=== PATIENT | male | born 1965 | race Caucasian/White ===

== ENCOUNTER 2017-10-14 14:31 | Inpatient (IN) | payer OTHER ==
--- NOTE | 2017-10-14 15:17 | PDOC ---
History of Present Illness - History of Present Illness Initial Comments: 10/14/17 16:02 The patient is a 52 M, with PMHx of MS and past EtOH and opioid abuse, who presents with MS flare. Patient reports left side numbness and tingling since last night. He also reports pain behind his eye, right worse than left and states that it twitches intermittently. He also reports incontinence at times, most likely due to his MS. He reports shortness of breath, and generalized pain and weakness. He states that his legs have given out recently and he states that when he falls he favors his left side. Patient denies fever, chills, chest pain Social Hx: 1 cig/day. Denies current EtOH and drug use. <Talita Mims - Last Filed: 10/14/17 16:02> <Princess Huang - Last Filed: 10/14/17 18:25> - General Chief Complaint: Pain Stated Complaint: LT SIDE NUMBNESS Time Seen by Provider: 10/14/17 15:17 Past History <Talita Mims - Last Filed: 10/14/17 16:02> - Past Medical History Anemia: No Asthma: No Cancer: No Cardiac Disorders: No CVA: No COPD: No CHF: No Dementia: No Diabetes: No GI Disorders: No Disorders: No HTN: No Hypercholesterolemia: No Kidney Stones: No Liver Disease: No Seizures: No Thyroid Disease: No Other medical history: multiple sclerosis - Surgical History Abdominal Surgery: No Appendectomy: No Cardiac Surgery: No Cholecystectomy: No Lung Surgery: No Neurologic Surgery: No Orthopedic Surgery: Yes (ARTHROSCOPIC SX R KNEE 09/2008 IN [facility]) - Reproductive History Testicular Surgery: No - Suicide/Smoking/Psychosocial Hx Smoking History: Current every day smoker Have you smoked in the past 12 months: Yes Number of Cigarettes Smoked Daily: 20 Information on smoking cessation initiated: No 'Breaking Loose' booklet given: 05/04/17 Hx Alcohol Use: No Drug/Substance Use Hx: No Substance Use Type: Alcohol, Opiates, Prescribed Hx Substance Use Treatment: Yes ([facility]) <Princess Huang - Last Filed: 10/14/17 18:25> - Past Medical History Allergies/Adverse Reactions: Allergies Allergy/AdvReac Type Severity Reaction Status Date / Time No Known Drug Allergies Allergy Unknown Verified 10/14/17 14:55 LIVER Allergy Hives Uncoded 10/14/17 14:55 Home Medications: Ambulatory Orders Oxycodone HCl/Acetaminophen [Percocet 5-325 mg Tablet] 1 tab PO Q6H PRN Review of Systems - Review of Systems Comments:: 10/14/17 16:02 GENERAL/CONSTITUTIONAL: No fever or chills. +generalized weakness. HEAD, EYES, EARS, NOSE AND THROAT: No change in vision. No ear pain or discharge. No sore throat. GASTROINTESTINAL: No nausea, vomiting, diarrhea or constipation. GENITOURINARY: No dysuria, frequency, or change in urination. CARDIOVASCULAR: No chest pain. +shortness of breath. RESPIRATORY: No cough, wheezing, or hemoptysis. MUSCULOSKELETAL: No joint or muscle swelling or pain. No neck or back pain. SKIN: No rash NEUROLOGIC: +Left upper and lower extremity numbness and weakness. No headache, vertigo, loss of consciousness. ENDOCRINE: No increased thirst. No abnormal weight change. HEMATOLOGIC/LYMPHATIC: No anemia, easy bleeding, or history of blood clots. ALLERGIC/IMMUNOLOGIC: No hives or skin allergy. <Talita Mims - Last Filed: 10/14/17 16:02> *Physical Exam - Vital Signs Last Vital Signs Temp Pulse Resp BP Pulse Ox 98.7 F 99 H 16 150/81 100 10/14/17 14:52 10/14/17 14:52 10/14/17 14:52 10/14/17 14:52 10/14/17 14:52 - Physical Exam Comments: 10/14/17 16:04 Constitutional: Awake, alert, oriented. No acute distress. Head: Normocephalic. Atraumatic Eyes: Right pupil - 4. Left pupil - 3. EOMI. Conjunctivae are not pale. ENT: Mucous membranes are moist and intact. Posterior pharynx without exudates or erythema. Uvula midline. Neck: Supple. Full ROM. No lymphadenopathy. Cardiovascular: Regular rate. Regular rhythm. S1, S2 regular. Distal pulses are 2+ and symmetric. Pulmonary/Chest: No evidence of respiratory distress. Clear to auscultation bilaterally No wheezing, rales or rhonchi. Abdominal: Soft and non-distended. There is no tenderness. No rebound, guarding or rigidity. No organomegaly. No palpable masses. Good bowel sounds. Back: No CVA tenderness. Musculoskeletal: No edema. No cyanosis. No clubbing. Full range of motion in all extremities. No calf tenderness. Radial/pedal pulses are intact and 2+ bilaterally Skin: Skin is warm and dry. No petechiae. No purpura. Neurological: Alert and oriented to person, place, and time. Cranial nerves II -XII are grossly intact. Normal speech. Muscle strength 4/5. Decreased sensation in left upper and lower extremities. No external signs of trauma. Psychiatric: Good eye contact. Normal interaction, affect and behavior. <Talita Mims - Last Filed: 10/14/17 16:02> - Vital Signs Last Vital Signs Temp Pulse Resp BP Pulse Ox 98.7 F 99 H 16 150/81 100 10/14/17 14:52 10/14/17 14:52 10/14/17 14:52 10/14/17 14:52 10/14/17 14:52 <Princess Huang - Last Filed: 10/14/17 18:25> Heart Score/ECG Review - ECG Intrepretation Comment:: 10/14/17 16:23 sinus at 89, nl axis, nl interval, no acute st/t wave findings <Princess Huang - Last Filed: 10/14/17 18:25> ED Treatment Course - LABORATORY CBC & Chemistry Diagram: 10/14/17 16:14 10/14/17 16:14 <Princess Huang - Last Filed: 10/14/17 18:25> Medical Decision Making - Medical Decision Making 10/14/17 15:28 a/p: 52yo male with hx of MS on copaxone with recent falls, L sided numbness, eye pain concerning for an MS flair. States he has been compliant with his copaxone, but with R eye pain, photophobia - has been at [facility] multiple times for MS flair and received IV solumedrol. does not follow with a neurologist -fall last night and hit his head - will obtain head ct, will need MRI -labs -hx of drug use, will check drug screen, pt denies recent drug use -decreased sensation to L side -will check labs, ekg, cxr, head ct -ivf hydration -call placed to Dr. Figueroa from neuro, though I suspect this is an MS flair and will start IV solumedrol 10/14/17 15:31 optic nerve size <5 on bedside u/s b/l 10/14/17 16:[address] Figueroa - recommends starting iv solumedrol will see in consult recommends MRI w/wo brain will need admission 10/14/17 18:03 pending official radiology read - but no acute findings on cxr or head ct will admit to [facility] for MS flair 10/14/17 18:[address] Caba who accepts pt to service <Princess Huang - Last Filed: 10/14/17 18:25> *DC/Admit/Observation/Transfer - Attestations Scribe Attestion: 10/14/17 16:07 Documentation prepared by Talita Mims, acting as outside medical sales representative for Princess Huang DO. <Talita Mims - Last Filed: 10/14/17 16:02> - Discharge Dispostion Admit: Yes - Attestations Physician Attestion: 10/14/17 15:41 I, Dr. Princess Huang, DO, attest that this document has been prepared under my direction and personally reviewed by me in its entirety. I further attest, that it accurately reflects all work, treatment, procedures and medical decision -making performed by me. <Princess Huang - Last Filed: 10/14/17 18:25> Diagnosis at time of Disposition: Multiple sclerosis exacerbation - Discharge Dispostion Condition at time of disposition: Fair
[2017-10-14] MEDS ORDERED: SODIUM CHLORIDE 0.9% 1000 ML INFUS.BAG IV ONE (15:27)
[2017-10-14] MEDS ORDERED: methylPREDNISolone NA SUCC 125 MG/2 ML VIAL IVPB ONE (16:20)
[2017-10-14 16:27] LABS: BASO % 0.8 % (0-2.0); EOS % 0.4 % (0-4.5); HEMATOCRIT 37.5 % (35.4-49); HEMOGLOBIN 12.6 GM/dL (11.7-16.9); MCH 29.7 pg (25.7-33.7); MCHC 33.5 g/dl (32.0-35.9); MEAN CELL VOLUME 88.6 fl (80-96); MEAN PLT VOLUME 7.8 fl (7.5-11.1); MONO % 9.8 % (3.8-10.2); PLATELET COUNT 350 K/MM3 (134-434); RBC 4.23 M/mm3 (4.00-5.60); WHITE BLOOD COUNT 10.2 K/mm3 (4.0-10.0)
[2017-10-14] MEDS ORDERED: methylPREDNISolone NA SUCC 1000 MG/8 ML VIAL ONE (16:43)
[2017-10-14 16:54] LABS: ALBUMIN 3.5 g/dl (3.4-5.0); ANION GAP 5 (8-16); BILIRUBIN,TOTAL 0.5 mg/dL (0.2-1.0); BLOOD UREA NITROGEN 10 mg/dL (7-18); CALCIUM 8.6 mg/dL (8.5-10.1); CHLORIDE 105 mmol/L (98-107); CO2 31 mmol/L (21-32); CREATININE 0.9 mg/dL (0.7-1.3); GLUCOSE,RANDOM 83 mg/dL (74-106); POTASSIUM 4.3 mmol/L (3.5-5.1); SGOT/AST 29 U/L (15-37); SGPT/ALT 52 U/L (12-78); SODIUM 141 mmol/L (136-145); TOT PROT 7.4 g/dl (6.4-8.2)
[2017-10-14 16:57] LABS: ALK PHOS 68 U/L (45-117)
--- NOTE | 2017-10-14 19:27 | PN ---
Teaching Attending Note Name of Resident: Alysa Kiser ATTENDING PHYSICIAN STATEMENT I saw and evaluated the patient. I reviewed the resident's note and discussed the case with the resident. I agree with the resident's findings and plan as documented. SUBJECTIVE: 52 M w. Pmhx. of MS and hx. of ETOH/Opiod abuse who presents with L. sided numbness and tingling. Also states he has [ain behind his eyes. Notes this is worse in L. eye. Also, states he has had increased falling, more toward the left side. Denies any chest pain or pressure. OBJECTIVE: Physical: VS: Vital Signs Period Temp Pulse Resp BP Sys/James Pulse Ox Last 24 Hr 97.8 F-98.7 F 84-99 16-18 118-150/81-82 98-100 GEN:NAD, Resting in bed, AA0X3 HEENT: NCAT, PERRL, Throat without erythema or exudates CARD: RRR S1, S2 RESP: CTAB ABD: BSx4, NTD to palpation EXT/NEURO: MS decreased in LUE and LLE +2/5, RUE/RLE +3/5 Sensation decreased left face and extremities, unable to do occular movements due to pain. CBCD WBC 10.2 K/mm3 (4.0-10.0) H D 10/14/17 16:14 RBC 4.23 M/mm3 (4.00-5.60) 10/14/17 16:14 Hgb 12.6 GM/dL (11.7-16.9) 10/14/17 16:14 Hct 37.5 % (35.4-49) 10/14/17 16:14 MCV 88.6 fl (80-96) 10/14/17 16:14 MCHC 33.5 g/dl (32.0-35.9) 10/14/17 16:14 RDW 16.0 % (11.9-15.9) H 10/14/17 16:14 Plt Count 350 K/MM3 (134-434) 10/14/17 16:14 MPV 7.8 fl (7.5-11.1) D 10/14/17 16:14 CMP Sodium 141 mmol/L (136-145) 10/14/17 16:14 Potassium 4.3 mmol/L (3.5-5.1) 10/14/17 16:14 Chloride 105 mmol/L (98-107) 10/14/17 16:14 Carbon Dioxide 31 mmol/L (21-32) 10/14/17 16:14 Anion Gap 5 (8-16) L 10/14/17 16:14 BUN 10 mg/dL (7-18) D 10/14/17 16:14 Creatinine 0.9 mg/dL (0.7-1.3) 10/14/17 16:14 Creat Clearance w eGFR > 60 (>60) 10/14/17 16:14 Random Glucose 83 mg/dL (74-106) D 10/14/17 16:14 Calcium 8.6 mg/dL (8.5-10.1) 10/14/17 16:14 Total Bilirubin 0.5 mg/dL (0.2-1.0) D 10/14/17 16:14 AST 29 U/L (15-37) D 10/14/17 16:14 ALT 52 U/L (12-78) 10/14/17 16:14 Alkaline Phosphatase 68 U/L (45-117) 10/14/17 16:14 Total Protein 7.4 g/dl (6.4-8.2) 10/14/17 16:14 Albumin 3.5 g/dl (3.4-5.0) 10/14/17 16:14 CARDIAC ENZYMES Creatine Kinase 125 IU/L (39-308) 10/14/17 16:14 Troponin I < 0.02 ng/ml (0.00-0.05) 10/14/17 16:14 EKG: sinus at 89, nl axis, nl interval, no acute st/t wave findings ASSESSMENT AND PLAN: 52 M with hx. of MS who presents with L. sided numbness, tingling 1.) MS Flare - Solu-Medrol 1000 daily - MRI Brain - Neuro consult - TSH, B12, Folate - PT/OT 2.) Hx. of Opiod/ETOH abuse - U tox 3.) Dvt Ppx - Scds Place in Tele
--- NOTE | 2017-10-14 20:10 | HP ---
CHIEF COMPLAINT: MS Flare PCP: Dr Mohsen Chapman HISTORY OF PRESENT ILLNESS: 52yo M w/ PMHx of Multiple Sclerosis since 2004 w/ multiple flare-ups who presents with signs/symptoms of an MS flare. Last night he felt numbness along left side of body and face, in addition to eye pain, blurry vision, and generalized body weakness. He normally ambulates in a wheelchair, but yesterday he stood up and felt his legs giving out, and subsequently fell onto his L side , prompting him to come to the hospital. He just moved from [place], where he followed w/ a neurologist and had numerous admissions for MS flares. He currently lives alone, w/o any family or aids. In the ER, vital signs were stable. Head CT was obtained which showed no acute pathology on their read. Labs are wnl. Neurology Dr Figueroa was contacted, who recommended starting IV Solumedrol and MRI tmrw. Recent Travel: Moved from [place] PAST MEDICAL HISTORY: Multiple Sclerosis, past EtOH abuse, ?past opioid abuse PAST SURGICAL HISTORY: None Social History: Smoking: Yes. Alcohol: Denies Drugs: Denies Family History: Allergies: No Known Drug Allergies Allergy (Unknown, Verified 10/14/17 14:55). LIVER Allergy (Uncoded 10/14/17 14:55) Hives REVIEW OF SYSTEMS CONSTITUTIONAL: +generalized weakness Absent: fever, chills, diaphoresis, malaise, loss of appetite, weight change HEENT: Absent: rhinorrhea, nasal congestion, throat pain, throat swelling, difficulty swallowing, mouth swelling, ear pain, eye pain, visual changes CARDIOVASCULAR: Absent: chest pain, syncope, palpitations, irregular heart rate , lightheadedness, peripheral edema RESPIRATORY: Absent: cough, shortness of breath, dyspnea with exertion, orthopnea, wheezing, stridor, hemoptysis GASTROINTESTINAL:Absent: abdominal pain, abdominal distension, nausea, vomiting , diarrhea, constipation, melena, hematochezia GENITOURINARY: Absent: dysuria, frequency, urgency, hesitancy, hematuria, flank pain, genital pain MUSCULOSKELETAL: Absent: myalgia, arthralgia, joint swelling, back pain, neck pain SKIN: Absent: rash, itching, pallor HEMATOLOGIC/IMMUNOLOGIC: Absent: easy bleeding, easy bruising, lymphadenopathy, frequent infections ENDOCRINE:Absent: unexplained weight gain, unexplained weight loss, heat intolerance, cold intolerance NEUROLOGIC: +focal weakness, unsteady gait Absent: headache, paresthesias, dizziness, seizure, mental status changes, bladder or bowel incontinence PSYCHIATRIC: Absent: anxiety, depression, suicidal or homicidal ideation, hallucinations. PHYSICAL EXAMINATION Vital Signs Period Temp Pulse Resp BP Sys/James Pulse Ox Last 24 Hr 97.8 F-98.7 F 84-99 16-18 118-150/81-82 98-100 GEN: AAOx3, NAD, lying comfortably, smiling at examiner HEENT: PERRLA, EOMi, +pain w/ EOM, no nystagmus CV: S1, S2, RRR LUNG: CTABL ABD: Distended, nontender, soft, normoactive BS MSK: +4/5 strength in UE and LE bilaterally NEURO: CN 2-12 grossly intact Decreased sensation to L face, LUE, LLE +dysmetria, disdiadokinessia No focal muscle weakness Home Medications Medication Instructions Recorded Oxycodone HCl/Acetaminophen 1 tab PO Q4H PRN 05/04/17 [Percocet 5-325 mg Tablet] Gabapentin [Neurontin] 300 mg PO TID 10/14/17 Glatiramer Acetate [COPAXONE (Non 20 mg SQ DAILY 10/14/17 Formulary)] ASSESSMENT/PLAN: 52yo M w/ PMHx of Multiple Sclerosis since 2004 who presents with signs/ symptoms of MS flare. # Multiple Sclerosis Flare -- Pt presents w/ multiple neurological complaints c/w MS flare. Unlikely TIA/ CVA. Neurology ([facility]) contacted in ER. Will treat w/ IV Solu-medrol 1g daily. Possible ?past hx of opioid abuse according to ER note, so will pain control w/ IV Tylenol for now. MRI w/ contrast ordered for tmrw. Patient will also need social work/case mgmt, not able to take care of himself alone. # Leukocytosis -- Likely 2/2 home Copaxone use # FEN/PPx -- Regular diet. SCDs. PT ordered # Dispo -- Admit to med/surg Case d/w Dr Alvarado & Dr Syed Ha MD - PGY1 Night Ticket Puller. Dr Diaz to takeover care in the AM Visit type - Emergency Visit Emergency Visit: Yes ED Registration Date: 10/14/17 Care time: The patient presented to the Emergency Department on the above date and was hospitalized for further evaluation of their emergent condition. - New Patient This patient is new to me today: Yes Date on this admission: 10/15/17 - Critical Care Critical Care patient: No Hospitalist Screening - Colonoscopy Questionnaire Colonoscopy Questionnaire: Colonoscopy Questionnaire - Patient: 50 - 75 years old and never had a screening colonoscopy: Unknown History of colon or rectal polyps, or CA: Unknown History of IBD, Crohn's disease or UC: Unknown History of abdominal radiation therapy as a child: Unknown - Relative: 1 with colon or rectal CA, or polyps at age 60 or younger: Unknown Colon or rectal CA diagnosed at age 45 or younger: Unknown Multiple relatives with colon or rectal CA: Unknown - Outcome: Screening Result: Negative Screen
[2017-10-14 20:17] LABS: URINE APPEARANCE CLEAR; URINE BILIRUBIN NEGATIVE (<2.0 mg/dL); URINE BLOOD NEGATIVE (NEGATIVE); URINE COLOR LTYELLOW; URINE GLUCOSE (UA) NEGATIVE (NEGATIVE); URINE KETONE NEGATIVE (NEGATIVE); URINE LEUK ESTERASE NEGATIVE (NEGATIVE); URINE NITRITE NEGATIVE (NEGATIVE); URINE PROTEIN NEGATIVE (NEGATIVE)
[2017-10-14 20:28] LABS: COCAINE, UR NEGATIVE ng/ml (CUTOFF=300); URINE AMPHETAMINES NEGATIVE ng/ml (CUTOFF=500); URINE BARBITURATES NEGATIVE ng/ml (CUTOFF=200); URINE BENZODIAZEPINES NEGATIVE ng/ml (CUTOFF=200)
[2017-10-14 20:29] LABS: METHADONE, UR NEGATIVE ng/ml (CUTOFF=300); OPIATES, URI NEGATIVE ng/ml (CUTOFF=300); PHENCYCLIDINE,URINE NEGATIVE ng/ml (CUTOFF=25)
[2017-10-14] MEDS ORDERED: GABAPENTIN 100 MG CAPSULE (FP) ONE (22:25)
[2017-10-14] MEDS: GABAPENTIN 300 MG CAPSULE (FP) PO SCH (22:35)
[2017-10-15] MEDS ORDERED: ACETAMINOPHEN 1000 MG/100 ML VIAL (NON FORMULARY) IVPB PRN (00:13)
[2017-10-15] MEDS ORDERED: ACETAMINOPHEN INJECTION 100 ML IVPB ONE (01:29)
[2017-10-15] MEDS: GABAPENTIN 300 MG CAPSULE (FP) PO SCH ×3 (06:25→21:24)
[2017-10-15 07:06] LABS: HEMATOCRIT 36.9 % (35.4-49); HEMOGLOBIN 12.3 GM/dL (11.7-16.9); MCH 29.8 pg (25.7-33.7); MCHC 33.4 g/dl (32.0-35.9); MEAN CELL VOLUME 89.1 fl (80-96); MEAN PLT VOLUME 7.5 fl (7.5-11.1); PLATELET COUNT 337 K/MM3 (134-434); RBC 4.15 M/mm3 (4.00-5.60); RDW 15.6 % (11.9-15.9); WHITE BLOOD COUNT 10.7 K/mm3 (4.0-10.0)
[2017-10-15 07:35] LABS: ANION GAP 4 (8-16); BLOOD UREA NITROGEN 16 mg/dL (7-18); CALCIUM 8.6 mg/dL (8.5-10.1); CHLORIDE 106 mmol/L (98-107); CO2 28 mmol/L (21-32); CREATININE 0.9 mg/dL (0.7-1.3); GLUCOSE,RANDOM 146 mg/dL (74-106); MAGNESIUM 2.5 mg/dL (1.8-2.4); PHOSPHOROUS 3.7 mg/dL (2.5-4.9); POTASSIUM 4.5 mmol/L (3.5-5.1); SODIUM 138 mmol/L (136-145)
[2017-10-15] MEDS ORDERED: methylPREDNISolone NA SUCC 1000 MG/8 ML VIAL IVPB SCH (10:00)
[2017-10-15] MEDS ORDERED: HYDROCORTISONE SOD SUCCINATE 250 MG/2 ML ML ONE (10:13)
[2017-10-15] MEDS ORDERED: methylPREDNISolone NA SUCC 1000 MG/8 ML VIAL ONE (10:20)
[2017-10-15] MEDS: METHYLPREDNISOLONE NA SUCC 1,000 MG in DEXTROSE 5%-WATER - 250 ML IVPB SCH (10:30)
[2017-10-15 11:11] VITALS: BMI 27.8
--- NOTE | 2017-10-15 11:34 | CON.NEURO ---
Consult - Alcohol/Substance Use Hx Alcohol Use: No - Smoking History Smoking history: Current some day smoker Have you smoked in the past 12 months: Yes Aproximately how many cigarettes per day: 1 Home Medications - Allergies Allergies/Adverse Reactions: Allergies Allergy/AdvReac Type Severity Reaction Status Date / Time No Known Drug Allergies Allergy Unknown Verified 10/14/17 14:55 LIVER Allergy Hives Uncoded 10/14/17 14:55 - Home Medications Home Medications: Ambulatory Orders Oxycodone HCl/Acetaminophen [Percocet 5-325 mg Tablet] 1 tab PO Q4H PRN Gabapentin [Neurontin] 300 mg PO TID 10/14/17 Glatiramer Acetate [COPAXONE (Non Formulary)] 20 mg SQ DAILY 10/14/17 Family Disease History - Family Disease History Family Disease History: Diabetes: Mother, Heart Disease: Sister Physical Exam-Neuro Vital Signs: Vital Signs Temperature 97.8 F 10/15/17 07:45 Pulse Rate 93 H 10/15/17 11:05 Respiratory Rate 18 10/15/17 11:05 Blood Pressure 119/77 10/15/17 11:05 O2 Sat by Pulse Oximetry (%) 94 L 10/15/17 11:05 Labs: CBC, BMP 10/15/17 06:00 10/15/17 06:00 Assessment/Plan cc History of MS , came with left arm, face and leg numbness HPI 52 year old male history of MS for last 17 years. Patient is wheel chair bound and he recently moved to [place] from [place], 9 months ago. He felt left arm , face and leg numbness and generalized weaknes.alma delia Erazo is on copaxone currently. He has multiple admission for MS flare in past. PMH MS , ETOH and opioid abuse Smoker, Disabled FH ,ROS, SH reviewed in [facility] Allergies: No Known Drug Allergies Allergy (Unknown, Verified 10/14/17 14:55). LIVER Allergy (Uncoded 10/14/17 14:55) Hives Home Medications Medication Instructions Recorded Oxycodone HCl/Acetaminophen 1 tab PO Q4H PRN 05/04/17 [Percocet 5-325 mg Tablet] Gabapentin [Neurontin] 300 mg PO TID 10/14/17 Glatiramer Acetate [COPAXONE (Non 20 mg SQ DAILY 10/14/17 Formulary)] Neurological Examination Alert oriented x 3, speehc is normal , no acute distress CN eomi, pupils reactive, no face asymmetry, diminished sensation on left side of face Strenght in upper extremity is normal, slight dysmetria in upper extremity Lower extremity is garde 1+ and diminished sensation in left arm and leg Assessment- MS , acute flare , left sided face arm and leg numbness Plan- IV solumedrol 1 gm for three days - Consider Short term Rehab -mri of brain with and without contrast Thanking you so much Darian Figueroa MD
--- NOTE | 2017-10-15 11:41 | CONSULT ---
Admitting History and Physical - Admission History of Present Illness: 52yo M w/ PMHx of Multiple Sclerosis since 2004 who presents with signs/ symptoms of MS flare. Selected Entries 10/14/17 10/14/17 10/15/17 14:52 18:53 00:30 Temperature 98.7 F 97.8 F 99 F 10/15/17 07:45 Temperature 97.8 F Laboratory Tests 10/14/17 10/15/17 16:14 06:00 WBC 10.2 H D 10.7 H History Source: Patient, Medical Record Limitations to Obtaining History: No Limitations - Smoking History Smoking history: Current some day smoker Have you smoked in the past 12 months: Yes Aproximately how many cigarettes per day: 1 - Alcohol/Substance Use Hx Alcohol Use: No History - Admission Reason For Visit: EXACERBATION OF MULTIPLE SCLEROSIS - Diagnostics X-ray: Pending CT Scan: Report Reviewed - General Mental Status: Alert and Oriented, Awake and Alert, Able to Follow Commands Attention: Intact Ability to Follow Directions: Excellent Head/Neck Control: WFL - Hearing Hearing: Normal Speech Evaluation - Communication Primary Language: MALTESE Communication: Yes: Within Normal Limits Oral Expression Ability: Yes: No Impairment - Speech Production Able to Make Needs Known: Yes: WNL Intelligibility: Yes: WNL - Speech Characteristics Voice Loudness: Mildly Soft/Quiet Voice Pitch: Yes: Normal Voice Phonatory-based Quality: Yes: Normal Speech Pattern: Normal Speech Clarity: < 100% Nasal Resonance: Normal - Language/Auditory Comprehension Follows: Yes: 2 Stage Simple Commands - Language/Verbal Expression Able to Respond to Simple Queries: Yes: WNL Able to Communicate Wants and Needs: Yes: WNL Functional Communication Status: Yes: WNL - Swallow Evaluation/Bedside Assessment Current Nutritional Intake: Regular, Thin Liquids Oral Secretions: Yes: WFL Dentition: Yes: Edentulous Facial Symmetry at Rest: Facial Droop Left Facial Symmetry on Retraction: Facial Droop Left Facial Movement: Controlled Against Resistance Opening: Normal Against Resistance Closing: Normal Pucker Lips: Normal Smile: Normal Lingual Movement: Normal, Symmetric Lingual Speed of Movement: Normal Lingual Movement Strgth Against Opposition: Normal Lingual Movement Characteristics: Normal Velopharyngeal Movement: Normal Laryngeal Elevation: WFL Laryngeal Movement: Able to Palpate Rate of Intake: WFL Bolus Size: WFL Labial Seal: WFL Chewing: Impaired (edentulous.Requires soft, cohesive, easy to chew foods.) Oral Prep Time: WFL A-P Transit: WFL Pocketing: None Timing of Swallow: WFL Coughing/Throat Clear: No (3 oz water test (-)) Change in Voice: No Recommendations - Speech Evaluation, Impression/Plan Impression: 3 oz water test (-) - Disposition Discharge to: To be Determined - Dysphagia Impressions/Plan Swallowing Skills: WFL Dysphagia Impressions: No Impairment *Silent aspiration: cannot be R/O at bedside - Recommendations Diet Consistency: Regular (edentulous.Requires soft, cohesive, easy to chew foods.) Medication Administration: Whole with water Liquids: Thin Liquids
--- NOTE | 2017-10-15 12:24 | EKG ---
Test Reason : Blood Pressure : / mmHG Vent. Rate : 089 BPM Atrial Rate : 089 BPM P-R Int : 154 ms QRS Dur : 086 ms QT Int : 374 ms P-R-T Axes : 037 045 028 degrees QTc Int : 455 ms POOR DATA QUALITY, INTERPRETATION MAY BE ADVERSELY AFFECTED NORMAL SINUS RHYTHM POSSIBLE LEFT ATRIAL ENLARGEMENT BORDERLINE ECG WHEN COMPARED WITH ECG OF 04-MAY-2017 13:52, CRITERIA FOR SEPTAL INFARCT ARE NO LONGER PRESENT T WAVE AMPLITUDE HAS INCREASED IN LATERAL LEADS Confirmed by FREYA CORLEY MD ([id number]) on 10/15/2017 12:24:10 PM Referred By: Confirmed By:FREYA CORLEY MD
--- NOTE | 2017-10-15 13:30 | PN ---
Progress Note, Physician Chief Complaint: complaining of diffuse body pain says its his MS flare - Current Medication List Current Medications: Active Medications Acetaminophen (Ofirmev Injection -) 1,000 mg IVPB Q6H PRN PRN Reason: Pain Last Admin: 10/15/17 02:08 Dose: 1,000 mg Gabapentin (Neurontin -) 300 mg PO TID [facility] Last Admin: 10/15/17 06:25 Dose: 300 mg Methylprednisolone Sodium (Succinate 1,000 mg/ Dextrose) 258 mls @ 258 mls/hr IVPB DAILY [facility] Last Admin: 10/15/17 10:30 Dose: 258 mls/hr Morphine Sulfate (Morphine Injection -) 4 mg IVPUSH Q4H PRN PRN Reason: PAIN LEVEL 7 - 10 Oxycodone/Acetaminophen (Percocet 5/325 -) 2 combo PO Q6HPO PRN PRN Reason: PAIN LEVEL 7 - 10 - Objective Vital Signs: Vital Signs Temperature 97.8 F 10/15/17 07:45 Pulse Rate 93 H 10/15/17 11:05 Respiratory Rate 18 10/15/17 11:05 Blood Pressure 119/77 10/15/17 11:05 O2 Sat by Pulse Oximetry (%) 94 L 10/15/17 11:05 Constitutional: Yes: Calm Cardiovascular: Yes: Regular Rate and Rhythm, S1, S2 Respiratory: Yes: CTA Bilaterally Gastrointestinal: Yes: Normal Bowel Sounds, Soft Edema: No Neurological: Yes: Alert, Oriented Labs: CBC, BMP 10/15/17 06:00 10/15/17 06:00 Problem List - Problems (1) Multiple sclerosis exacerbation Assessment/Plan: iv steroids pain control neurology evaluation neurontin 300mg tid Code(s): G35 - MULTIPLE SCLEROSIS
[2017-10-15] MEDS ORDERED: ACETAMINOPHEN 325 MG TABLET (FP) PO PRN (13:33)
[2017-10-15] MEDS: morphine SULFATE 4 MG/ML VIAL IVPUSH PRN ×3 (13:49→23:12)
[2017-10-15] MEDS: DOCUSATE SODIUM 100 MG CAPSULE (FP) PO SCH ×2 (21:24→21:27)
[2017-10-16] MEDS: morphine SULFATE 4 MG/ML VIAL IVPUSH PRN ×5 (03:59→20:35)
[2017-10-16] MEDS: GABAPENTIN 300 MG CAPSULE (FP) PO SCH ×3 (06:13→22:10)
--- NOTE | 2017-10-16 09:08 | PN ---
Progress Note (short form) - Note Progress Note: 52 year old male, history of MS for 17 years came with left arm, face and leg numbness Patient is wheel chair bound and he recently moved to [place] from [place], 9 months ago. He felt left arm , face and leg numbness and generalized weaknes.alma delia Erazo is on copaxone currently. He has multiple admission for MS flare in past. A Neurological Examination Alert oriented x 3, speehc is normal , no acute distress CN eomi, pupils reactive, no face asymmetry, diminished sensation on left side of face Strenght in upper extremity is normal, slight dysmetria in upper extremity Lower extremity is garde 1+ and diminished sensation in left arm and leg MRI of brain did not show any enhancing lesion Assessment- MS , acute flare , left sided face arm and leg numbness Plan- IV solumedrol 1 gm for three days( Patient is requesting for five days, though data is not significant different) -mri result appreciated continue current care, S/W Consult for short temr rehab Thanking you so much Darian Figueroa MD
--- NOTE | 2017-10-16 09:11 | PN ---
Progress Note, Physician - Current Medication List Current Medications: Active Medications Acetaminophen (Tylenol -) 650 mg PO Q4H PRN PRN Reason: FEVER Docusate Sodium (Colace -) 300 mg PO HS [facility] Last Admin: 10/15/17 21:27 Dose: Not Given Gabapentin (Neurontin -) 300 mg PO TID [facility] Last Admin: 10/16/17 06:13 Dose: 300 mg Methylprednisolone Sodium (Succinate 1,000 mg/ Dextrose) 258 mls @ 258 mls/hr IVPB DAILY [facility] Last Admin: 10/15/17 10:30 Dose: 258 mls/hr Morphine Sulfate (Morphine Sulfate) 4 mg IVPUSH Q4H PRN PRN Reason: PAIN LEVEL 7 - 10 Last Admin: 10/16/17 08:20 Dose: 4 mg - Objective Vital Signs: Vital Signs Temperature 97.5 F L 10/16/17 06:00 Pulse Rate 73 10/16/17 06:00 Respiratory Rate 20 10/16/17 06:00 Blood Pressure 103/60 10/16/17 06:00 O2 Sat by Pulse Oximetry (%) 95 10/15/17 21:00 Cardiovascular: Yes: S1, S2 Respiratory: Yes: Regular, CTA Bilaterally Gastrointestinal: Yes: Normal Bowel Sounds, Soft Neurological: Yes: Numbness, Tingling Labs: CBC, BMP 10/15/17 06:00 10/15/17 06:00 Problem List - Problems (1) Multiple sclerosis exacerbation Assessment/Plan: iv steroids pain control neurology evaluation neurontin 300mg tid Code(s): G35 - MULTIPLE SCLEROSIS (2) Opioid abuse Code(s): F11.10 - OPIOID ABUSE, UNCOMPLICATED
[2017-10-16] MEDS: METHYLPREDNISOLONE NA SUCC 1,000 MG in DEXTROSE 5%-WATER - 250 ML IVPB SCH (09:40)
[2017-10-16] MEDS ORDERED: INSULIN (NOVOLOG) ASPART 100 UNITS/ML 10ML VIAL ONE ×2 (11:45→16:16)
[2017-10-16] MEDS: INSULIN (NOVOLOG) ASPART 100 UNITS/ML 10ML VIAL SQ SCH ×3 (12:11→22:11)
--- NOTE | 2017-10-16 12:13 | PN ---
Progress Note, [facility] - Note Progress Note: MRI noted. Tolerating diet with good appetite. No signs of dysphagia at this time.
[2017-10-16] MEDS ORDERED: PT OWN MED DRAWER 7, Y5N ONE (18:19)
[2017-10-16] MEDS: DOCUSATE SODIUM 100 MG CAPSULE (FP) PO SCH (22:10)
[2017-10-16] MEDS: oxyCODONE HCL 5 MG TABLET PO PRN (22:10)
[2017-10-16] MEDS: ACETAMINOPHEN 325 MG TABLET (FP) PO PRN (22:11)
[2017-10-17] MEDS: morphine SULFATE 4 MG/ML VIAL IVPUSH PRN ×4 (03:17→20:15)
[2017-10-17] MEDS: oxyCODONE HCL 5 MG TABLET PO PRN ×2 (06:42→18:37)
[2017-10-17] MEDS: GABAPENTIN 300 MG CAPSULE (FP) PO SCH ×3 (06:42→21:40)
[2017-10-17] MEDS: ACETAMINOPHEN 325 MG TABLET (FP) PO PRN ×2 (06:42→18:37)
[2017-10-17] MEDS: INSULIN (NOVOLOG) ASPART 100 UNITS/ML 10ML VIAL SQ SCH ×4 (06:43→21:41)
--- NOTE | 2017-10-17 08:24 | PN ---
Progress Note, Physician - Current Medication List Current Medications: Active Medications Acetaminophen (Tylenol -) 650 mg PO Q4H PRN PRN Reason: FEVER Acetaminophen (Tylenol -) 325 mg PO Q6H PRN PRN Reason: PAIN LEVEL 4 - 6 Last Admin: 10/17/17 06:42 Dose: 325 mg Docusate Sodium (Colace -) 300 mg PO HS [facility] Last Admin: 10/16/17 22:10 Dose: 300 mg Gabapentin (Neurontin -) 300 mg PO TID [facility] Last Admin: 10/17/17 06:42 Dose: 300 mg Methylprednisolone Sodium (Succinate 1,000 mg/ Dextrose) 258 mls @ 258 mls/hr IVPB DAILY [facility] Stop: 10/17/17 10:59 Insulin Aspart (Novolog Vial) 0 units SQ ACHS AIYANA PRN Reason: Protocol Last Admin: 10/17/17 06:43 Dose: Not Given Morphine Sulfate (Morphine Sulfate) 4 mg IVPUSH Q4H PRN PRN Reason: PAIN LEVEL 6-10 Last Admin: 10/17/17 03:17 Dose: 4 mg Oxycodone HCl (Roxicodone -) 5 mg PO Q6H PRN PRN Reason: PAIN LEVEL 4 - 6 Last Admin: 10/17/17 06:42 Dose: 5 mg - Objective Vital Signs: Vital Signs Temperature 97.9 F 10/17/17 06:00 Pulse Rate 70 10/17/17 06:00 Respiratory Rate 20 10/17/17 06:00 Blood Pressure 127/78 10/17/17 06:00 O2 Sat by Pulse Oximetry (%) 98 10/16/17 21:00 Cardiovascular: Yes: Regular Rate and Rhythm Respiratory: Yes: Regular, CTA Bilaterally Gastrointestinal: Yes: Normal Bowel Sounds, Soft Neurological: Yes: Weakness Labs: CBC, BMP 10/15/17 06:00 10/15/17 06:00 Problem List - Problems (1) Multiple sclerosis exacerbation Assessment/Plan: iv steroids pain control neurology evaluation noted physical therapy then snf neurontin 300mg tid Code(s): G35 - MULTIPLE SCLEROSIS (2) Opioid abuse Code(s): F11.10 - OPIOID ABUSE, UNCOMPLICATED (3) Hyperthyroidism Assessment/Plan: endo Code(s): E05.90 - THYROTOXICOSIS, UNSP WITHOUT THYROTOXIC CRISIS OR STORM
--- NOTE | 2017-10-17 08:31 | PN ---
Progress Note (short form) - Note Progress Note: 52 year old male, history of MS for 17 years came with left arm, face and leg numbness Patient is wheel chair bound and he recently moved to [place] from [place], 9 months ago. He felt left arm , face and leg numbness and generalized weaknes.alma delia Erazo is on copaxone currently. He has multiple admission for MS flare in past. A Neurological Examination Alert oriented x 3, speehc is normal , no acute distress CN eomi, pupils reactive, no face asymmetry, diminished sensation on left side of face Strenght in upper extremity is normal, slight dysmetria in upper extremity Lower extremity is garde 1+ and diminished sensation in left arm and leg MRI of brain did not show any enhancing lesion Assessment- MS , acute flare , left sided face arm and leg numbness, still have symptoms, and there is minimal improvement Plan- Continue IV solumedrol, If patient stays it can be extended to 5 days or can be given at short term rehab facility - Continue current level of care Thanking you so much Darian Figueroa MD
[2017-10-17] MEDS ORDERED: METHYLPREDNISOLONE NA SUCC 1,000 MG in DEXTROSE 5%-WATER - 250 ML IVPB SCH (10:00)
[2017-10-17] MEDS ORDERED: PT OWN MED DRAWER 7, Y5N ONE ×2 (10:24→11:33)
[2017-10-17] MEDS: METHYLPREDNISOLONE NA SUCC 1,000 MG in DEXTROSE 5%-WATER - 250 ML IVPB SCH (12:00)
[2017-10-17] MEDS ORDERED: INSULIN (NOVOLOG) ASPART 100 UNITS/ML 10ML VIAL ONE (17:30)
[2017-10-17] MEDS: DOCUSATE SODIUM 100 MG CAPSULE (FP) PO SCH (21:40)
[2017-10-18] MEDS: morphine SULFATE 4 MG/ML VIAL IVPUSH PRN ×3 (00:15→10:15)
[2017-10-18] MEDS: GABAPENTIN 300 MG CAPSULE (FP) PO SCH (06:25)
[2017-10-18] MEDS: INSULIN (NOVOLOG) ASPART 100 UNITS/ML 10ML VIAL SQ SCH ×2 (06:25→11:13)
[2017-10-18] MEDS: oxyCODONE HCL 5 MG TABLET PO PRN (07:56)
[2017-10-18] MEDS: ACETAMINOPHEN 325 MG TABLET (FP) PO PRN (07:57)
[2017-10-18 08:30] VITALS: BP 148/93; PULSE 92; TEMP 98
[2017-10-18] MEDS ORDERED: methylPREDNISolone NA SUCC 1000 MG/8 ML VIAL IVPB ONE (08:50)
--- NOTE | 2017-10-18 08:53 | PN ---
Progress Note (short form) - Note Progress Note: 52 year old male, history of MS for 17 years came with left arm, face and leg numbness Patient is wheel chair bound and he recently moved to [place] from [place], 9 months ago. He felt left arm , face and leg numbness and generalized weaknes.alma delia Erazo is on copaxone currently. He has multiple admission for MS flare in past. He still feeling left arm and leg numbness. Neurological Examination Alert oriented x 3, speech is normal , no acute distress CN eomi, pupils reactive, no face asymmetry, diminished sensation on left side of face Strenght in upper extremity is normal, slight dysmetria in upper extremity Lower extremity is garde 1+ and diminished sensation in left arm and leg MRI of brain did not show any enhancing lesion Assessment- MS , acute flare , left sided face arm and leg numbness, still have symptoms, Plan-He finished three day course of solumedrol and Since He is here I would give him one extra dose, as he used to get five days in past . If he remains in hospital, extra dose can be given He has been accepted for short term rehab and waiting for placement Thanking you so much Darian Figueroa MD
[2017-10-18] MEDS ORDERED: METHYLPREDNISOLONE NA SUCC 1,000 MG in DEXTROSE 5%-WATER - 250 ML IVPB ONE (09:30)
--- NOTE | 2017-10-18 09:56 | CONSULT ---
Consult Consult Specialty:: endocrine Reason for Consultation:: abnormal thyroid levels - History of Present Illness Chief Complaint: anxiety History of Present Illness: 52yo M w/ PMHx of Multiple Sclerosis since 2004 w/ multiple flare-ups who presents with signs/symptoms of an MS flare.he has numbness along left side of body and face, in addition to eye pain, blurry vision, and generalized body weakness. He normally ambulates in a wheelchair, has difficulty with lower extremity weakness,states his daughter has thyroid problem.denies weight loss, fever or hair loss - Alcohol/Substance Use Hx Alcohol Use: No - Smoking History Smoking history: Current some day smoker Have you smoked in the past 12 months: Yes Aproximately how many cigarettes per day: 1 Home Medications - Allergies Allergies/Adverse Reactions: Allergies Allergy/AdvReac Type Severity Reaction Status Date / Time No Known Drug Allergies Allergy Unknown Verified 10/14/17 14:55 LIVER Allergy Hives Uncoded 10/14/17 14:55 - Home Medications Home Medications: Ambulatory Orders Oxycodone HCl/Acetaminophen [Percocet 5-325 mg Tablet] 1 tab PO Q4H PRN Gabapentin [Neurontin] 300 mg PO TID 10/14/17 Glatiramer Acetate [COPAXONE (Non Formulary)] 20 mg SQ DAILY 10/14/17 Family Disease History - Family Disease History Family Disease History: Diabetes: Mother, Heart Disease: Sister Review of Systems - Review of Systems Constitutional: reports: Weakness Eyes: reports: Double Vision HENT: reports: No Symptoms Neck: reports: No Symptoms Cardiovascular: reports: No Symptoms Respiratory: reports: No Symptoms Gastrointestinal: reports: Bloating Genitourinary: reports: No Symptoms Breasts: reports: No Symptoms Reported Musculoskeletal: reports: Muscle Pain, Muscle Weakness Neurological: reports: Numbness, Unsteady Gait, Weakness Endocrine: reports: No Symptoms Physical Exam Vital Signs: Vital Signs Temperature 98.0 F 10/18/17 08:29 Pulse Rate 92 H 10/18/17 08:29 Respiratory Rate 18 10/18/17 08:29 Blood Pressure 148/93 10/18/17 08:29 O2 Sat by Pulse Oximetry (%) 97 10/17/17 21:00 Constitutional: Yes: Anxious Eyes: Yes: EOM Intact HENT: Yes: Normocephalic Neck: Yes: Trachea Midline Cardiovascular: Yes: Regular Rate and Rhythm Respiratory: Yes: CTA Bilaterally Gastrointestinal: Yes: Normal Bowel Sounds ...Rectal Exam: Yes: Deferred Renal/: Yes: WNL Breast(s): Yes: WNL Musculoskeletal: Yes: Muscle Weakness Labs: CBC, BMP 10/15/17 06:00 10/15/17 06:00 Problem List - Problems (1) Hyperthyroidism Code(s): E05.90 - THYROTOXICOSIS, UNSP WITHOUT THYROTOXIC CRISIS OR STORM (2) Multiple sclerosis exacerbation Code(s): G35 - MULTIPLE SCLEROSIS Assessment/Plan Current Active Problems Hyperthyroidism (Acute) Multiple sclerosis exacerbation (Acute) abnormal thyroid function euthyroid sick steroid related suppression tsh Laboratory Results - last 24 hr 10/17/17 10/17/17 10/17/17 10:00 10:00 10:00 POC Glucometer Hemoglobin A1c % 5.3 Free T4 1.08 Free T3 2.6 10/17/17 10/17/17 10/17/17 11:41 17:34 21:39 POC Glucometer 129 224 200 Hemoglobin A1c % Free T4 Free T3 10/18/17 06:24 POC Glucometer 144 Hemoglobin A1c % Free T4 Free T3 Laboratory Tests 10/15/17 10/17/17 06:00 10:00 TSH 0.14 L Free T3 2.6 plan: will need thyroid sonography and repeat tsh free t4 as outpatient given free t4 is normal 1.08 ng /dl thyroid scan and sono should be done as outpatient FOLLOW OUTPATIENT WITH ENDOCRINE
--- NOTE | 2017-10-18 10:11 | DS ---
Physical Examination Vital Signs: Vital Signs Temperature 98.0 F 10/18/17 08:29 Pulse Rate 92 H 10/18/17 08:29 Respiratory Rate 18 10/18/17 08:29 Blood Pressure 148/93 10/18/17 08:29 O2 Sat by Pulse Oximetry (%) 97 10/17/17 21:00 Constitutional: Yes: Mild Distress Eyes: Yes: WNL HENT: Yes: WNL Neck: Yes: WNL Cardiovascular: Yes: WNL Respiratory: Yes: WNL Gastrointestinal: Yes: WNL Renal/: Yes: WNL Musculoskeletal: Yes: Muscle Weakness Extremities: Yes: WNL Edema: No Peripheral Pulses WNL: Yes Integumentary: Yes: WNL Wound/Incision: Yes: Clean/Dry Neurological: Yes: Loss of Sensation, Paresthesia, Tingling ...Motor Strength: LLE, RLE Psychiatric: Yes: Other Labs: CBC, BMP 10/15/17 06:00 10/15/17 06:00 Discharge Summary Reason For Visit: EXACERBATION OF MULTIPLE SCLEROSIS Current Active Problems Hyperthyroidism (Acute) Multiple sclerosis exacerbation (Acute) Procedures: Principal: MRI BRAIN Hospital Course: ADMITTED MS EXACERBATION ON STEROIDS NEUROLOGY WORKUP, TRANSFER PREDNISONE TAPER , SNF Condition: Fair - Instructions Diet, Activity, Other Instructions: REG DIET SEE YOUR PMD OUTPATIENT Disposition: [facility] - Home Medications Comprehensive Discharge Medication List: Ambulatory Orders Oxycodone HCl/Acetaminophen [Percocet 5-325 mg Tablet] 1 tab PO Q4H PRN Gabapentin [Neurontin] 300 mg PO TID 10/14/17 Glatiramer Acetate [Copaxone (Nf) -] 20 mg SQ DAILY 10/14/17 Acetaminophen [Tylenol .Regular Strength -] 325 mg PO Q6H PRN tablet 10/18/17 Docusate Sodium [Colace -] 300 mg PO HS capsule 10/18/17 Insulin (Novolog) [Novolog -] 0 units SQ ACHS units 10/18/17 Oxycodone HCl/Acetaminophen [Percocet 5-325 mg Tablet] 1 combo PO Q6HPO PRN tablet MDD 4 10/18/17 Prednisone [Prednisone 50 MG TABLETS] See Taper PO DAILY #50 tablet 10/18/17 Ranitidine HCl [Zantac] 300 mg PO DAILY #30 tablet 10/18/17
== END 2017-10-18 12:49 | DRG 43 ==
LOC: JER 14:31 → JERBED 18:26 → J5S 10-15 12:07
PROVIDERS: ADMIT Internal Medicine; ATTEND Family Medicine
DX: G35 Multiple sclerosis (principal); F17.210 Nicotine dependence, cigarettes, uncomplicated; F10.10 Alcohol abuse, uncomplicated; F11.10 Opioid abuse, uncomplicated; D72.829 Elevated white blood cell count, unspecified; Z99.3 Dependence on wheelchair; E05.90 Thyrotoxicosis, unspecified without thyrotoxic crisis or storm; R20.0 Anesthesia of skin
CPT/HCPCS: 36415; 70450-TC; 70553-TC; 71045-TC-FY; 80048; 80053; 80307; 81003; 82550; 82607; 82746; 82962; 83036; 83735; 84100; 84439; 84443; 84481; 84484; 85025; 85027; 93005; 93010; 97116-GP; 97161-GP; 99284-25; J0131; J7030

== ENCOUNTER 2017-10-31 20:12 | Emergency (ER) | payer OTHER ==
[2017-10-31 20:17] VITALS: BP 122/79; PULSE 120; TEMP 98.4; BMI 33.2
--- NOTE | 2017-10-31 20:27 | PDOC ---
Rapid Medical Evaluation Chief Complaint: Pain, Acute Time Seen by Provider: 10/31/17 20:15 Medical Evaluation: Allergies Allergy/AdvReac Type Severity Reaction Status Date / Time No Known Drug Allergies Allergy Unknown Verified 10/14/17 14:55 LIVER Allergy Hives Uncoded 10/14/17 14:55 10/31/17 20:15 C: "i am having a MS flare up, im having a lot of pain every where since last night." reports SOB, chestpain. O: Patient alert ox3 A: acute pain P; patient to the ER for further management of care Neurology: Dr. Gann
--- NOTE | 2017-10-31 23:09 | PDOC ---
History of Present Illness - General Chief Complaint: Pain, Acute Stated Complaint: FLAREUP Time Seen by Provider: 10/31/17 20:15 History Source: Patient - History of Present Illness Initial Comments: 10/31/17 22:56 52-year-old male complaining of generalized body aches and leg weakness worsening over the last day. Patient reports that he is having an MS flare up. Patient also reports that he has been taking his regular Percocet and morphine with no pain relief. Past medical history of substance abuse, multiple sclerosis currently on prednisone Past History - Past Medical History Allergies/Adverse Reactions: Allergies Allergy/AdvReac Type Severity Reaction Status Date / Time No Known Drug Allergies Allergy Unknown Verified 10/14/17 14:55 LIVER Allergy Hives Uncoded 10/14/17 14:55 Home Medications: Ambulatory Orders Oxycodone HCl/Acetaminophen [Percocet 5-325 mg Tablet] 1 tab PO Q4H PRN Gabapentin [Neurontin] 300 mg PO TID 10/14/17 Glatiramer Acetate [Copaxone (Nf) -] 20 mg SQ DAILY 10/14/17 Acetaminophen [Tylenol .Regular Strength -] 325 mg PO Q6H PRN tablet 10/18/17 Docusate Sodium [Colace -] 300 mg PO HS capsule 10/18/17 Insulin (Novolog) [Novolog -] 0 units SQ ACHS units 10/18/17 Oxycodone HCl/Acetaminophen [Percocet 5-325 mg Tablet] 1 combo PO Q6HPO PRN tablet MDD 4 10/18/17 Prednisone [Prednisone 50 MG TABLETS] See Taper PO DAILY #50 tablet 10/18/17 Ranitidine HCl [Zantac] 300 mg PO DAILY #30 tablet 10/18/17 Ibuprofen 600 mg PO QID PRN #10 tablet 11/01/17 Anemia: No Asthma: No Cancer: No Cardiac Disorders: No CVA: No COPD: No CHF: No Dementia: No Diabetes: No GI Disorders: No Disorders: No HTN: No Hypercholesterolemia: No Kidney Stones: No Liver Disease: No Seizures: No Thyroid Disease: No - Surgical History Abdominal Surgery: No Appendectomy: No Cardiac Surgery: No Cholecystectomy: No Lung Surgery: No Neurologic Surgery: No Orthopedic Surgery: Yes (ARTHROSCOPIC SX R KNEE 09/2008 IN [facility]) - Reproductive History Testicular Surgery: No - Suicide/Smoking/Psychosocial Hx Smoking History: Never smoked Have you smoked in the past 12 months: No Number of Cigarettes Smoked Daily: 1 Information on smoking cessation initiated: No 'Breaking Loose' booklet given: 05/04/17 Hx Alcohol Use: No Drug/Substance Use Hx: No Substance Use Type: Alcohol, Opiates, Prescribed Hx Substance Use Treatment: Yes ([facility]) Review of Systems - Review of Systems Able to Perform ROS?: Yes Is the patient limited Armenian proficient: No Constitutional: No: Symptoms Reported, See HPI, Chills, Diaphoresis, Fever, Loss of Appetite, Malaise, Night Sweats, Weakness, Weight Stable, Unintentional Wgt. Loss, Unexplained wgt Loss, Other Neurological: Yes: Weakness, Other (generalized body aches) *Physical Exam - Vital Signs Last Vital Signs Temp Pulse Resp BP Pulse Ox 98.4 F 120 H 19 122/79 98 10/31/17 20:15 10/31/17 20:15 10/31/17 20:15 10/31/17 20:15 10/31/17 20:15 - Physical Exam General Appearance: Yes: Appropriately Dressed Respiratory/Chest: positive: Lungs Clear, Normal Breath Sounds Neurologic: positive: tuck pointer II-XII NML intact, Fully Oriented, Alert, Normal Mood/ Affect, Motor Strength 5/5, Finger to Nose (intact). negative: Normal Response , Abnormal Cranial NS, Respond to painful stimul, Responsive, EOM Palsy, Facial Droop, Numbness, Sensory Deficit, Confused, Disoriented, Depressed Affect, Babinski, Other Heart Score/ECG Review - History History: Slightly suspicious - Electrocardiogram EKG: Normal - Age Age: 45-65 - Risk Factors Based on the list above the patient has:: No risk factors known - ECG Intrepretation Rhythm: Regular Rhythm Comment:: 11/01/17 03:49 NSR: 98bpm ED Treatment Course - LABORATORY CBC & Chemistry Diagram: 10/31/17 22:43 10/31/17 22:43 - RADIOLOGY Radiology Studies Ordered: Category Date Time Status HEAD CT WITHOUT CONTRAST [CT] Stat CT Scan 10/31/17 22:53 Ordered Medical Decision Making - Medical Decision Making 10/31/17 23:09 A: Generalized body aches P: cbc cmp ekg ct head 11/01/17 03:35 patient given toradol. advised to follow up with neurology and pain management. 11/01/17 03:49 *DC/Admit/Observation/Transfer Diagnosis at time of Disposition: multiple sclerosis, Chronic generalized pain - Discharge Dispostion Disposition: HOME - Prescriptions Prescriptions: Ibuprofen 600 mg PO QID PRN #10 tablet PRN Reason: Pain - Referrals Referrals: Mohsen Chapman [Primary Care Provider] - - Patient Instructions Printed Discharge Instructions: DI for Multiple Sclerosis Additional Instructions: take your pain medication as prescribed. please follow up with your neurologist as soon as possible. return to the ER if symptoms worsen. - Post Discharge Activity
--- NOTE | 2017-10-31 23:47 | PDOC ---
*Physical Exam - Vital Signs Last Vital Signs Temp Pulse Resp BP Pulse Ox 98.4 F 120 H 19 122/79 98 10/31/17 20:15 10/31/17 20:15 10/31/17 20:15 10/31/17 20:15 10/31/17 20:15 ED Treatment Course - LABORATORY CBC & Chemistry Diagram: 10/31/17 22:43 10/31/17 22:43 Medical Decision Making - Medical Decision Making 10/31/17 23:47 agree with care from ALICIA Hanley *DC/Admit/Observation/Transfer Diagnosis at time of Disposition: multiple sclerosis, Chronic generalized pain - Discharge Dispostion Disposition: HOME - Prescriptions Prescriptions: Ibuprofen 600 mg PO QID PRN #10 tablet PRN Reason: Pain - Referrals Referrals: Mohsen Chapman [Primary Care Provider] - - Patient Instructions Printed Discharge Instructions: DI for Multiple Sclerosis Additional Instructions: take your pain medication as prescribed. please follow up with your neurologist as soon as possible. return to the ER if symptoms worsen. - Post Discharge Activity
[2017-11-01 00:12] LABS: URINE APPEARANCE SLCLOUDY; URINE BILIRUBIN NEGATIVE (<2.0 mg/dL); URINE BLOOD NEGATIVE (NEGATIVE); URINE COLOR YELLOW; URINE GLUCOSE (UA) NEGATIVE (NEGATIVE); URINE KETONE NEGATIVE (NEGATIVE); URINE LEUK ESTERASE NEGATIVE (NEGATIVE); URINE NITRITE NEGATIVE (NEGATIVE); URINE PROTEIN NEGATIVE (NEGATIVE)
[2017-11-01 00:21] LABS: COCAINE, UR NEGATIVE ng/ml (CUTOFF=300); OPIATES, URI NEGATIVE ng/ml (CUTOFF=300); URINE AMPHETAMINES NEGATIVE ng/ml (CUTOFF=500); URINE BARBITURATES NEGATIVE ng/ml (CUTOFF=200); URINE BENZODIAZEPINES NEGATIVE ng/ml (CUTOFF=200)
[2017-11-01 00:22] LABS: METHADONE, UR NEGATIVE ng/ml (CUTOFF=300); PHENCYCLIDINE,URINE NEGATIVE ng/ml (CUTOFF=25)
[2017-11-01 00:36] LABS: BASO % 0.8 % (0-2.0); EOS % 1.2 % (0-4.5); HEMATOCRIT 40.5 % (35.4-49); HEMOGLOBIN 13.6 GM/dL (11.7-16.9); LYMPH % 22.3 % (8-40); MCH 30.7 pg (25.7-33.7); MCHC 33.6 g/dl (32.0-35.9); MEAN CELL VOLUME 91.4 fl (80-96); MEAN PLT VOLUME 7.4 fl (7.5-11.1); MONO % 8.6 % (3.8-10.2); NEUT % 67.1 % (42.8-82.8); PLATELET COUNT 229 K/MM3 (134-434); RBC 4.43 M/mm3 (4.00-5.60); RDW 18.3 % (11.9-15.9); WHITE BLOOD COUNT 10.7 K/mm3 (4.0-10.0)
[2017-11-01 00:59] LABS: ALBUMIN 3.6 g/dl (3.4-5.0); ANION GAP 11 (8-16); BLOOD UREA NITROGEN 14 mg/dL (7-18); CALCIUM 8.8 mg/dL (8.5-10.1); CHLORIDE 105 mmol/L (98-107); CO2 28 mmol/L (21-32); CREATININE 0.9 mg/dL (0.7-1.3); GLUCOSE,RANDOM 85 mg/dL (74-106); POTASSIUM 4.2 mmol/L (3.5-5.1); SODIUM 144 mmol/L (136-145); TOT PROT 7.7 g/dl (6.4-8.2)
[2017-11-01 01:00] LABS: ALK PHOS 64 U/L (45-117); BILIRUBIN,TOTAL 0.7 mg/dL (0.2-1.0); SGOT/AST 30 U/L (15-37); SGPT/ALT 97 U/L (12-78)
[2017-11-01] MEDS ORDERED: morphine CARPU-JECT 4 MG/1 ML DISP.SYRIN IVPUSH ONE (01:25)
[2017-11-01] MEDS ORDERED: morphine SULFATE 4 MG/ML VIAL ONE (01:31)
[2017-11-01] MEDS ORDERED: KETOROLAC TROMETHAMINE 30 MG/1 ML VIAL IVPUSH ONE (02:08)
[2017-11-01] MEDS ORDERED: KETOROLAC TROMETHAMINE 30 MG/1 ML VIAL ONE (03:28)
--- NOTE | 2017-11-01 11:28 | EKG ---
Test Reason : Blood Pressure : / mmHG Vent. Rate : 098 BPM Atrial Rate : 098 BPM P-R Int : 146 ms QRS Dur : 088 ms QT Int : 352 ms P-R-T Axes : 060 057 027 degrees QTc Int : 449 ms NORMAL SINUS RHYTHM POSSIBLE LEFT ATRIAL ENLARGEMENT BORDERLINE ECG WHEN COMPARED WITH ECG OF 14-OCT-2017 16:22, NO SIGNIFICANT CHANGE WAS FOUND Confirmed by BRIANNA COOPER MD ([id number]) on 11/01/2017 11:27:52 AM Referred By: Confirmed By:BRIANNA COOPER MD
== END 2017-11-01 04:08 | disposition home or self-care (01) ==
LOC: JER 20:12
PROC: 3E0333Z Introduction of Anti-inflammatory into Peripheral Vein, Percutaneous Approach (ICD-10-PCS; principal; 2017-10-31)
PROC: 3E033NZ Introduction of Analgesics, Hypnotics, Sedatives into Peripheral Vein, Percutaneous Approach (ICD-10-PCS; 2017-10-31)
DX: G35 Multiple sclerosis (principal); G89.29 Other chronic pain; Z72.0 Tobacco use
CPT/HCPCS: 36415; 70450-TC; 80053; 80307; 81003; 85025; 93005; 93010; 99282-25

== ENCOUNTER 2018-08-29 11:24 | Inpatient (IN) | payer OTHER ==
--- NOTE | 2018-08-29 12:05 | PDOC ---
History of Present Illness - General Chief Complaint: Pain Stated Complaint: MS EXACERBATION Time Seen by Provider: 08/29/18 12:04 History Source: Patient Exam Limitations: No Limitations - History of Present Illness Initial Comments: Pt is a 52 yo M, with PMH of MS, polysubstance abuse (alcohol, cocaine, opioid, last detox 2016), bipolar, and Factor V Leiden with PE (on Eliquis), who is presenting with complaints of L-sided numbness and weakness in his face and arms , blurry vision, b/l lower leg weakness, red rash on his extremities and stomach , and swelling of his eyes x2 days. Pt states he fell in his home "after his legs gave out" 2 days ago. He has also noticed a rash over his R stomach for the past 2 days, which itches. Pt saw his PCP, Dr. Chapman, today, who sent him to the ER for further work-up and initiation of steroids for MS flare-up. Pt denies any fevers/chills, headache, syncope, chest pain, palpitations, cough, nausea/vomiting, abdominal pain, urinary symptoms, diarrhea/constipation, or leg swelling. PCP: Dr. Chapman Neuro: Dr. Ortega ([facility]) Social: Pt denies any cigarette, alcohol, or drug use. Pt does take oxycodone at home for pain. Pt denies any recent travel or sick contacts. Surgical: no relevant history. Family: no relevant history. 08/29/18 13:01 Past History - Travel Traveled outside of the country in the last 30 days: No Close contact w/someone who was outside of country & ill: No - Past Medical History Allergies/Adverse Reactions: Allergies Allergy/AdvReac Type Severity Reaction Status Date / Time No Known Drug Allergies Allergy Unknown Verified 08/29/18 11:27 LIVER Allergy Hives Uncoded 08/29/18 11:27 Home Medications: Ambulatory Orders Gabapentin [Neurontin] 300 mg PO TID 10/14/17 Glatiramer Acetate [Copaxone (Nf) -] 20 mg SQ ASDIR 10/14/17 Acetaminophen [Tylenol .Regular Strength -] 325 mg PO Q6H PRN tablet 10/18/17 Ibuprofen 600 mg PO QID PRN #10 tablet 11/01/17 Apixaban [Eliquis -] 5 mg PO BID 08/29/18 Oxycodone HCl 10 mg PO QID PRN 08/29/18 Anemia: No Asthma: No Cancer: No Cardiac Disorders: No CVA: No COPD: No CHF: No Dementia: No Diabetes: No GI Disorders: No Disorders: No HTN: No Hypercholesterolemia: No Kidney Stones: No Liver Disease: No Seizures: No Thyroid Disease: No Other medical history: MS - Surgical History Abdominal Surgery: No Appendectomy: No Cardiac Surgery: No Cholecystectomy: No Lung Surgery: No Neurologic Surgery: No Orthopedic Surgery: Yes (ARTHROSCOPIC SX R KNEE 09/2008 IN [facility]) - Reproductive History Testicular Surgery: No - Suicide/Smoking/Psychosocial Hx Smoking History: Unknown if ever smoked Have you smoked in the past 12 months: No Number of Cigarettes Smoked Daily: 1 'Breaking Loose' booklet given: 05/04/17 Hx Alcohol Use: No Drug/Substance Use Hx: No Substance Use Type: Alcohol, Opiates, Prescribed Hx Substance Use Treatment: Yes ([facility]) Review of Systems - Review of Systems Able to Perform ROS?: Yes Is the patient limited Palauan proficient: No Constitutional: Yes: Weakness, Weight Stable. No: Chills, Diaphoresis, Fever, Loss of Appetite, Malaise HEENTM: Yes: Blurred Vision. No: Recent change in vision, Double Vision, Nose Congestion, Throat Pain, Throat Swelling Respiratory: No: Cough, Orthopnea, Shortness of Breath, Productive cough Cardiac (ROS): No: Chest Pain, Edema, Irregular Heart Rate, Lightheadedness, Palpitations, Syncope, Chest Tightness ABD/GI: No: Constipated, Diarrhea, Nausea, Poor Appetite, Poor Fluid Intake, Vomiting : No: Burning, Dysuria, Pain, Urgency Musculoskeletal: Yes: See HPI, Muscle Pain, Muscle Weakness. No: Back Pain, Joint Pain, Joint Swelling, Joint Stiffness Integumentary: No: Rash Neurological: Yes: See HPI, Numbness, Paresthesia, Pre-Existing Deficit, Weakness. No: Headache, Seizure, Unsteady Gait, Ataxia, Dizziness Psychiatric: No: Sleep Pattern Change, Change in Appetite Endocrine: No: Increased Urine, Change in Weight Hematologic/Lymphatic: Yes: See HPI, Blood Clots (PE, Factor V Leiden - on anticoagulation). No: Anemia, Easy Bleeding, Easy Bruising All Other Systems: Reviewed and Negative *Physical Exam - Vital Signs Last Vital Signs Temp Pulse Resp BP Pulse Ox 98.2 F 112 H 18 168/70 97 08/29/18 11:30 08/29/18 11:30 08/29/18 11:30 08/29/18 11:30 08/29/18 11:30 - Physical Exam Comments: Pt afebrile, BP and HR improved from triage, HR in 80s, O2 98% on RA BP 156/99. Pt in NAD, normal body habitus. PE showed pt alert and oriented. 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 Eyes PERRLA, EOMI,mild erythema around eyes b/l and eyes appear mildly edematous. Oropharynx without erythema or exudates, no LAD b/l. Healing vesicular lesions over lower lip. No nasal congestion, hearing intact. Clear heart sounds, S1/S2, no JVD, b/l pedal edema, or heart murmur. Clear lung sounds, no respiratory distress, wheezes, crackles, or accessory muscle use. No abdominal or CVA tenderness to palpation, no rebound , no guarding. Erythematous patch over R abdomen with mild induration and blanching erythema. Abdomen soft, non-distended, and with normoactive bowel sounds. Skin with erythematous rash over extensor surfaces of forearms and over face. 08/29/18 14:51 Moderate Sedation - Procedure Monitoring Vital Signs: Procedure Monitoring Vital Signs Temperature 98.2 F 08/29/18 11:30 Pulse Rate 112 H 08/29/18 11:30 Respiratory Rate 18 08/29/18 11:30 Blood Pressure 168/70 08/29/18 11:30 O2 Sat by Pulse Oximetry (%) 97 08/29/18 11:30 ED Treatment Course - LABORATORY CBC & Chemistry Diagram: 08/29/18 12:30 08/29/18 12:30 Medical Decision Making - Medical Decision Making Pt was seen at bedside, also will be seen by attending Dr. Ochoa. Pt presenting with complaints of L-sided numbness and weakness in his face and arms, blurry vision, b/l lower leg weakness, red rash on his extremities and stomach, and swelling of his eyes x2 days. Pt states he fell in his home "after his legs gave out" 2 days ago. He has also noticed a rash over his R stomach for the past 2 days, which itches. Pt saw his PCP, Dr. Chapman, today, who sent him to the ER for further work-up and initiation of steroids for MS flare-up. Pt denies any fevers/chills, headache, syncope, chest pain, palpitations, cough, nausea/vomiting, abdominal pain, urinary symptoms, diarrhea/constipation, or leg swelling. Pt afebrile, BP and HR improved from triage, HR in 80s, O2 98% on RA BP 156/99. Pt in NAD, normal body habitus. PE showed pt alert and oriented. 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 Eyes PERRLA, EOMI,mild erythema around eyes b/l and eyes appear mildly edematous. Oropharynx without erythema or exudates, no LAD b/l. Healing vesicular lesions over lower lip. No nasal congestion, hearing intact. Clear heart sounds, S1/S2, no JVD, b/l pedal edema, or heart murmur. Clear lung sounds, no respiratory distress, wheezes, crackles, or accessory muscle use. No abdominal or CVA tenderness to palpation, no rebound , no guarding. Erythematous patch over R abdomen with mild induration and blanching erythema. Abdomen soft, non-distended, and with normoactive bowel sounds. Skin with erythematous rash over extensor surfaces of forearms and over face. Considering MS flare-up vs infection (cellulitis, influenza) vs CVA vs bleed ( recent fall on eliquis). Ordered work-up including CBC, CMP, cardiac profile, coags, rapid influenza, ECG , chest x-ray, non-contrast head CT. Provided 1 g ofirmev for improvement of pain control. Pt not in any acute distress. Will continue to reassess pt and monitor for symptomatic improvement. 08/29/18 12:[address] Chapman to confirm dose of solumedrol and further recommendations for work-up. 08/29/18 12:[address] scan and chest x-ray. CBC WNL. No increased WBCs. 08/29/18 13:04 Chest x-ray shows no obvious infiltrate or cardiomegaly. Head CT: no acute changes. Influenza negative. INR 1.19 08/29/18 13:34 CMP WNL UA negative. 08/29/18 14:[address] Chapman's team, who stated pt was referred for neurology today. Pt has also not been prescribed any consistent oxycodone or perocet for outpatient use -- provided pt IV tylenol. Providing 1 g ancef for cellulitis on abdomen. Spoke with Dr. Guillen (admitting for Dr. Chapman) who accepted the pt. Placed consult orders for Dr. Castillo (Neurology) and Dr. Ocasio (ID). Pt resting comfortably. 08/29/18 14:45 *DC/Admit/Observation/Transfer Diagnosis at time of Disposition: multiple sclerosis, Multiple sclerosis exacerbation, Factor V Leiden Cellulitis Qualifiers: Site of cellulitis: other site Qualified Code(s): L03.818 - Cellulitis of other sites - Discharge Dispostion Condition at time of disposition: Stable Decision to Admit order: Yes - Referrals - Patient Instructions - Post Discharge Activity
--- NOTE | 2018-08-29 12:30 | PDOC ---
Attending Attestation - Resident Resident Name: AlethaLinette - ED Attending Attestation I have performed the following: I have examined & evaluated the patient, The case was reviewed & discussed with the resident, I agree w/resident's findings & plan, Exceptions are as noted - HPI HPI: 08/29/18 13:51 Mr Wilkinson presents to the ER with a complaint of MS flair He has a h/o polysubstance abuse, bipolar d/o, factor V Leiden, h/o PE The patient reports a h/o MS, not currently taking any immunosuppressant medications Pt presents to the ER from his PMDs office stating that his PMD told him to come to the ER for pain control and due to an MS flair The patient reports L-sided numbness and weakness in his face and arms, blurry vision, b/l lower leg weakness, red rash on his extremities and stomach, and swelling of his eyes x2 days No fevers or chills He is s/p a fall due to leg weakness with head trauma. - Physicial Exam PE: 08/29/18 12:36 GENERAL: The patient is in no acute distress. HEAD: Normal with no signs of trauma. EYES: PERRLA, EOMI, sclera anicteric, conjunctiva clear. ENT: Moist mucous membranes. NECK: Normal range of motion, supple LUNGS: Breath sounds equal, clear to auscultation bilaterally. HEART:Regular rate and rhythm, normal S1 and S2 without murmur, rub or gallop. ABDOMEN: Soft, nontender EXTREMITIES: Normal range of motion, no edema. NEUROLOGICAL: Cranial nerves II through XII grossly intact. Normal speech. No focal neurological deficits. SKIN: erythematous lesion noted on abdomen, no blistering, no drainage - Medical Decision Making 08/29/18 13:57 call placed to pt PMD He was NOT told to come to the ER He has NOT seen the [facility] Neurologist Will do: Labs CT head contact Neuro for recommendations Abx for cellulitis Re assess EKG - Twelve-lead EKG was performed and reviewed by me. There is normal sinus rhythm with a normal rate. The axis is normal. The intervals are normal. There are no ST or T wave abnormalities. Impression: Normal twelve-lead EKG 08/29/18 13:58 Laboratory Tests 08/29/18 08/29/18 08/29/18 12:30 12:30 12:30 WBC 6.0 Hgb 12.9 Hct 38.4 Plt Count 303 D INR 1.19 H BUN 8 Creatinine 0.9 Creatine Kinase 82 Troponin I < 0.02 Influenza A (Rapid) Influenza B (Rapid) 08/29/18 12:45 WBC Hgb Hct Plt Count INR BUN Creatinine Creatine Kinase Troponin I Influenza A (Rapid) Negative Influenza B (Rapid) Negative CT Head - Will admit
[2018-08-29] MEDS ORDERED: ACETAMINOPHEN 1000 MG/100 ML VIAL (NON FORMULARY) IVPB ONE (12:31)
[2018-08-29] MEDS ORDERED: ACETAMINOPHEN INJECTION 100 ML IVPB ONE (12:34)
[2018-08-29 12:38] LABS: BASO % 0.3 % (0-2.0); EOS % 2.6 % (0-4.5); HEMATOCRIT 38.4 % (35.4-49); HEMOGLOBIN 12.9 GM/dL (11.7-16.9); LYMPH % 22.1 % (8-40); MCH 28.8 pg (25.7-33.7); MCHC 33.6 g/dl (32.0-35.9); MEAN CELL VOLUME 85.8 fl (80-96); MEAN PLT VOLUME 7.5 fl (7.5-11.1); MONO % 8.5 % (3.8-10.2); NEUT % 66.5 % (42.8-82.8); PLATELET COUNT 303 K/MM3 (134-434); RBC 4.47 M/mm3 (4.00-5.60); RDW 16.9 % (11.9-15.9)
[2018-08-29 12:49] LABS: INR 1.19 (0.83-1.09); PROTHROMBIN TIME (PATIENT) 14.1 SEC (9.7-13.0)
[2018-08-29 13:43] LABS: BLOOD UREA NITROGEN 8 mg/dL (7-18); CREATININE 0.9 mg/dL (0.55-1.3); GLUCOSE,RANDOM 83 mg/dL (74-106)
[2018-08-29 13:44] LABS: ALBUMIN 3.4 g/dl (3.4-5.0); ALK PHOS 71 U/L (45-117); ANION GAP 7 MMOL/L (8-16); BILIRUBIN,TOTAL 0.3 mg/dL (0.2-1); CALCIUM 8.9 mg/dL (8.5-10.1); CHLORIDE 108 mmol/L (98-107); CO2 28 mmol/L (21-32); POTASSIUM 3.8 mmol/L (3.5-5.1); SGOT/AST 31 U/L (15-37); SGPT/ALT 45 U/L (13-61); SODIUM 142 mmol/L (136-145); TOT PROT 7.5 g/dl (6.4-8.2)
[2018-08-29 14:07] LABS: URINE APPEARANCE CLEAR; URINE BILIRUBIN NEGATIVE (<2.0 mg/dL); URINE COLOR LTYELLOW; URINE GLUCOSE (UA) NEGATIVE (NEGATIVE); URINE KETONE NEGATIVE (NEGATIVE); URINE LEUK ESTERASE NEGATIVE (NEGATIVE); URINE NITRITE NEGATIVE (NEGATIVE); URINE PROTEIN NEGATIVE (NEGATIVE); URINE UROBILINOGEN NEGATIVE mg/dL (0.2-1.0)
[2018-08-29] MEDS ORDERED: CEFAZOLIN 1 GM in DEXTROSE 5%-WATER - 50 ML IVPB ONE (14:34)
[2018-08-29] MEDS ORDERED: CEFAZOLIN 1 GM/D5W 1 GM/50 ML BAG ONE (14:51)
[2018-08-29] MEDS ORDERED: oxyCODONE HCL 5 MG TABLET PO PRN ×2 (15:38→15:57)
--- NOTE | 2018-08-29 15:38 | HP ---
Admitting History and Physical - Primary Care Physician PCP: Mohsen Chapman - Admission Chief Complaint: sent in by pmd for weakness and fall History of Present Illness: Pt is a 52 yo M, with PMH of MS, polysubstance abuse (alcohol, cocaine, opioid, last detox 2016), bipolar, and Factor V Leiden with PE (on Eliquis), who is presenting with complaints of L-sided numbness and weakness in his face and arms , blurry vision, b/l lower leg weakness, red rash on his extremities and stomach , and swelling of his eyes x2 days. Pt states he fell in his home "after his legs gave out" 2 days ago. He has also noticed a rash over his R stomach for the past 2 days, which itches. Pt saw his PCP, Dr. Chapman, today, who sent him to the ER for further work-up and initiation of steroids for MS flare-up. Pt denies any fevers/chills, headache, syncope, chest pain, palpitations, cough, nausea/vomiting, abdominal pain, urinary symptoms, diarrhea/constipation, or leg swelling. in er got tylenol and cefazolin History Source: Patient - Past Medical History Additional Past Medical History: MS factor 5 deficiency - Smoking History Smoking history: Unknown if ever smoked Have you smoked in the past 12 months: No Aproximately how many cigarettes per day: 1 - Alcohol/Substance Use Hx Alcohol Use: No Home Medications - Allergies Allergies/Adverse Reactions: Allergies Allergy/AdvReac Type Severity Reaction Status Date / Time No Known Drug Allergies Allergy Unknown Verified 08/29/18 11:27 LIVER Allergy Hives Uncoded 08/29/18 11:27 - Home Medications Home Medications: Ambulatory Orders Gabapentin [Neurontin] 300 mg PO TID 10/14/17 Glatiramer Acetate [Copaxone (Nf) -] 20 mg SQ ASDIR 10/14/17 Acetaminophen [Tylenol .Regular Strength -] 325 mg PO Q6H PRN tablet 10/18/17 Ibuprofen 600 mg PO QID PRN #10 tablet 11/01/17 Apixaban [Eliquis -] 5 mg PO BID 08/29/18 Oxycodone HCl 10 mg PO QID PRN 08/29/18 Family Disease History - Family Disease History Family Disease History: Diabetes: Mother, Heart Disease: Sister Review of Systems - Review of Systems Constitutional: reports: Weakness Musculoskeletal: reports: Muscle Weakness Integumentary: reports: Erythema Physical Examination Vital Signs: Vital Signs Temperature 98.2 F 08/29/18 11:30 Pulse Rate 87 08/29/18 12:48 Respiratory Rate 16 08/29/18 12:48 Blood Pressure 141/86 08/29/18 12:48 O2 Sat by Pulse Oximetry (%) 97 08/29/18 12:55 Constitutional: Yes: Calm Cardiovascular: Yes: Regular Rate and Rhythm, S1, S2 Respiratory: Yes: CTA Bilaterally Gastrointestinal: Yes: Normal Bowel Sounds, Soft Edema: No Integumentary: Yes: Erythema (on abdominal wall right side firm to touch) Labs: CBC, BMP 08/29/18 12:30 08/29/18 12:30 Problem List - Problems (1) Multiple sclerosis exacerbation Assessment/Plan: neurology evaluation for possible iv solumedrol MRI with/without contrast PT eval dvt ppx Code(s): G35 - MULTIPLE SCLEROSIS (2) Cellulitis Assessment/Plan: iv abx ID eval ultrasound of abdomen r/o abscess hematoma Code(s): L03.90 - CELLULITIS, UNSPECIFIED Qualifiers: Site of cellulitis: other site Qualified Code(s): L03.818 - Cellulitis of other sites (3) Factor V Leiden Assessment/Plan: eliquis Code(s): D68.51 - ACTIVATED PROTEIN C RESISTANCE Assessment/Plan dvt ppx PT
[2018-08-29] MEDS ORDERED: ACETAMINOPHEN 325 MG TABLET (FP) PO PRN (15:57)
[2018-08-29] MEDS ORDERED: methylPREDNISolone NA SUCC 1000 MG/8 ML VIAL IVPB ONE (16:26)
--- NOTE | 2018-08-29 19:21 | PN ---
Progress Note (short form) - Note Progress Note: ID consult dictated imp/reccd 52 yo man with MS admitted with worsening weakness, s/p fall at home he reports an isolated fever 2 days ago injects copaxone 40 mg three times a week fo his MS- dose just changed 2 months ago notes dry eyes itchy wrists and antecubital area of both arms also swelling of left abdomen at injection site with erythema +fever blisters no mouth sores no cough no diarrhea no rash on upper chest, back, face no further fevers lacy erythema surrounding the injection site- not fluctuant, firm and indurated possible cellulitis obtain blood cultures ancef for possible cellulitis at the injection site, f/u ultrasound valtrex for oral HSV rash- ?copaxone, ?viral neurology eval of MS d/w dr arellano, will hold steroids until infectius workup is complete
[2018-08-29] MEDS: CEFAZOLIN 1 GM/D5W 1 GM/50 ML BAG IVPB SCH (19:51)
--- NOTE | 2018-08-29 20:05 | CONS ---
DATE OF CONSULTATION: DATE OF DICTATION: 08/29/2018 HISTORY OF PRESENT ILLNESS: This is a 52-year-old man with a history of multiple sclerosis. He is on Copaxone. Recently the dose was increased from 20 mg to 40 mg, about 2 months ago. He takes it 3 times a week. He injects on the sides of his abdomen. He presents with complaints of worsening weakness, some blurry vision and is concerned that his MS is acting up. He notes that he has erythema at the injection site on the right side of his abdomen as well as having an itchy rash on the wrists of both his arms and his antecubital fossa. He notes 2 days ago he had an isolated fever. He does not know how high. After which he broke out with fever blisters around his mouth. He was given Tylenol and cefazolin in the ER. PAST MEDICAL HISTORY: Notable for MS, factor V deficiency. He had a PE in the past. He has a history of polysubstance use in the past. He has bipolar disorder. He is followed by Dr. Chapman as an outpatient. ALLERGIES: No known drug allergies. MEDICATIONS: At home include Neurontin, Copaxone, Tylenol, ibuprofen, apixaban, and oxycodone. FAMILY HISTORY: Notable for diabetes. SOCIAL HISTORY: He lives with his daughter. He is an occasional cigarette smoker. REVIEW OF SYSTEMS: He denies any nausea, vomiting. He denies any headache. He denies any dysuria. He has not had any sick contacts. He has no cough or shortness of breath. PHYSICAL EXAMINATION: Vital Signs: His temperature max is 97.9, pulse is 92, blood pressure 144/98, respiratory rate 18. He is saturating 95%. General: He is a well-appearing man, in no acute distress. HEENT: He is normocephalic. His eyes are anicteric. Skin is very dry and scaly. He complains of itching around his eyes. He has no swelling of his eyes. He has no oral lesions. He has some blisters on his upper lip. Neck: Supple. Lungs: Clear to auscultation. Heart: Regular rate and rhythm. Abdomen: Soft. On the right side he has a lacy rash around the site where he has an injection site. He said earlier today it was erythematous and the area is indurated, but not fluctuant. Skin: He has no rash on his back. He has no rash on his legs. He has no rash on his face. LABORATORY: White count is 6, hemoglobin 12.9, platelets of 303. INR is 1, BUN is 8, creatinine 0.9. LFTs are normal. Urinalysis is negative. Influenza screen is negative. IN SUMMARY: This is a 52-year-old man with possible cellulitis of his abdomen. I would obtain blood cultures. I would continue the Ancef for possible cellulitis. 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 The rash, I suspect, is potentially to Copaxone versus a viral etiology. Neurology evaluation of MS. I discussed the case with Dr. Castillo. We will hold steroids for now until further workup is complete. BANDAR AMBROSIO M.D. DILIP/[id number]
[2018-08-29 20:23] VITALS: BMI 29.1
[2018-08-29] MEDS ORDERED: methylPREDNISolone NA SUCC 125 MG/2 ML VIAL IVPB SCH (22:00)
[2018-08-29] MEDS: valACYclovir HCL 500 MG TABLET (FP) PO SCH (22:45)
[2018-08-29] MEDS: GABAPENTIN 300 MG CAPSULE (FP) PO SCH (22:45)
[2018-08-29] MEDS: DOCUSATE SODIUM 100 MG CAPSULE (FP) PO SCH (23:14)
[2018-08-29] MEDS: HEPARIN NA (PORCINE) 5,000 UNITS/ML 1ML VIAL SQ SCH (23:14)
[2018-08-29] MEDS: MORPHINE SULFATE 2 MG/ML VIAL IVPUSH PRN (23:26)
[2018-08-30] MEDS: CEFAZOLIN 1 GM/D5W 1 GM/50 ML BAG IVPB SCH ×3 (01:31→18:55)
[2018-08-30] MEDS: GABAPENTIN 300 MG CAPSULE (FP) PO SCH ×3 (05:17→22:31)
[2018-08-30] MEDS: MORPHINE SULFATE 2 MG/ML VIAL IVPUSH PRN (05:17)
[2018-08-30 07:45] LABS: INR 1.01 (0.83-1.09); PROTHROMBIN TIME (PATIENT) 11.9 SEC (9.7-13.0)
[2018-08-30 07:46] LABS: HEMATOCRIT 36.6 % (35.4-49); HEMOGLOBIN 12.2 GM/dL (11.7-16.9); MCH 28.6 pg (25.7-33.7); MCHC 33.2 g/dl (32.0-35.9); MEAN CELL VOLUME 86.1 fl (80-96); MEAN PLT VOLUME 7.5 fl (7.5-11.1); PLATELET COUNT 317 K/MM3 (134-434); RBC 4.25 M/mm3 (4.00-5.60); RDW 17.3 % (11.9-15.9); WHITE BLOOD COUNT 6.6 K/mm3 (4.0-10.0)
[2018-08-30 07:48] LABS: ACTIVATED PTT 31.1 SECONDS (25.2-36.5)
[2018-08-30 08:37] LABS: ALBUMIN 3.4 g/dl (3.4-5.0); ALK PHOS 69 U/L (45-117); ANION GAP 3 MMOL/L (8-16); BILIRUBIN,TOTAL 0.5 mg/dL (0.2-1); BLOOD UREA NITROGEN 10 mg/dL (7-18); CALCIUM 8.8 mg/dL (8.5-10.1); CHLORIDE 109 mmol/L (98-107); CO2 26 mmol/L (21-32); CREATININE 0.8 mg/dL (0.55-1.3); GLUCOSE,RANDOM 84 mg/dL (74-106); PHOSPHOROUS 3.4 mg/dL (2.5-4.9); POTASSIUM 3.5 mmol/L (3.5-5.1); SGOT/AST 30 U/L (15-37); SGPT/ALT 43 U/L (13-61); SODIUM 138 mmol/L (136-145); TOT PROT 7.2 g/dl (6.4-8.2)
[2018-08-30] MEDS ORDERED: PT OWN MED DRAWER 7, Y5N ONE ×3 (09:54→14:39)
--- NOTE | 2018-08-30 10:32 | EKG ---
Test Reason : Blood Pressure : / mmHG Vent. Rate : 090 BPM Atrial Rate : 090 BPM P-R Int : 158 ms QRS Dur : 086 ms QT Int : 372 ms P-R-T Axes : 032 013 000 degrees QTc Int : 455 ms NORMAL SINUS RHYTHM MODERATE VOLTAGE CRITERIA FOR LVH, MAY BE NORMAL VARIANT Confirmed by MAGY MELÉNDEZ MD ([id number]) on 08/30/2018 10:32:04 AM Referred By: Confirmed By:MAGY MELÉNDEZ MD
[2018-08-30] MEDS: valACYclovir HCL 500 MG TABLET (FP) PO SCH ×2 (10:36→22:31)
[2018-08-30] MEDS: HEPARIN NA (PORCINE) 5,000 UNITS/ML 1ML VIAL SQ SCH (10:38)
[2018-08-30] MEDS ORDERED: ACETAMINOPHEN 325 MG TABLET (FP) PO PRN (11:00)
--- NOTE | 2018-08-30 11:05 | PN ---
Progress Note, Physician Chief Complaint: Multiple sclerosis Fall History of Present Illness: Infectious work up pending Steroids on hold until work up is negative To be seen by Neurology Received 1 gm of medrol yesterday U/S abd right abd wall edema afebrile no leukocytosis BC pending Others' Prescriptions Patient Name: Sudheer Wilkinson Date: 1965 Address: [address] [place] [address] Sex: Male Rx Written Rx Dispensed Drug Quantity Days Supply Prescriber Name 08/07/2018 08/07/2018 oxycodone hcl 10 mg tablet 60 30 Jud Alvares MD 07/26/2018 07/26/2018 oxycodone hcl 10 mg tablet 30 15 Jud Alvares MD Patient Name: Sudheer Wilkinson Date: 1965 Address: [place] [address] Sex: Male Rx Written Rx Dispensed Drug Quantity Days Supply Prescriber Name 07/09/2018 07/11/2018 oxycodone-acetaminophen 5-325 mg tablet 40 10 Albin Osorio MD 07/10/2018 07/11/2018 oxycodone-acetaminophen 10-325 mg tablet 90 23 Denilson Art MD 07/09/2018 07/11/2018 morphine sulfate ir 15 mg tab 60 20 Albin Osorio MD 07/09/2018 07/10/2018 zolpidem tartrate 5 mg tablet 10 10 Albin Osorio MD Patient Name: Sudheer Wilkinson Date: 1965 Address: [address] [place] [address] Sex: Male Rx Written Rx Dispensed Drug Quantity Days Supply Prescriber Name 06/28/2018 06/28/2018 morphine sulfate ir 15 mg tab 30 5 Mohsen Chpaman MD 06/21/2018 06/22/2018 morphine sulfate ir 15 mg tab 60 10 Mohsen Chapman MD 06/02/2018 06/03/2018 morphine sulfate ir 15 mg tab 45 7 Mohsen Chapman MD 06/02/2018 06/03/2018 tramadol hcl 50 mg tablet 30 7 Mohsen Chapman MD 05/22/2018 05/22/2018 morphine sulfate ir 15 mg tab 30 10 Mohsen Chapman MD 05/14/2018 05/15/2018 morphine sulfate ir 15 mg tab 30 5 Mohsen Chapman MD 05/14/2018 05/15/2018 tramadol hcl 50 mg tablet 30 7 Mohsen Chapman MD 09/26/2017 09/26/2017 oxycodone-acetaminophen 5-325 mg tab 60 7 Ines Castro Justa 09/21/2017 09/21/2017 oxycodone-acetaminophen 5-325 mg tab 30 4 Kris Arroyo Patient Name: Sudheer Wilkinson Date: 1965 Address: [place] [address] Sex: Male Rx Written Rx Dispensed Drug Quantity Days Supply Prescriber Name 10/26/2017 10/26/2017 oxycodone-acetaminophen 10-325 mg tab 30 4 Arabella Manjarrez (RN,MSN,ETL LEAD-Bc) 10/26/2017 10/26/2017 fentanyl 25 mcg/hr patch 10 30 Viviana Robins MD - Current Medication List Current Medications: Active Medications Acetaminophen (Tylenol -) 650 mg PO Q6H PRN PRN Reason: FEVER Docusate Sodium (Colace -) 300 mg PO HS [facility] Last Admin: 08/29/18 23:14 Dose: Not Given Gabapentin (Neurontin -) 300 mg PO TID [facility] Last Admin: 08/30/18 05:17 Dose: 300 mg Heparin Sodium (Porcine) (Heparin -) 5,000 unit SQ BID [facility] Last Admin: 08/30/18 10:38 Dose: Not Given Cefazolin Sodium (Ancef 1 Gm Premixed Ivpb -) 1 gm in 50 mls @ 100 mls/hr IVPB Q8H-IV AIYANA Last Admin: 08/30/18 10:37 Dose: 100 mls/hr Morphine Sulfate (Morphine Sulfate) 2 mg IVPUSH Q4H PRN PRN Reason: PAIN LEVEL 6-10 Last Admin: 08/30/18 05:17 Dose: 2 mg Valacyclovir HCl (Valtrex -) 1,000 mg PO BID [facility] Last Admin: 08/30/18 10:36 Dose: 1,000 mg - Objective Vital Signs: Vital Signs Temperature 97.9 F 08/30/18 06:00 Pulse Rate 96 H 08/30/18 06:00 Respiratory Rate 20 08/30/18 06:00 Blood Pressure 122/79 08/30/18 06:00 O2 Sat by Pulse Oximetry (%) 94 L 08/29/18 20:17 Constitutional: Yes: Well Nourished, No Distress, Calm Cardiovascular: Yes: Regular Rate and Rhythm Respiratory: Yes: Regular Gastrointestinal: Yes: Normal Bowel Sounds, Soft, Tenderness (RLQ at the injection site) Musculoskeletal: Yes: Muscle Weakness Edema: No Peripheral Pulses WNL: Yes Neurological: Yes: Alert, Oriented Psychiatric: Yes: Alert, Oriented Labs: CBC, BMP 08/30/18 06:20 08/30/18 06:20 INR, PTT INR 1.01 (0.83-1.09) 08/30/18 06:20 Problem List - Problems (1) Cellulitis Assessment/Plan: -U/S abd reviewed -Seen by ID -afebrile -no leukocytosis -IV abx -Ice Q2h for 15 mins Code(s): L03.90 - CELLULITIS, UNSPECIFIED Qualifiers: Site of cellulitis: other site Qualified Code(s): L03.818 - Cellulitis of other sites (2) Multiple sclerosis exacerbation Assessment/Plan: -Neurology consult -Medrol on hold until infectious workup is complete Code(s): G35 - MULTIPLE SCLEROSIS (3) Opioid abuse Assessment/Plan: -check urine Toxicology -HCS history reviewed and copied above Code(s): F11.10 - OPIOID ABUSE, UNCOMPLICATED Assessment/Plan see problem list Physical therapy
--- NOTE | 2018-08-30 11:36 | CONSULT ---
Consult - text type - Consultation Consultation Note: NEUROLOGY CONSULT APPRECIATED: Events reviewed and discussed with staff and Dr. Foster. 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 He was given a diagnosis of Multiple Sclerosis in 2004, reportedly by positive lumbar puncture. He has been maintained on Copaxone 20 mg qd, with "attacks" occurring 1-2 times per year. (Previously followed by Dr. Aviles). He recently visited a neurologist in [place], who changed copaxone to 40 mg 3x/we and believes he is having more MS "attacks" due to "underdosing" of medication. He reports he since has had approximately 6-8 flares with this change. He reports his "attacks" are similar and involve blurred vision, "electricity sensation" in back of eyes, headache, weakness and "no sensation" in left extremities and left face, and tendency to fall despite rolling walker. He sought medical attention at [facility] after slipping on "mud" outside two days ago and hearing "crack" of his L ankle, and received an x-ray which was unremarkable. He then returned to PCP, who requested he come to [facility] for possible IV steroid infusion for MS flare. He believes his last MRI was done last year. Pt currently receiving valcyclovir for herpetic eruption on lip and cefazolin. Methyprednisolone currently on hold. PMHX: Bipolar, and Factor V Leiden with PE Medications: gabapentin, glatiramer acetate, ibuprofen, abixaban, oxycodone 10 mg QID Social hx: former smoker, polysubstance abuse (alcohol, cocaine, opioid, last detox 2017) Review of systems is significant for history of headaches since his diagnosis of MS with similar "electricity" sensation behind eyes, photophobia and kinesiophobia and dizziness. He reports this can occur for a whole day and occurs about once a month. He also notes >10 years of generalized "shooting, "stabbing" pains in all his "joints" worse at nighttime, interrupting sleep with recurrent awakenings. Head CT: essentially normal study ESR 38, UA neg. RUSLAN: BP 140/90 without orthostatic changes. Cor reg. Neg bruit. Neck supple. Neg Lhermitte's. Scabbing sore noted under lower lip. NEURO EXAM: Mentation/speech: Pressured speech. [facility]. August 30, 2018. Recall 09/01 at 10. CNII-CNXII: EOM full without nystagmus. Full [place] appreciated. ? Possible R hemifacial spasm Motor: No drift. Strength normal throughout. Reflexes normal and symmetric. Toes downgoing. Coordination: No FTN dytaxia. Sensation: Withdraws to pinch in all fours and face. Romberg +/- Gait: Variable. Unsteady. Impression: 1. Possible MS exacerbation 2. Migraine headaches. Some of the "attacks" that patient attributes to MS are almost certainly migrainous in etiology 2. Chronic pain and parasthesia suggesting Migraine-associated Restless Limbs Syndrome (RLS). 3. Factor V Leiden Deficiency Suggest: Continue home Copaxone 40 mg 3x/week at this time Await MRI of brain C+/C- Continue Eliquis 5 mg BID and Rx for infection. Orthostatic BP's Begin migraine prophylaxis treatment with Propranolol ER 60 mg. Try Pramipexole for chronic pain complaints beginning with 0.25 mg at bedtime x 2 days then 0.25 mg BID after breakfast and dinner. Thank you very much. Justo Castillo MD
[2018-08-30] MEDS: APIXABAN 5 MG TABLET PO SCH ×2 (11:55→22:31)
[2018-08-30] MEDS: oxyCODONE HCL 5 MG TABLET PO PRN (13:34)
--- NOTE | 2018-08-30 16:12 | PN ---
Progress Note (short form) - Note Progress Note: rash unchanged very itchy erythema of abdomen has resolved no fevers Vital Signs Period Temp Pulse Resp BP Sys/James Pulse Ox Last 24 Hr 97.2 F-97.9 F 92-98 18-20 122-144/79-96 94-95 drying lip lesions cor-rrr lungs clear abd soft,nt mild erythema right flank (almost resolved) itchy dry rash both eyes, wrists and antecub area CBC, BMP 08/30/18 06:20 08/30/18 06:20 ultrasound no abscess mp/reccd possible cellulitis obtain blood cultures ancef for possible cellulitis at the injection site, continue valtrex for oral hsv rash- ?copaxone, ?viral neurology eval of MS no objjection to steroids in am if blood cultures are negative
[2018-08-30 19:45] LABS: COCAINE, UR NEGATIVE ng/ml (CUTOFF=300); METHADONE, UR NEGATIVE ng/ml (CUTOFF=300); PHENCYCLIDINE,URINE NEGATIVE ng/ml (CUTOFF=25); URINE AMPHETAMINES NEGATIVE ng/ml (CUTOFF=500); URINE BARBITURATES NEGATIVE ng/ml (CUTOFF=200); URINE BENZODIAZEPINES NEGATIVE ng/ml (CUTOFF=200)
[2018-08-30 19:50] LABS: OPIATES, URI POSITIVE ng/ml (CUTOFF=300)
[2018-08-30] MEDS: DOCUSATE SODIUM 100 MG CAPSULE (FP) PO SCH (22:30)
[2018-08-30] MEDS: PRAMIPEXOLE DIHYDROCHLORIDE 0.25 MG TABLET PO SCH (22:31)
[2018-08-31] MEDS: oxyCODONE HCL 5 MG TABLET PO PRN ×2 (01:37→15:00)
[2018-08-31] MEDS: CEFAZOLIN 1 GM/D5W 1 GM/50 ML BAG IVPB SCH ×3 (01:37→17:14)
[2018-08-31] MEDS: GABAPENTIN 300 MG CAPSULE (FP) PO SCH ×3 (05:33→21:36)
--- NOTE | 2018-08-31 10:43 | PN ---
Progress Note, Physician Chief Complaint: AWAKE ALERT EVENTS AND NOTES REVIEWED - Current Medication List Current Medications: Active Medications Acetaminophen (Tylenol -) 650 mg PO Q6H PRN PRN Reason: FEVER Acetaminophen (Tylenol -) 325 mg PO Q6H PRN PRN Reason: PAIN LEVEL 4 - 6 Apixaban (Eliquis -) 5 mg PO BID [facility] Last Admin: 08/30/18 22:31 Dose: 5 mg Docusate Sodium (Colace -) [address] [facility] Last Admin: 08/30/18 22:30 Dose: Not Given Gabapentin (Neurontin -) 300 mg PO TID [facility] Last Admin: 08/31/18 05:33 Dose: 300 mg Cefazolin Sodium (Ancef 1 Gm Premixed Ivpb -) 1 gm in 50 mls @ 100 mls/hr IVPB Q8H-IV [facility] Last Admin: 08/31/18 01:37 Dose: 100 mls/hr Oxycodone HCl (Roxicodone -) 10 mg PO BID PRN PRN Reason: PAIN LEVEL 7-10 Last Admin: 08/31/18 01:37 Dose: 10 mg Pramipexole Dihydrochloride (Mirapex -) 0.[address] [facility] Last Admin: 08/30/18 22:31 Dose: 0.25 mg Propranolol HCl (Inderal La -) 60 mg PO DAILY [facility] Valacyclovir HCl (Valtrex -) 1,000 mg PO BID [facility] Last Admin: 08/30/18 22:31 Dose: 1,000 mg - Objective Vital Signs: Vital Signs Temperature 98.2 F 08/31/18 06:33 Pulse Rate 84 08/31/18 06:33 Respiratory Rate 20 08/31/18 06:33 Blood Pressure 128/79 08/31/18 06:33 O2 Sat by Pulse Oximetry (%) 96 08/30/18 21:00 Constitutional: Yes: Mild Distress Eyes: Yes: WNL HENT: Yes: WNL Neck: Yes: WNL Cardiovascular: Yes: Regular Rate and Rhythm Respiratory: Yes: WNL Gastrointestinal: Yes: Soft, Abdomen, Obese Genitourinary: Yes: WNL Musculoskeletal: Yes: Muscle Weakness Extremities: Yes: Other Edema: No Integumentary: Yes: WNL Wound/Incision: Yes: Clean/Dry Neurological: Yes: Pre-Existing Deficit, Weakness ...Motor Strength: LLE Psychiatric: Yes: WNL Labs: CBC, BMP 08/30/18 06:20 08/30/18 06:20 INR, PTT INR 1.01 (0.83-1.09) 08/30/18 06:20 Problem List - Problems (1) Cellulitis Code(s): L03.90 - CELLULITIS, UNSPECIFIED Qualifiers: Site of cellulitis: other site Qualified Code(s): L03.818 - Cellulitis of other sites (2) Factor V Leiden Code(s): D68.51 - ACTIVATED PROTEIN C RESISTANCE (3) Multiple sclerosis exacerbation Code(s): G35 - MULTIPLE SCLEROSIS (4) Alcohol dependence Code(s): F10.20 - ALCOHOL DEPENDENCE, UNCOMPLICATED (5) Cocaine dependence Code(s): F14.20 - COCAINE DEPENDENCE, UNCOMPLICATED (6) Opioid abuse Code(s): F11.10 - OPIOID ABUSE, UNCOMPLICATED Assessment/Plan IV ABX PAIN CONTROL NEURO/ID F/U DVT PROPHYLAXIS OOB TO CHAIR
[2018-08-31] MEDS ORDERED: PT OWN MED DRAWER 7, Y5N ONE (10:45)
[2018-08-31] MEDS: APIXABAN 5 MG TABLET PO SCH ×2 (10:49→21:37)
[2018-08-31] MEDS: valACYclovir HCL 500 MG TABLET (FP) PO SCH ×2 (10:49→21:37)
[2018-08-31] MEDS: PRAMIPEXOLE DIHYDROCHLORIDE 0.25 MG TABLET PO SCH (21:37)
[2018-08-31] MEDS: DOCUSATE SODIUM 100 MG CAPSULE (FP) PO SCH (21:37)
[2018-09-01] MEDS: CEFAZOLIN 1 GM/D5W 1 GM/50 ML BAG IVPB SCH ×2 (02:50→10:21)
[2018-09-01] MEDS: oxyCODONE HCL 5 MG TABLET PO PRN (02:50)
[2018-09-01] MEDS: GABAPENTIN 300 MG CAPSULE (FP) PO SCH (06:26)
[2018-09-01 06:39] VITALS: TEMP 98.3
[2018-09-01] MEDS: APIXABAN 5 MG TABLET PO SCH (10:21)
[2018-09-01] MEDS: valACYclovir HCL 500 MG TABLET (FP) PO SCH (10:22)
--- NOTE | 2018-09-01 10:40 | PN ---
Progress Note, Physician - Current Medication List Current Medications: Active Medications Acetaminophen (Tylenol -) 650 mg PO Q6H PRN PRN Reason: FEVER Acetaminophen (Tylenol -) 325 mg PO Q6H PRN PRN Reason: PAIN LEVEL 4 - 6 Apixaban (Eliquis -) 5 mg PO BID [facility] Last Admin: 09/01/18 10:21 Dose: 5 mg Docusate Sodium (Colace -) 300 mg PO HS [facility] Last Admin: 08/31/18 21:37 Dose: Not Given Gabapentin (Neurontin -) 300 mg PO TID [facility] Last Admin: 09/01/18 06:26 Dose: 300 mg Cefazolin Sodium (Ancef 1 Gm Premixed Ivpb -) 1 gm in 50 mls @ 100 mls/hr IVPB Q8H-IV [facility] Last Admin: 09/01/18 10:21 Dose: 100 mls/hr Oxycodone HCl (Roxicodone -) 10 mg PO BID PRN PRN Reason: PAIN LEVEL 7-10 Last Admin: 09/01/18 02:50 Dose: 10 mg Pramipexole Dihydrochloride (Mirapex -) 0.25 mg PO [facility] Last Admin: 08/31/18 21:37 Dose: 0.25 mg Prednisone (Deltasone -) 80 mg PO DAILY [facility] Propranolol HCl (Inderal La -) 60 mg PO DAILY [facility] Last Admin: 09/01/18 10:21 Dose: 60 mg Valacyclovir HCl (Valtrex -) 1,000 mg PO BID [facility] Last Admin: 09/01/18 10:22 Dose: 1,000 mg - Objective Vital Signs: Vital Signs Temperature 98.3 F 09/01/18 06:38 Pulse Rate 71 09/01/18 06:38 Respiratory Rate 20 09/01/18 06:38 Blood Pressure 152/81 09/01/18 06:38 O2 Sat by Pulse Oximetry (%) 98 08/31/18 21:00 Labs: CBC, BMP 08/30/18 06:20 08/30/18 06:20 INR, PTT INR 1.01 (0.83-1.09) 08/30/18 06:20 Problem List - Problems (1) Cellulitis Code(s): L03.90 - CELLULITIS, UNSPECIFIED Qualifiers: Site of cellulitis: other site Qualified Code(s): L03.818 - Cellulitis of other sites (2) Factor V Leiden Code(s): D68.51 - ACTIVATED PROTEIN C RESISTANCE (3) Multiple sclerosis exacerbation Code(s): G35 - MULTIPLE SCLEROSIS (4) Alcohol dependence Code(s): F10.20 - ALCOHOL DEPENDENCE, UNCOMPLICATED (5) Cocaine dependence Code(s): F14.20 - COCAINE DEPENDENCE, UNCOMPLICATED (6) Opioid abuse Code(s): F11.10 - OPIOID ABUSE, UNCOMPLICATED
[2018-09-01] MEDS ORDERED: predniSONE 20 MG TABLET (UD) PO SCH (10:45)
[2018-09-01] MEDS ORDERED: methylPREDNISolone NA SUCC 40 MG/1 ML VIAL IVPUSH SCH (10:45)
[2018-09-01 13:46] VITALS: BP 141/94; PULSE 75
== END 2018-09-01 13:58 | disposition left against medical advice (07) | DRG 43 ==
LOC: JER 11:24 → JERBED 14:35 → J5S 18:13
PROVIDERS: ADMIT Student in an Organized Health Care Education/Training Program; ATTEND Student in an Organized Health Care Education/Training Program
DX: G35 Multiple sclerosis (principal); L03.311 Cellulitis of abdominal wall; F14.20 Cocaine dependence, uncomplicated; D68.51 Activated protein C resistance; F11.10 Opioid abuse, uncomplicated; F31.9 Bipolar disorder, unspecified; Z86.711 Personal history of pulmonary embolism; Z79.01 Long term (current) use of anticoagulants; G43.909 Migraine, unspecified, not intractable, without status migrainosus; G89.29 Other chronic pain; G25.81 Restless legs syndrome; F10.20 Alcohol dependence, uncomplicated
CPT/HCPCS: 36415; 70450-TC; 71045-TC-FY; 76705; 80053; 80307; 81003; 82550; 83735; 84100; 84484; 85025; 85027; 85610; 85651; 85730; 87040; 87804; 93005; 93010; 97116-GP; 97162-GP; 99284-25; J0131

== ENCOUNTER 2018-09-05 18:30 | Inpatient (IN) | payer OTHER ==
--- NOTE | 2018-09-05 19:31 | PDOC ---
Rapid Medical Evaluation Chief Complaint: Wound Medical Evaluation: Allergies Allergy/AdvReac Type Severity Reaction Status Date / Time No Known Drug Allergies Allergy Unknown Verified 08/29/18 11:27 LIVER Allergy Hives Uncoded 08/29/18 11:27 09/05/18 19:29 I have performed a brief in-person evaluation of this patient. The patient presents with a chief complaint of: ? MS flare- vision blurred, weakness in legs, Pertinent physical exam findings: pale, ambulatory - pruitic rash generalized all of body I have ordered the following: CBC, CMP, The patient will proceed to the ED for further evaluation.
--- NOTE | 2018-09-05 20:35 | PDOC ---
Attending Attestation - HPI HPI: The patient is a 52 year old male, with a significant PMH of MS, polysubstance abuse (EtOH, cocaine, and opioids, last detox in 2017), bipolar disorder, and Factor V Leiden with PE (on Eliquis), who presents to the emergency department today for rash/possible cellulitis flare up for 1 week. Patient was seen in the ED one week ago for MS flare up and rash which was treated as cellulitis. Patient notes that the rash and itching has returned to the inside of his elbows , wrists, back of his knees, stomach, rectum, and scrotum. The patient denies chest pain, shortness of breath, headache and dizziness. Denies fever, chills, nausea, vomit, diarrhea and constipation. Denies dysuria, frequency, urgency and hematuria. Allergies: NKA Past surgical history: Right knee arthroscopy Social history: Polysubstance abuse (EtOH, cocaine, and opioids, last detox in 2017) PCP: Dr. Mohsen Mendoza 09/05/18 21:18 - Medical Decision Making Documentation prepared by CHAVA Marte, acting as biomedical specialist for Jass Reynaga MD. 09/05/18 21:18 <Laurel Emmanuel - Last Filed: 09/05/18 21:18> - Resident Resident Name: Tae Richards - ED Attending Attestation I have performed the following: I have examined & evaluated the patient, The case was reviewed & discussed with the resident, I agree w/resident's findings & plan, Exceptions are as noted - HPI HPI: 09/06/18 02:06 Patient also complaining of current flare of his MS endorsed symptoms typical of prior flares, vision blurriness and diffuse msk px - Physicial Exam PE: 09/06/18 02:07 Agree with exam as documented by resident : no crepitus, tenderness, gangrene, fluctuance - Medical Decision Making 09/06/18 02:08 Patient expressing concern with rash and redness. States that he was told if he has redness that it might be a recurrence of his "colitis" for which he needs to return to ED for antibiotics. On chart review it appears that there was concern for cellulitis originating from his copaxone injection sites. No signs of cellulitis on exam, no abdominal complaints or findings. Perineal lesions appear consistent with fungal infection, perri's unlikely. Pt endorsing MS flare with characteristic symptoms from prior flares admit for optimization of MS tx <Jass Reynaga - Last Filed: 09/06/18 03:31>
[2018-09-05] MEDS ORDERED: CLOTRIMAZOLE 1%TOPICAL SOLUTION 30 ML BOTTLE TP ONE (20:59)
--- NOTE | 2018-09-05 21:15 | PDOC ---
History of Present Illness - General Chief Complaint: Rash Stated Complaint: PAIN/WEAKNESS/ITCHY MIRANDA ON SKIN Time Seen by Provider: 09/05/18 20:06 History Source: Patient Exam Limitations: No Limitations - History of Present Illness Initial Comments: 09/05/18 21:04 The patient is a 52M with a PMH of MS, polysubstance abuse (alcohol, cocaine, opioid, last detox 2016), bipolar, and Factor V Leiden with PE (on Eliquis), who presents to the ER with complaints of a rash. The patient states that he's had 1 week of cellulitis that is worsening and becoming more itchy. The patient states that since his last admission, he had a "red rash" which has worsened in itchiness and spread throughout his body. He states that he had a fever 3 days ago but denies current fever, chills, nausea, vomiting, CP, SOB. Past History - Past Medical History Allergies/Adverse Reactions: Allergies Allergy/AdvReac Type Severity Reaction Status Date / Time No Known Drug Allergies Allergy Unknown Verified 09/05/18 19:31 LIVER Allergy Hives Uncoded 09/05/18 19:31 Home Medications: Ambulatory Orders Gabapentin [Neurontin] 300 mg PO TID 10/14/17 Glatiramer Acetate [Copaxone (Nf) -] 20 mg SQ ASDIR 10/14/17 Acetaminophen [Tylenol .Regular Strength -] 325 mg PO Q6H PRN tablet 10/18/17 Ibuprofen 600 mg PO QID PRN #10 tablet 11/01/17 Apixaban [Eliquis -] 5 mg PO BID 08/29/18 Oxycodone HCl 10 mg PO QID PRN 08/29/18 Anemia: No Asthma: No Cancer: No Cardiac Disorders: No CVA: No COPD: No CHF: No Dementia: No Diabetes: No GI Disorders: No Disorders: No HTN: No Hypercholesterolemia: No Kidney Stones: No Liver Disease: No Seizures: No Thyroid Disease: No - Surgical History Abdominal Surgery: No Appendectomy: No Cardiac Surgery: No Cholecystectomy: No Lung Surgery: No Neurologic Surgery: No Orthopedic Surgery: Yes (ARTHROSCOPIC SX R KNEE 09/2008 IN [facility]) - Reproductive History Testicular Surgery: No - Suicide/Smoking/Psychosocial Hx Smoking History: Never smoked Have you smoked in the past 12 months: No Number of Cigarettes Smoked Daily: 1 Information on smoking cessation initiated: No 'Breaking Loose' booklet given: 05/04/17 Hx Alcohol Use: No Drug/Substance Use Hx: No Substance Use Type: None Hx Substance Use Treatment: Yes Review of Systems - Review of Systems Able to Perform ROS?: Yes Comments:: 09/05/18 21:22 GENERAL/CONSTITUTIONAL: No fever or chills. No weakness. HEAD, EYES, EARS, NOSE AND THROAT: No change in vision. No ear pain or discharge. No sore throat. CARDIOVASCULAR: No chest pain, palpitations, or lightheadedness. RESPIRATORY: No cough, wheezing, shortness of breath, or hemoptysis. GASTROINTESTINAL: No nausea, vomiting, diarrhea, constipation, or abdominal pain. GENITOURINARY: No dysuria, frequency, hematuria, or change in urination. MUSCULOSKELETAL: No joint or muscle swelling or pain. No neck or back pain. SKIN: + for rash on arms, legs, and genitalia. NEUROLOGIC: No headache, numbness, tingling, focal weakness, loss of consciousness, or change in strength/sensation. Is the patient limited Bahamian proficient: No *Physical Exam - Vital Signs Last Vital Signs Temp Pulse Resp BP Pulse Ox 98.2 F 102 H 16 143/84 100 09/05/18 19:29 09/05/18 19:29 09/05/18 19:29 09/05/18 19:29 09/05/18 19:29 - Physical Exam Comments: 09/05/18 21:22 GENERAL: Well developed, well nourished. Awake and alert. No acute distress. HEENT: Normocephalic, atraumatic. Hearing grossly normal. Moist mucous membranes. PERRLA, EOMI. No conjunctival pallor. NECK: Supple. Full ROM. No JVD. CARDIOVASCULAR: Regular rate and rhythm. No murmurs, rubs, or gallops. PULMONARY: No evidence of respiratory distress. Lungs clear to auscultation bilaterally. No wheezing, rales or rhonchi. ABDOMINAL: Soft. Non-tender. Non-distended. No rebound or guarding. GENITOURINARY: No CVA tenderness bilaterally. MUSCULOSKELETAL: Normal range of motion at all joints. No bony deformities or tenderness. EXTREMITIES: No cyanosis. No clubbing. No edema. No calf tenderness or swelling. SKIN: Diffuse eczematous rash on b/l AC and posterior knees. Erythema over intergluteal cleft and scrotum with defined border, nonblanching, spreading to scrotum. Warm and dry. Normal capillary refill. No rashes. No jaundice. NEUROLOGICAL: Alert, awake, appropriate. Cranial nerves 2-12 grossly intact. Normal speech. Gait is normal without ataxia. PSYCHIATRIC: Cooperative. Good eye contact. Appropriate mood and affect. Moderate Sedation - Procedure Monitoring Vital Signs: Procedure Monitoring Vital Signs Temperature 98.2 F 09/05/18 19:29 Pulse Rate 102 H 09/05/18 19:29 Respiratory Rate 16 09/05/18 19:29 Blood Pressure 143/84 09/05/18 19:29 O2 Sat by Pulse Oximetry (%) 100 09/05/18 19:29 ED Treatment Course - LABORATORY CBC & Chemistry Diagram: 09/05/18 21:15 09/05/18 21:15 Medical Decision Making - Medical Decision Making 09/05/18 21:31 The patient is a 52M with a PMH of MS, recently d/c from our facility for cellulitis, who presents with a worsening rash involving his scrotum. Due to new involvement of the scrotum, will r/o Dave's with CT+. Likely fungal in the intergluteal cleft. Will give benadryl and topical azole for fungal infection. Pending labs and CT. Pt also endorsing symptoms of MS flare up ( worsening/blurriness of vision and joint discomfort). 09/06/18 00:[address] pending. Will admit for obs for MS flare up. 09/06/18 00:27 Pt endorsed to [facility] for admission under Dr. Diaz. *DC/Admit/Observation/Transfer Diagnosis at time of Disposition: Multiple sclerosis exacerbation - Discharge Dispostion Condition at time of disposition: Guarded Decision to Admit order: Yes - Referrals Referrals: Mohsen Chapman [Primary Care Provider] - - Patient Instructions - Post Discharge Activity
[2018-09-05 21:33] LABS: BASO % 0.8 % (0-2.0); EOS % 4.4 % (0-4.5); HEMATOCRIT 35.1 % (35.4-49); HEMOGLOBIN 11.8 GM/dL (11.7-16.9); LYMPH % 30.2 % (8-40); MCH 29.1 pg (25.7-33.7); MCHC 33.7 g/dl (32.0-35.9); MEAN CELL VOLUME 86.5 fl (80-96); MEAN PLT VOLUME 7.6 fl (7.5-11.1); NEUT % 54.6 % (42.8-82.8); PLATELET COUNT 310 K/MM3 (134-434); RBC 4.06 M/mm3 (4.00-5.60); RDW 17.5 % (11.9-15.9); WHITE BLOOD COUNT 6.2 K/mm3 (4.0-10.0)
[2018-09-05 22:02] LABS: ALBUMIN 3.2 g/dl (3.4-5.0); ALK PHOS 67 U/L (45-117); ANION GAP 7 MMOL/L (8-16); BILIRUBIN,TOTAL 0.3 mg/dL (0.2-1); BLOOD UREA NITROGEN 13 mg/dL (7-18); CALCIUM 8.6 mg/dL (8.5-10.1); CHLORIDE 107 mmol/L (98-107); CO2 28 mmol/L (21-32); GLUCOSE,RANDOM 104 mg/dL (74-106); POTASSIUM 4.2 mmol/L (3.5-5.1); SGOT/AST 25 U/L (15-37); SGPT/ALT 35 U/L (13-61); SODIUM 143 mmol/L (136-145); TOT PROT 6.8 g/dl (6.4-8.2)
--- NOTE | 2018-09-06 00:37 | HP ---
CHIEF COMPLAINT: PCP: Dr. Mohsen Chapman HISTORY OF PRESENT ILLNESS: This is a 52 y/o man with a PMHx of MS, Polysubstance Abuse (Alcohol, Cocaine, Opioid, last detox 2017), Bipolar Disorder, and Factor V Leiden with PE (on Eliquis). Who presents to the ED with complaints of a rash. The patient states that he's had 1 week of cellulitis that is worsening and becoming increasingly pruritic. The patient states that since his last admission, he had a "red rash" which has worsened in itchiness and spread throughout his body. He states that he had a fever 3 days ago but denies current fever, chills, nausea, vomiting, CP , SOB. ER course was notable for: (1) ESR 38 (2) (3) Recent Travel: None PAST MEDICAL HISTORY: See HPI PAST SURGICAL HISTORY: Social History: Smoking: Former Alcohol: Alcohol Dependence hx Drugs: Cocaine, Opioid Dependence hx Family History: Non- Contributory Allergies No Known Drug Allergies Allergy (Unknown, Verified 09/05/18 19:31) LIVER Allergy (Uncoded 09/05/18 19:31) Hives HOME MEDICATIONS: Home Medications Medication Instructions Recorded Gabapentin [Neurontin] 300 mg PO TID 10/14/17 Glatiramer Acetate [Copaxone (Nf) 20 mg SQ ASDIR 10/14/17 -] Acetaminophen [Tylenol .Regular 325 mg PO Q6H PRN tablet 10/18/17 Strength -] Ibuprofen 600 mg PO QID PRN #10 tablet 11/01/17 Apixaban [Eliquis -] 5 mg PO BID 08/29/18 Oxycodone HCl 10 mg PO QID PRN 08/29/18 REVIEW OF SYSTEMS CONSTITUTIONAL: fever Absent: chills, diaphoresis, malaise, generalized weakness, loss of appetite, weight change HEENT: visual changes Absent: rhinorrhea, nasal congestion, throat pain, throat swelling, difficulty swallowing, mouth swelling, ear pain, eye pain CARDIOVASCULAR: Absent: chest pain, syncope, palpitations, irregular heart rate, lightheadedness , peripheral edema RESPIRATORY: Absent: cough, shortness of breath, dyspnea with exertion, orthopnea, wheezing, stridor, hemoptysis GASTROINTESTINAL: Absent: abdominal pain, abdominal distension, nausea, vomiting, diarrhea, constipation, melena, hematochezia GENITOURINARY: Absent: dysuria, frequency, urgency, hesitancy, hematuria, flank pain, genital pain MUSCULOSKELETAL: arthralgia Absent: myalgia, joint swelling, back pain, neck pain SKIN: rash, itching Absent: pallor HEMATOLOGIC/IMMUNOLOGIC: Absent: easy bleeding, easy bruising, lymphadenopathy, frequent infections ENDOCRINE: Absent: unexplained weight gain, unexplained weight loss, heat intolerance, cold intolerance NEUROLOGIC: Absent: headache, focal weakness or paresthesias, dizziness, unsteady gait, seizure, mental status changes, bladder or bowel incontinence PSYCHIATRIC: Absent: anxiety, depression, suicidal or homicidal ideation, hallucinations. PHYSICAL EXAMINATION Vital Signs - 24 hr 09/05/18 19:29 Temperature 98.2 F Pulse Rate 102 H Respiratory 16 Rate Blood Pressure 143/84 O2 Sat by Pulse 100 Oximetry (%) GENERAL: Awake, alert, and fully oriented, in no acute distress. HEAD: Normal with no signs of trauma. EYES: Pupils equal, round and reactive to light, extraocular movements intact, sclera anicteric, conjunctiva clear. No lid lag. EARS, NOSE, THROAT: Ears normal, nares patent, oropharynx clear without exudates. Moist mucous membranes. NECK: Normal range of motion, supple without lymphadenopathy, JVD, or masses. LUNGS: Breath sounds equal, clear to auscultation bilaterally. No wheezes, and no crackles. No accessory muscle use. HEART: Regular rate and rhythm, normal S1 and S2 without murmur, rub or gallop. ABDOMEN: Soft, nontender, not distended, normoactive bowel sounds, no guarding, no rebound, no masses. No hepatomegaly or splenomegaly. GENITOURINARY: Erythema, petechial rash, edema to scrotum MUSCULOSKELETAL: Normal range of motion at all joints. No bony deformities or tenderness. No CVA tenderness. UPPER EXTREMITIES: 2+ pulses, warm, well-perfused. No cyanosis. No clubbing. No peripheral edema. LOWER EXTREMITIES: 2+ pulses, warm, well-perfused. No calf tenderness. No peripheral edema. NEUROLOGICAL: Cranial nerves II-XII intact. Normal speech. Gait not observed. PSYCHIATRIC: Cooperative. Good eye contact. Appropriate mood and affect. SKIN: Erythematous petechial non-raised rashes to b/l arms, back, right groin, scrotum. Warm, dry, normal turgor, or lesions noted, normal capillary refill. Laboratory Results - last 24 hr 09/05/18 09/05/18 09/05/18 21:15 21:15 21:15 WBC 6.2 RBC 4.06 Hgb 11.8 Hct 35.1 L MCV 86.5 MCH 29.1 MCHC 33.7 RDW 17.5 H Plt Count 310 MPV 7.6 Absolute Neuts (auto) 3.4 Neutrophils % 54.6 Lymphocytes % 30.2 D Monocytes % 10.0 Eosinophils % 4.4 Basophils % 0.8 Nucleated RBC % 0 ESR 38 H Sodium 143 Potassium 4.2 Chloride 107 Carbon Dioxide 28 Anion Gap 7 L BUN 13 Creatinine 1.0 Creat Clearance w eGFR > 60 Random Glucose 104 Calcium 8.6 Total Bilirubin 0.3 AST 25 ALT 35 Alkaline Phosphatase 67 Total Protein 6.8 Albumin 3.2 L ASSESSMENT/PLAN: This is a 52 y/o man with a PMHx of MS, Polysubstance Abuse (Alcohol, Cocaine, Opioids, last Detox 2016), Chronic Pain. Placed in Observation for Rash, MS Flare for further evaluation of their emergent condition. Plan: 1. Rash likely drug induced vs Cellulitis Place in Observation ESR 38 Blood Cultures-pending Appreciate ID Consult Benadryl given in ED, will continue Monitor CBC, BMP Monitor vitals 2. MS ? Flare Patient reports visual changes and joint weakness Appreciate Neurology consult Continue home meds 3. Chronic Pain Use Opioids judiciously secondary to Opioid Dependency hx f/u with Pain Mgmt outpatient FEN PO fluids as tolerated Replete lytes prn Regular Diet DVT ppx OOB SCDs Continue Eliquis Code Status: Full Code Dispo: Observation Problem List - Problem (1) Cellulitis Code(s): L03.90 - CELLULITIS, UNSPECIFIED Qualifiers: Site of cellulitis: other site Qualified Code(s): L03.818 - Cellulitis of other sites (2) Multiple sclerosis exacerbation Code(s): G35 - MULTIPLE SCLEROSIS (3) Chronic generalized pain Code(s): R52 - PAIN, UNSPECIFIED; G89.29 - OTHER CHRONIC PAIN (5) Factor V Leiden Code(s): D68.51 - ACTIVATED PROTEIN C RESISTANCE (6) Alcohol dependence Code(s): F10.20 - ALCOHOL DEPENDENCE, UNCOMPLICATED (7) Cocaine dependence Code(s): F14.20 - COCAINE DEPENDENCE, UNCOMPLICATED (8) Opioid abuse Code(s): F11.10 - OPIOID ABUSE, UNCOMPLICATED Visit type - Emergency Visit Emergency Visit: Yes ED Registration Date: 09/05/18 Care time: The patient presented to the Emergency Department on the above date and was hospitalized for further evaluation of their emergent condition. - New Patient This patient is new to me today: Yes Date on this admission: 09/06/18 - Critical Care Critical Care patient: No
[2018-09-06 01:49] LABS: URINE APPEARANCE SLCLOUDY; URINE BILIRUBIN NEGATIVE (<2.0 mg/dL); URINE COLOR LTYELLOW; URINE GLUCOSE (UA) NEGATIVE (NEGATIVE); URINE KETONE NEGATIVE (NEGATIVE); URINE LEUK ESTERASE NEGATIVE (NEGATIVE); URINE NITRITE NEGATIVE (NEGATIVE); URINE PROTEIN NEGATIVE (NEGATIVE); URINE UROBILINOGEN NEGATIVE mg/dL (0.2-1.0)
[2018-09-06 01:58] VITALS: BMI 28.4
[2018-09-06] MEDS: GABAPENTIN 300 MG CAPSULE (FP) PO SCH ×3 (05:49→22:00)
[2018-09-06] MEDS ORDERED: oxyCODONE HCL 5 MG TABLET PO ONE (06:14)
[2018-09-06 07:17] LABS: BASO % 0.7 % (0-2.0); EOS % 5.1 % (0-4.5); HEMATOCRIT 35.4 % (35.4-49); HEMOGLOBIN 11.8 GM/dL (11.7-16.9); LYMPH % 20.5 % (8-40); MCH 29.2 pg (25.7-33.7); MCHC 33.5 g/dl (32.0-35.9); MEAN CELL VOLUME 87.2 fl (80-96); MEAN PLT VOLUME 7.6 fl (7.5-11.1); MONO % 13.3 % (3.8-10.2); NEUT % 60.4 % (42.8-82.8); PLATELET COUNT 283 K/MM3 (134-434); RBC 4.06 M/mm3 (4.00-5.60); RDW 17.4 % (11.9-15.9); WHITE BLOOD COUNT 6.8 K/mm3 (4.0-10.0)
[2018-09-06 08:11] LABS: ANION GAP 3 MMOL/L (8-16); BLOOD UREA NITROGEN 11 mg/dL (7-18); CALCIUM 8.4 mg/dL (8.5-10.1); CHLORIDE 111 mmol/L (98-107); CO2 28 mmol/L (21-32); CREATININE 0.9 mg/dL (0.55-1.3); GLUCOSE,RANDOM 93 mg/dL (74-106); POTASSIUM 4.2 mmol/L (3.5-5.1); SODIUM 142 mmol/L (136-145)
[2018-09-06] MEDS ORDERED: PT OWN MED DRAWER 7, Y5N ONE ×2 (08:48→10:18)
[2018-09-06] MEDS: APIXABAN 5 MG TABLET PO SCH ×2 (09:27→22:00)
--- NOTE | 2018-09-06 14:12 | PN ---
Progress Note (short form) - Note Progress Note: ID CONSULT DICTATED RASH ? ETIOLOGY DOES NOT APPEAR CELLULITIC NO SIGN OF SYSTEMIC INFECTION OBSERVE OFF ANTIBIOTICS TOPICAL ANTIFUNGAL TO SCROTAL/ PERIRECTAL AREA CHECK RPR, HIV DERM EVALUATION
--- NOTE | 2018-09-06 14:18 | EKG ---
Test Reason : Blood Pressure : / mmHG Vent. Rate : 092 BPM Atrial Rate : 092 BPM P-R Int : 156 ms QRS Dur : 086 ms QT Int : 376 ms P-R-T Axes : 065 076 023 degrees QTc Int : 464 ms NORMAL SINUS RHYTHM MODERATE VOLTAGE CRITERIA FOR LVH, MAY BE NORMAL VARIANT Confirmed by MAGY MELÉNDEZ MD ([id number]) on 09/06/2018 2:17:43 PM Referred By: Confirmed By:MAGY MELÉNDEZ MD
[2018-09-06] MEDS ORDERED: MORPHINE SULFATE 2 MG/ML VIAL IVPUSH PRN (14:47)
--- NOTE | 2018-09-06 14:52 | CONS ---
DATE OF CONSULTATION: DATE OF DICTATION: 09/06/2018 HISTORY: The patient is a 52-year-old male with a history of multiple sclerosis, polysubstance abuse, bipolar disorder evaluated for rash. The patient was admitted to [facility] on August 29, 2018 for an exacerbation of MS accompanied by a pruritic rash. At that time, he was treated for possible cellulitis with cefazolin. The patient signed out against medical advice. He now returns with complaints of MS flare and persistent rash. He reported subjective fever at home and a rash, which appears to be limited to the wrist, antecubital fossa, and popliteal fossa bilaterally. He has relief with Benadryl. He also complained of a rash in the scrotal and perirectal area. The patient has been readmitted. There is no documented fever. His white blood cell count is normal with slight predominance of eosinophils. No apparent ill contacts. No recent travel. No new medications. The patient recently had a dosage increase of his Copaxone. He has a history of polysubstance abuse, however, has tested HIV negative in the past. No known sexual contacts or history of sexually transmitted diseases. PAST MEDICAL HISTORY: Positive for MS, polysubstance abuse, bipolar disorder, factor 5 Leiden, pulmonary embolism. ALLERGIES: No known drug allergies. MEDICATIONS: Include Neurontin, Copaxone, Tylenol, ibuprofen, Eliquis, oxycodone. SOCIAL HISTORY: Positive for polysubstance abuse. Former smoker. LABORATORY DATA: White count 6.8 with 60 neutrophils, 20 lymphocytes, 13 monocytes, 5 eosinophils, ESR 38. Hematocrit 35.4, platelet count 283. Urinalysis negative. Creatinine 0.9. Liver enzymes within normal limits. PHYSICAL EXAMINATION: General: He is not acutely toxic appearing. Vital Signs: Temperature 98.3, blood pressure 114/80, pulse 104 and regular, respirations 20 per minute. HEENT: Sclerae anicteric. No oral lesions noted, however, there is a discoid lesion present on the lower lip. No vesicular lesions are noted. Skin: There is a fine exanthem present with some raised areas on the wrists bilaterally palmar aspect, the bilateral antecubital, and bilateral popliteal fossa. It does not appear to be a generalized rash. There is no involvement of the palms or soles. Positive generalized erythema and flaking of the scrotum as well as what appears to be a fungal rash in the gluteal fold. Heart: Sounds S1, S2. Lungs: Clear. Abdomen: Soft and nontender. Extremities: Negative for edema. IMPRESSION: 1. Rash of unclear etiology. 2. Acute exacerbation of multiple sclerosis. 3. History of polysubstance abuse. PLAN: Etiology of rash not clear. It is not a generalized rash, and it is not associated with fever or leukocytosis. No evidence of systemic infection. We will observe off antibiotic therapy. Continue supportive measures with Benadryl. We will order topical antifungal with the scrotal and gluteal area. Dermatology evaluation. We will obtain HIV, RPR, and parvovirus serology. Thank you for the kind referral. MAGY HIGGINS M.D. [id number]
[2018-09-06] MEDS ORDERED: oxyCODONE HCL 5 MG TABLET PO PRN (15:23)
--- NOTE | 2018-09-06 15:36 | PN ---
Progress Note, Physician Chief Complaint: patient seen and examined complaining of scrotal rash and rash on antecubital fossa of arms - Current Medication List Current Medications: Active Medications Apixaban (Eliquis -) 5 mg PO BID [facility] Last Admin: 09/06/18 09:27 Dose: 5 mg Clotrimazole (Lotrimin 1% Cream -) 1 applic TP BID [facility] Gabapentin (Neurontin -) 300 mg PO TID [facility] Last Admin: 09/06/18 13:55 Dose: 300 mg Patient's Own Medication_ Glatiramer 40mg/Ml 0 each PO MoWeFr@1000 [facility] Oxycodone HCl (Roxicodone -) 10 mg PO Q6H PRN PRN Reason: PAIN LEVEL 7 - 10 - Objective Vital Signs: Vital Signs Temperature 98.1 F 09/06/18 14:05 Pulse Rate 102 H 09/06/18 14:05 Respiratory Rate 18 09/06/18 14:05 Blood Pressure 131/92 09/06/18 14:05 O2 Sat by Pulse Oximetry (%) 97 09/06/18 02:00 Constitutional: Yes: Calm Cardiovascular: Yes: Regular Rate and Rhythm, S1, S2 Respiratory: Yes: CTA Bilaterally Labs: CBC, BMP 09/06/18 06:00 09/06/18 06:00
[2018-09-06] MEDS ORDERED: methylPREDNISolone NA SUCC 1000 MG/8 ML VIAL IVPB ONE (15:41)
--- NOTE | 2018-09-06 15:42 | PN ---
Progress Note, Physician Chief Complaint: patient seen and examined complaining of rash in groin and perineum area and antecubital fossa area - Current Medication List Current Medications: Active Medications Apixaban (Eliquis -) 5 mg PO BID [facility] Last Admin: 09/06/18 09:27 Dose: 5 mg Clotrimazole (Lotrimin 1% Cream -) 1 applic TP BID [facility] Gabapentin (Neurontin -) 300 mg PO TID [facility] Last Admin: 09/06/18 13:55 Dose: 300 mg Patient's Own Medication_ Glatiramer 40mg/Ml 0 each PO MoWeFr@1000 [facility] Oxycodone HCl (Roxicodone -) 10 mg PO Q6H PRN PRN Reason: PAIN LEVEL 7 - 10 - Objective Vital Signs: Vital Signs Temperature 98.1 F 09/06/18 14:05 Pulse Rate 102 H 09/06/18 14:05 Respiratory Rate 18 09/06/18 14:05 Blood Pressure 131/92 09/06/18 14:05 O2 Sat by Pulse Oximetry (%) 97 09/06/18 02:00 Constitutional: Yes: Calm Cardiovascular: Yes: Regular Rate and Rhythm, S1, S2 Respiratory: Yes: CTA Bilaterally Gastrointestinal: Yes: Normal Bowel Sounds, Soft Edema: No Integumentary: Yes: Rash (erythematous macular rash on antecubital fossa and scrotal area) Neurological: Yes: Alert, Oriented Labs: CBC, BMP 09/06/18 06:00 09/06/18 06:00 Problem List - Problems (1) Rash Assessment/Plan: clotrimazole and mycolog appreciate ID consult Code(s): R21 - RASH AND OTHER NONSPECIFIC SKIN ERUPTION (2) multiple sclerosis Assessment/Plan: copaxone solumedrol 1000mg daily for 3 days (3) Factor V Leiden Assessment/Plan: eliquis Code(s): D68.51 - ACTIVATED PROTEIN C RESISTANCE
[2018-09-06] MEDS ORDERED: METHYLPREDNISOLONE NA SUCC 1,000 MG in DEXTROSE 5%-WATER - 250 ML IVPB ONE (15:45)
--- NOTE | 2018-09-06 15:53 | CON.NEURO ---
Consult - Alcohol/Substance Use Hx Alcohol Use: No - Smoking History Smoking history: Former smoker Have you smoked in the past 12 months: No Aproximately how many cigarettes per day: 1 If you are a former smoker, when did you quit?: 1999 Home Medications - Allergies Allergies/Adverse Reactions: Allergies Allergy/AdvReac Type Severity Reaction Status Date / Time No Known Drug Allergies Allergy Unknown Verified 09/05/18 19:31 LIVER Allergy Hives Uncoded 09/05/18 19:31 - Home Medications Home Medications: Ambulatory Orders Gabapentin [Neurontin] 400 mg PO TID 10/14/17 Glatiramer Acetate [Copaxone (Nf) -] 40 mg SQ ASDIR 10/14/17 Apixaban [Eliquis -] 5 mg PO BID 08/29/18 Oxycodone HCl 10 mg PO QID PRN 08/29/18 Morphine *Sr* [Ms Contin -] 7.5 mg PO ASDIR PRN MDD 15 09/06/18 Family Disease History - Family Disease History Family Disease History: Diabetes: Mother, Heart Disease: Sister Physical Exam-Neuro Vital Signs: Vital Signs Temperature 98.1 F 09/06/18 14:05 Pulse Rate 102 H 09/06/18 14:05 Respiratory Rate 18 09/06/18 14:05 Blood Pressure 131/92 09/06/18 14:05 O2 Sat by Pulse Oximetry (%) 97 09/06/18 02:00 Labs: CBC, BMP 09/06/18 06:00 09/06/18 06:00 Assessment/Plan CC. MS flare up HPI 52 year old male history of MS, Poly substance abuse ( cocaine, opioid, alcohol), Bipolar disorder and Factor 5 Leiden deficiency . Patient is on eliquis for PE . He is admitted for skin rash and possible He complain of generalized weaknes,s electric shock like sensation on his head , blurring of vision and left side of body numb. Patient usually get one or two episode in a year and being treated by steroid and that helps. He was diagnosed with MS in 2004 and he was on copaxone for last 13 years. He denies any fever. There is no suspician for uti or cellulitis by primary . Patient is claustrophobic and waiting for mri with contrast as outpatient. He saw dr Castillo . PMH as above SH Smoking: Former Alcohol: Alcohol Dependence hx Drugs: Cocaine, Opioid Dependence hx Family History: Non- Contributory Allergies No Known Drug Allergies Allergy (Unknown, Verified 09/05/18 19:31) LIVER Allergy (Uncoded 09/05/18 19:31) Hives HOME MEDICATIONS: Home Medications Medication Instructions Recorded Gabapentin [Neurontin] 300 mg PO TID 10/14/17 Glatiramer Acetate [Copaxone (Nf) 20 mg SQ ASDIR 10/14/17 -] Acetaminophen [Tylenol .Regular 325 mg PO Q6H PRN tablet 10/18/17 Strength -] Ibuprofen 600 mg PO QID PRN #10 tablet 11/01/17 Apixaban [Eliquis -] 5 mg PO BID 08/29/18 Oxycodone HCl 10 mg PO QID PRN 08/29/18 ROS FH reviewed in chart NEUROLOGICAL Examination Alert oriented x 3, speech is normal, eomi, pupils reactive, vf normal by cnfrontation there is diminished facial sensation on left side 5/5 all extremity ataxic gait , and not been walking too much and uses walker at home FTN is normal diminished subjective senation on left arm and leg Mri of brain done in september [address] wa sunchanged Assessment/Plan suspect acute MS flare, cant get mri as he is claustrophobic Plan: IV solumedrol 1 gm for three days, if ok with primary , - he can be discharged home and follow up outpatient Thanking you so much Darian Figueroa MD
[2018-09-06] MEDS: GLATIRAMER 40 MG/ML PO SCH (17:33)
[2018-09-06] MEDS ORDERED: MORPHINE SULFATE 2 MG/ML VIAL ONE (20:25)
[2018-09-06] MEDS: CLOTRIMAZOLE 1% CREAM 15 GM TUBE TP SCH (22:00)
[2018-09-06] MEDS: NYSTATIN/TRIAMCINOLONE TOPICAL OINTMENT 15 GM TUBE TP SCH (22:00)
[2018-09-07] MEDS: MORPHINE SULFATE 2 MG/ML VIAL IVPUSH PRN ×3 (05:13→20:00)
[2018-09-07] MEDS: GABAPENTIN 300 MG CAPSULE (FP) PO SCH ×3 (05:14→21:23)
[2018-09-07] MEDS ORDERED: methylPREDNISolone NA SUCC 1000 MG/8 ML VIAL IVPB SCH (08:00)
[2018-09-07] MEDS ORDERED: PT OWN MED DRAWER 7, Y5N ONE ×2 (08:41→10:14)
[2018-09-07 09:01] LABS: BASO % 0.1 % (0-2.0); HEMATOCRIT 39.1 % (35.4-49); HEMOGLOBIN 12.7 GM/dL (11.7-16.9); LYMPH % 5.1 % (8-40); MCH 28.1 pg (25.7-33.7); MCHC 32.4 g/dl (32.0-35.9); MEAN CELL VOLUME 86.8 fl (80-96); MEAN PLT VOLUME 7.8 fl (7.5-11.1); MONO % 1.1 % (3.8-10.2); NEUT % 93.7 % (42.8-82.8); PLATELET COUNT 361 K/MM3 (134-434); RDW 17.4 % (11.9-15.9); WHITE BLOOD COUNT 14.4 K/mm3 (4.0-10.0)
[2018-09-07 09:30] LABS: ALBUMIN 3.4 g/dl (3.4-5.0); ALK PHOS 82 U/L (45-117); ANION GAP 6 MMOL/L (8-16); BILIRUBIN,TOTAL 0.4 mg/dL (0.2-1); BLOOD UREA NITROGEN 11 mg/dL (7-18); CALCIUM 8.9 mg/dL (8.5-10.1); CHLORIDE 108 mmol/L (98-107); CO2 21 mmol/L (21-32); CREATININE 1.1 mg/dL (0.55-1.3); GLUCOSE,RANDOM 157 mg/dL (74-106); POTASSIUM 4.3 mmol/L (3.5-5.1); SGOT/AST 43 U/L (15-37); SGPT/ALT 35 U/L (13-61); SODIUM 136 mmol/L (136-145); TOT PROT 7.7 g/dl (6.4-8.2)
[2018-09-07] MEDS: APIXABAN 5 MG TABLET PO SCH ×2 (09:44→21:22)
[2018-09-07] MEDS: CLOTRIMAZOLE 1% CREAM 15 GM TUBE TP SCH ×2 (10:42→21:23)
[2018-09-07] MEDS: METHYLPREDNISOLONE NA SUCC 1,000 MG in DEXTROSE 5%-WATER - 250 ML IVPB SCH (10:42)
[2018-09-07] MEDS: NYSTATIN/TRIAMCINOLONE TOPICAL OINTMENT 15 GM TUBE TP SCH ×2 (10:42→21:23)
--- NOTE | 2018-09-07 12:25 | PN ---
Progress Note, Physician - Current Medication List Current Medications: Active Medications Apixaban (Eliquis -) 5 mg PO BID [facility] Last Admin: 09/07/18 09:44 Dose: 5 mg Clotrimazole (Lotrimin 1% Cream -) 1 applic TP BID [facility] Last Admin: 09/07/18 10:42 Dose: 1 applic Gabapentin (Neurontin -) 300 mg PO TID [facility] Last Admin: 09/07/18 05:14 Dose: 300 mg Methylprednisolone Sodium (Succinate 1,000 mg/ Dextrose) 258 mls @ 86 mls/hr IVPB DAILY@0800 [facility] Stop: 09/08/18 10:59 Last Admin: 09/07/18 10:42 Dose: 86 mls/hr Morphine Sulfate (Morphine Sulfate) 2 mg IVPUSH Q6H PRN PRN Reason: PAIN LEVEL 7 - 10 Last Admin: 09/07/18 11:51 Dose: 2 mg Patient's Own Medication_ Glatiramer 40mg/Ml 0 each PO MoWeFr@1000 [facility] Last Admin: 09/06/18 17:33 Dose: 40 each Nystatin/Triamcinolone Acetonide (Mycolog Ii Ointment -) 1 applic TP BID [facility] Last Admin: 09/07/18 10:42 Dose: 1 applic - Objective Vital Signs: Vital Signs Temperature 97.8 F 09/07/18 11:45 Pulse Rate 119 H 09/07/18 11:45 Respiratory Rate 20 09/07/18 11:45 Blood Pressure 130/90 09/07/18 11:45 O2 Sat by Pulse Oximetry (%) 96 09/07/18 08:00 Cardiovascular: Yes: Regular Rate and Rhythm Respiratory: Yes: Regular, CTA Bilaterally Gastrointestinal: Yes: Normal Bowel Sounds, Soft Labs: CBC, BMP 09/07/18 08:00 09/07/18 08:00 Problem List - Problems (1) Multiple sclerosis exacerbation Assessment/Plan: copaxone solumedrol 1000mg daily for 3 days pt Code(s): G35 - MULTIPLE SCLEROSIS (2) Rash Assessment/Plan: clotrimazole and mycolog appreciate ID consult Code(s): R21 - RASH AND OTHER NONSPECIFIC SKIN ERUPTION (3) Factor V Leiden Assessment/Plan: on eliquis Code(s): D68.51 - ACTIVATED PROTEIN C RESISTANCE
[2018-09-07 13:41] LABS: ANISOCYTOSIS 2+; MACROCYTOSIS 1+; PLATELET ESTIMATE NORMAL; TARGET CELLS 1+
--- NOTE | 2018-09-07 15:52 | CON.CARD ---
Consult Consult Specialty:: cardiology Reason for Consultation:: sinus tachycardia - History of Present Illness History of Present Illness: 52 year old male history of MS, Poly substance abuse ( cocaine, opioid, alcohol ) but denies current use, Bipolar disorder and Factor 5 Leiden deficiency . Patient is on eliquis for PE which was diagnosed 6 months ago. 3 years ago had PCI without stenting for a positive stress test and chest pain. He is admitted for skin rash and multiple sclerosis exacerbation and is placed on steroids. He reports intermittent dyspnea. No chest pain, edema, orthopnea. - Alcohol/Substance Use Hx Alcohol Use: No - Smoking History Smoking history: Former smoker Have you smoked in the past 12 months: No Aproximately how many cigarettes per day: 1 If you are a former smoker, when did you quit?: 1999 Home Medications - Allergies Allergies/Adverse Reactions: Allergies Allergy/AdvReac Type Severity Reaction Status Date / Time No Known Drug Allergies Allergy Unknown Verified 09/05/18 19:31 LIVER Allergy Hives Uncoded 09/05/18 19:31 - Home Medications Home Medications: Ambulatory Orders Gabapentin [Neurontin] 400 mg PO TID 10/14/17 Glatiramer Acetate [Copaxone (Nf) -] 40 mg SQ ASDIR 10/14/17 Apixaban [Eliquis -] 5 mg PO BID 08/29/18 Oxycodone HCl 10 mg PO QID PRN 08/29/18 Morphine *Sr* [Ms Contin -] 7.5 mg PO ASDIR PRN MDD 15 09/06/18 Family Disease History - Family Disease History Family Disease History: Diabetes: Mother, Heart Disease: Sister Review of Systems - Review of Systems Constitutional: denies: Chills, Diaphoresis, Fever Eyes: reports: No Symptoms HENT: denies: Difficult Swallowing, Ear Discharge, Ear Pain Neck: reports: Decreased ROM Cardiovascular: reports: Shortness of Breath. denies: Chest Pain, Edema, Palpitations Respiratory: reports: Exercise Intolerance. denies: Cough Vital Signs: Vital Signs Temperature 98 F 09/07/18 14:36 Pulse Rate 123 H 09/07/18 14:36 Respiratory Rate 20 09/07/18 14:36 Blood Pressure 152/101 H 09/07/18 14:36 O2 Sat by Pulse Oximetry (%) 96 09/07/18 08:00 Constitutional: Yes: Well Nourished, No Distress Eyes: Yes: Conjunctiva Clear HENT: Yes: Atraumatic, Normocephalic Neck: Yes: Supple, Trachea Midline Respiratory: Yes: Regular, CTA Bilaterally Gastrointestinal: Yes: Normal Bowel Sounds, Soft Heart Sounds: Yes: S1, S2. No: S3, S4 Murmur: No: Systolic Murmur, Diastolic Murmur Edema: No - Other Data Labs, Other Data: CBC, BMP 09/07/18 08:00 09/07/18 08:[address] T changes. nl [place] Problem List - Problems (1) Sinus tachycardia Code(s): R00.0 - TACHYCARDIA, UNSPECIFIED Assessment/Plan previous ho CAD Factor 5 Leiden deff and PE on ELiquis and compliant with AC Multiple sclerosis exacerbation Previous drug dependence. Sinus tachycardia-asymptomatic. CXR Echo Metoprolol 25mg bid Utox Possibly related to steroids-multiple sclerosis.
[2018-09-07] MEDS ORDERED: METOPROLOL TARTRATE 25 MG TABLET (FP) PO ONE (19:07)
[2018-09-07] MEDS: ATORVASTATIN CA 20 MG TABLET (FP) PO SCH (21:23)
[2018-09-07] MEDS: METOPROLOL TARTRATE 25 MG TABLET (FP) PO SCH (21:23)
[2018-09-07 22:09] LABS: METHADONE, UR NEGATIVE ng/ml (CUTOFF=300); PHENCYCLIDINE,URINE NEGATIVE ng/ml (CUTOFF=25); URINE AMPHETAMINES NEGATIVE ng/ml (CUTOFF=500)
[2018-09-07 22:11] LABS: OPIATES, URI POSITIVE ng/ml (CUTOFF=300)
[2018-09-07 22:27] LABS: COCAINE, UR NEGATIVE ng/ml (CUTOFF=300); URINE BARBITURATES NEGATIVE ng/ml (CUTOFF=200); URINE BENZODIAZEPINES NEGATIVE ng/ml (CUTOFF=200)
[2018-09-08] MEDS: MORPHINE SULFATE 2 MG/ML VIAL IVPUSH PRN ×4 (03:02→23:12)
[2018-09-08] MEDS: GABAPENTIN 300 MG CAPSULE (FP) PO SCH ×3 (06:34→21:13)
[2018-09-08 08:59] LABS: CHOLESTEROL 183 mg/dL (50-200); HDL CHOLESTEROL 47 mg/dL (40-60); LDL CHOLESTEROL (ONLY DFH) 120 mg/dl (5-100); TRIGLYCERIDES 82 mg/dL (0-150)
[2018-09-08] MEDS: NYSTATIN/TRIAMCINOLONE TOPICAL OINTMENT 15 GM TUBE TP SCH ×2 (09:00→21:13)
[2018-09-08] MEDS: CLOTRIMAZOLE 1% CREAM 15 GM TUBE TP SCH ×2 (09:00→21:13)
[2018-09-08] MEDS: METOPROLOL TARTRATE 25 MG TABLET (FP) PO SCH ×2 (09:57→21:13)
[2018-09-08] MEDS: APIXABAN 5 MG TABLET PO SCH ×2 (09:57→21:13)
[2018-09-08] MEDS: METHYLPREDNISOLONE NA SUCC 1,000 MG in DEXTROSE 5%-WATER - 250 ML IVPB SCH (09:58)
[2018-09-08 11:43] LABS: RPR NONREACTIVE (NONREACTIVE)
--- NOTE | 2018-09-08 14:37 | PN ---
Progress Note, Physician - Current Medication List Current Medications: Active Medications Apixaban (Eliquis -) 5 mg PO BID [facility] Last Admin: 09/08/18 09:57 Dose: 5 mg Atorvastatin Calcium (Lipitor -) 20 mg PO HS [facility] Last Admin: 09/07/18 21:23 Dose: 20 mg Clotrimazole (Lotrimin 1% Cream -) 1 applic TP BID [facility] Last Admin: 09/08/18 09:00 Dose: 1 applic Gabapentin (Neurontin -) 300 mg PO TID [facility] Last Admin: 09/08/18 14:30 Dose: 300 mg Metoprolol Tartrate (Lopressor -) 25 mg PO BID [facility] Last Admin: 09/08/18 09:57 Dose: 25 mg Morphine Sulfate (Morphine Sulfate) 2 mg IVPUSH Q6H PRN PRN Reason: PAIN LEVEL 7 - 10 Last Admin: 09/08/18 09:58 Dose: 2 mg Patient's Own Medication_ Glatiramer 40mg/Ml 0 each PO MoWeFr@1000 [facility] Last Admin: 09/06/18 17:33 Dose: 40 each Nystatin/Triamcinolone Acetonide (Mycolog Ii Ointment -) 1 applic TP BID [facility] Last Admin: 09/08/18 09:00 Dose: 1 applic - Objective Vital Signs: Vital Signs Temperature 98.0 F 09/08/18 06:00 Pulse Rate 92 H 09/08/18 10:00 Respiratory Rate 18 09/08/18 10:00 Blood Pressure 122/70 09/08/18 10:00 O2 Sat by Pulse Oximetry (%) 95 09/08/18 09:00 Cardiovascular: Yes: S1, S2 Respiratory: Yes: Regular, CTA Bilaterally Gastrointestinal: Yes: Normal Bowel Sounds, Soft. No: Tenderness Labs: CBC, BMP 09/07/18 08:00 09/07/18 08:00 Problem List - Problems (1) Multiple sclerosis exacerbation Assessment/Plan: copaxone solumedrol 1000mg daily for 3 days pt Code(s): G35 - MULTIPLE SCLEROSIS (2) Rash Assessment/Plan: clotrimazole and mycolog appreciate ID consult Code(s): R21 - RASH AND OTHER NONSPECIFIC SKIN ERUPTION (3) Factor V Leiden Assessment/Plan: on eliquis Code(s): D68.51 - ACTIVATED PROTEIN C RESISTANCE
--- NOTE | 2018-09-08 15:34 | PN ---
Progress Note, Physician Chief Complaint: No events History of Present Illness: 52 year old male history of MS, Poly substance abuse ( cocaine, opioid, alcohol ) but denies current use, Bipolar disorder and Factor 5 Leiden deficiency . Patient is on eliquis for PE which was diagnosed 6 months ago. 3 years ago had PCI without stenting for a positive stress test and chest pain. He is admitted for skin rash and multiple sclerosis exacerbation and is placed on steroids. He reports intermittent dyspnea. No chest pain, edema, orthopnea. - Current Medication List Current Medications: Active Medications Apixaban (Eliquis -) 5 mg PO BID [facility] Last Admin: 09/08/18 09:57 Dose: 5 mg Atorvastatin Calcium (Lipitor -) 20 mg PO HS [facility] Last Admin: 09/07/18 21:23 Dose: 20 mg Clotrimazole (Lotrimin 1% Cream -) 1 applic TP BID [facility] Last Admin: 09/08/18 09:00 Dose: 1 applic Gabapentin (Neurontin -) 300 mg PO TID [facility] Last Admin: 09/08/18 14:30 Dose: 300 mg Metoprolol Tartrate (Lopressor -) 25 mg PO BID [facility] Last Admin: 09/08/18 09:57 Dose: 25 mg Morphine Sulfate (Morphine Sulfate) 2 mg IVPUSH Q6H PRN PRN Reason: PAIN LEVEL 7 - 10 Last Admin: 09/08/18 09:58 Dose: 2 mg Patient's Own Medication_ Glatiramer 40mg/Ml 0 each PO MoWeFr@1000 [facility] Last Admin: 09/06/18 17:33 Dose: 40 each Nystatin/Triamcinolone Acetonide (Mycolog Ii Ointment -) 1 applic TP BID [facility] Last Admin: 09/08/18 09:00 Dose: 1 applic - Objective Vital Signs: Vital Signs Temperature 98.6 F 09/08/18 14:12 Pulse Rate 88 09/08/18 14:12 Respiratory Rate 18 09/08/18 14:12 Blood Pressure 110/68 09/08/18 14:12 O2 Sat by Pulse Oximetry (%) 95 09/08/18 09:00 Constitutional: Yes: Well Nourished, No Distress Eyes: Yes: Conjunctiva Clear HENT: Yes: Atraumatic, Normocephalic Neck: Yes: Supple, Trachea Midline Cardiovascular: Yes: Regular Rate and Rhythm Respiratory: Yes: Regular, CTA Bilaterally Edema: No Labs: CBC, BMP 09/07/18 08:00 09/07/18 08:00 Problem List - Problems (1) Sinus tachycardia Code(s): R00.0 - TACHYCARDIA, UNSPECIFIED Assessment/Plan previous ho CAD Factor 5 Leiden deff and PE on ELiquis and compliant with AC Multiple sclerosis exacerbation Previous drug dependence. Sinus tachycardia-asymptomatic. Utox positive for Opiate Echo Possibly related to steroids-multiple sclerosis.
[2018-09-08] MEDS: ATORVASTATIN CA 20 MG TABLET (FP) PO SCH (21:13)
[2018-09-09] MEDS: MORPHINE SULFATE 2 MG/ML VIAL IVPUSH PRN ×2 (05:21→11:27)
[2018-09-09] MEDS: GABAPENTIN 300 MG CAPSULE (FP) PO SCH ×3 (05:21→21:51)
[2018-09-09] MEDS: APIXABAN 5 MG TABLET PO SCH ×2 (09:54→21:50)
[2018-09-09] MEDS: METOPROLOL TARTRATE 25 MG TABLET (FP) PO SCH ×2 (09:54→21:51)
[2018-09-09] MEDS ORDERED: PT OWN MED DRAWER 7, Y5N ONE (09:57)
[2018-09-09] MEDS: CLOTRIMAZOLE 1% CREAM 15 GM TUBE TP SCH ×2 (09:57→21:50)
[2018-09-09] MEDS: NYSTATIN/TRIAMCINOLONE TOPICAL OINTMENT 15 GM TUBE TP SCH ×2 (09:57→21:53)
[2018-09-09] MEDS: GLATIRAMER 40 MG/ML PO SCH (10:08)
--- NOTE | 2018-09-09 10:43 | EKG ---
Test Reason : Blood Pressure : / mmHG Vent. Rate : 112 BPM Atrial Rate : 112 BPM P-R Int : 164 ms QRS Dur : 086 ms QT Int : 334 ms P-R-T Axes : 050 041 013 degrees QTc Int : 455 ms SINUS TACHYCARDIA OTHERWISE NORMAL ECG WHEN COMPARED WITH ECG OF 06-SEP-2018 00:28, NO SIGNIFICANT CHANGE WAS FOUND Confirmed by PATSY CALDERÓN MD ([id number]) on 09/09/2018 10:42:48 AM Referred By: Confirmed By:PATSY CALDERÓN MD
--- NOTE | 2018-09-09 11:57 | ECHO ---
Name: CANDACE, MARLO Exam:Adult Echocardiogram Study Date: 09/09/2018 08:16 AM Age: 52 yrs Reason For Study: Tachycardia MMode/2D Measurements & Calculations IVSd: 1.1 cm ACS: 2.0 cm LVIDd: 4.2 cm LVIDs: 3.3 cm LVPWd: 1.2 cm EDV(Teich): 80.7 ml LVOT diam: 2.0 cm ESV(Teich): 43.3 ml RV S Mario: 15.1 cm/sec Doppler Measurements & Calculations MV E max mario: 95.6 cm/sec MV dec slope: 137.8 cm/sec2 MV A max mario: 90.7 cm/sec MV E/A: 1.1 Med Peak E' Mario: 16.4 cm/sec Med E/e': 5.8 Lat Peak E' Mario: 14.4 cm/sec Lat E/e': 6.7 Procedure A complete two-dimensional transthoracic echocardiogram was performed (2D, M-mode, Doppler and color flow Doppler). Left Ventricle The left ventricle is normal in size. Left ventricular systolic function is normal. Ejection Fraction = 60- 65%. No regional wall motion abnormalities noted. Right Ventricle The right ventricle is normal size. The right ventricular systolic function is normal. RV systolic TD I is 15 cm/s. Atria The left atrial size is normal. Right atrial size is normal. Mitral Valve There is mild mitral annular calcification. There is no mitral regurgitation noted. Tricuspid Valve The tricuspid valve is normal in structure and function. No tricuspid regurgitation. Aortic Valve The aortic valve is normal in structure and function. No aortic regurgitation is present. Pulmonic Valve The pulmonic valve is not well visualized. Great Vessels The aortic root is normal size. Pericardium/Pleura There is no pericardial effusion. Interpretation Summary The left ventricle is normal in size. Left ventricular systolic function is normal. No regional wall motion abnormalities noted. Ejection Fraction = 60-65%. The right ventricular systolic function is normal. The left atrial size is normal. Right atrial size is normal. There is mild mitral annular calcification. No significant valvular regurgitations There is no pericardial effusion. Previous study is not available for comparison Claude Jorge MD 09/09/2018 11:57 AM
--- NOTE | 2018-09-09 13:52 | DS ---
Physical Examination Vital Signs: Vital Signs Temperature 98.1 F 09/09/18 06:00 Pulse Rate 77 09/09/18 06:00 Respiratory Rate 18 09/09/18 06:00 Blood Pressure 136/79 09/09/18 06:00 O2 Sat by Pulse Oximetry (%) 95 09/09/18 01:00 Constitutional: Yes: Calm Neck: Yes: Trachea Midline Cardiovascular: Yes: Regular Rate and Rhythm, S1, S2 Respiratory: Yes: CTA Bilaterally Gastrointestinal: Yes: Normal Bowel Sounds, Soft Labs: CBC, BMP 09/07/18 08:00 09/07/18 08:00 Discharge Summary Reason For Visit: FACTOR V LEIDEN MUTATION,MULTIPLE SCLEROSIS Current Active Problems Multiple sclerosis exacerbation (Acute) Rash (Acute) Sinus tachycardia (Acute) Other Procedures: echo left ventricle size and systolic function is normal Hospital Course: CHIEF COMPLAINT: PCP: Dr. Mohsen Chapman HISTORY OF PRESENT ILLNESS: This is a 52 y/o man with a PMHx of MS, Polysubstance Abuse (Alcohol, Cocaine, Opioid, last detox 2016), Bipolar Disorder, and Factor V Leiden with PE (on Eliquis). Who presents to the ED with complaints of a rash. The patient states that he's had 1 week of cellulitis that is worsening and becoming increasingly pruritic. The patient states that since his last admission, he had a "red rash" which has worsened in itchiness and spread throughout his body. He states that he had a fever 3 days ago but denies current fever, chills, nausea, vomiting, CP , SOB. ER course was notable for: (1) ESR 38 admitted for mS exacerbtion got solumedrol for 3 days factor V ledien on eliquis Condition: Guarded - Instructions Referrals: Mohsen Chapman [Primary Care Provider] - Disposition: CARE HOME FACILITY - Home Medications Comprehensive Discharge Medication List: Ambulatory Orders Gabapentin [Neurontin] 400 mg PO TID 10/14/17 Glatiramer Acetate [Copaxone (Nf) -] 40 mg SQ ASDIR 10/14/17 Apixaban [Eliquis -] 5 mg PO BID 08/29/18 Oxycodone HCl 10 mg PO QID PRN 08/29/18 Morphine *Sr* [Ms Contin -] 7.5 mg PO ASDIR PRN MDD 15 09/06/18
[2018-09-09] MEDS: oxyCODONE HCL 5 MG TABLET PO PRN ×2 (18:08→23:59)
--- NOTE | 2018-09-09 19:19 | PN ---
Progress Note, Physician Chief Complaint: Patient appears comfortable at the time of exam. He has improved SOB and palpitation. No chest pain. History of Present Illness: 52 year old man with a history of MS, poly substance abuse ( cocaine, opioid, alcohol) but denies current use, bipolar disorder, CAD s/p PCI/stent for positive stress test 3 years ago and Factor 5 Leiden deficiency, PE on Eliquis for 6 months admitted for skin rash and multiple sclerosis exacerbation and is placed on steroids. He reports intermittent dyspnea. No chest pain, edema, orthopnea. Echo 09/09/2018: Normal LV size, wall motion and systolic function. LVEF = 60-65% . Normal RV size and function. Normal LA and RA in size. No significant valvular abnormality. - Current Medication List Current Medications: Active Medications Apixaban (Eliquis -) 5 mg PO BID [facility] Last Admin: 09/09/18 09:54 Dose: 5 mg Atorvastatin Calcium (Lipitor -) 20 mg PO HS [facility] Last Admin: 09/08/18 21:13 Dose: 20 mg Clotrimazole (Lotrimin 1% Cream -) 1 applic TP BID [facility] Last Admin: 09/09/18 09:57 Dose: 1 applic Gabapentin (Neurontin -) 300 mg PO TID [facility] Last Admin: 09/09/18 14:48 Dose: 300 mg Metoprolol Tartrate (Lopressor -) 25 mg PO BID [facility] Last Admin: 09/09/18 09:54 Dose: 25 mg Patient's Own Medication_ Glatiramer 40mg/Ml 0 each PO MoWeFr@1000 [facility] Last Admin: 09/09/18 10:08 Dose: 1 each Nystatin/Triamcinolone Acetonide (Mycolog Ii Ointment -) 1 applic TP BID [facility] Last Admin: 09/09/18 09:57 Dose: 1 applic Oxycodone HCl (Roxicodone -) 10 mg PO Q6H PRN PRN Reason: PAIN LEVEL 7 - 10 Last Admin: 09/09/18 18:08 Dose: 10 mg - Objective Vital Signs: Vital Signs Temperature 97.8 F 09/09/18 18:28 Pulse Rate 78 09/09/18 18:28 Respiratory Rate 20 09/09/18 18:28 Blood Pressure 120/66 09/09/18 18:28 O2 Sat by Pulse Oximetry (%) 95 09/09/18 09:00 General: Well developed. Well nourished. No acute distress. Head: Normocephalic. Atraumatic, Eyes: PERRLA, EOMI. Sclerae anicteric. Conjunctivae clear. Neck: Supple. No JVD. No bruits. Heart: Normal S1, S2: Regular rhythm and rate. No murmur. No gallop or rub. Lungs: Symmetrical air entry. Clear to auscultation. No crackle. No wheezing or rhonchi. Abdomen: Soft. Bowel sound positive. Non tender. No masses. Extremities: No edema. No clubbing or cyanosis. PD 2+, equal bilaterally. Neuro: Intact, no focal findings. AAO X3. Labs: CBC, BMP 09/07/18 08:00 09/07/18 08:00 Assessment/Plan 52 year old man with a history of MS, poly substance abuse ( cocaine, opioid, alcohol) but denies current use, bipolar disorder, CAD s/p PCI/stent for positive stress test 3 years ago and Factor 5 Leiden deficiency, PE on Eliquis for 6 months admitted for skin rash and multiple sclerosis exacerbation and is placed on steroids. He reports intermittent dyspnea. No chest pain, edema, orthopnea. Echo 09/09/2018: Normal LV size, wall motion and systolic function. LVEF = 60-65% . Normal RV size and function. Normal LA and RA in size. No significant valvular abnormality. 1) CAD: stable no recurrent angina. Continue metoprolol, atorvastatin. 2) Factor 5 Leiden deff and PE on ELiquis and compliant with AC Multiple sclerosis exacerbation Previous drug dependence. 3) Sinus tachycardia: improved with metoprolol 25 mg BID. 4) Dyspnea with normal echo and CXR. Non cardiac. Out-pt cardiac follow up.
[2018-09-09] MEDS: ATORVASTATIN CA 20 MG TABLET (FP) PO SCH (21:50)
[2018-09-10] MEDS: oxyCODONE HCL 5 MG TABLET PO PRN ×3 (06:38→20:46)
[2018-09-10] MEDS: GABAPENTIN 300 MG CAPSULE (FP) PO SCH ×3 (06:38→21:02)
[2018-09-10] MEDS: APIXABAN 5 MG TABLET PO SCH ×2 (09:48→21:02)
[2018-09-10] MEDS: CLOTRIMAZOLE 1% CREAM 15 GM TUBE TP SCH ×2 (09:48→21:02)
[2018-09-10] MEDS: METOPROLOL TARTRATE 25 MG TABLET (FP) PO SCH ×2 (09:48→21:02)
[2018-09-10] MEDS: NYSTATIN/TRIAMCINOLONE TOPICAL OINTMENT 15 GM TUBE TP SCH ×2 (09:48→21:05)
--- NOTE | 2018-09-10 16:12 | PN ---
Progress Note, Physician Chief Complaint: Cellulitis MS History of Present Illness: Previous notes and events reviewed awake and alert NAD patient is pending authorization for SNF placement - Current Medication List Current Medications: Active Medications Apixaban (Eliquis -) 5 mg PO BID [facility] Last Admin: 09/10/18 09:48 Dose: 5 mg Atorvastatin Calcium (Lipitor -) 20 mg PO HS [facility] Last Admin: 09/09/18 21:50 Dose: 20 mg Clotrimazole (Lotrimin 1% Cream -) 1 applic TP BID [facility] Last Admin: 09/10/18 09:48 Dose: 1 applic Gabapentin (Neurontin -) 300 mg PO TID [facility] Last Admin: 09/10/18 14:04 Dose: 300 mg Metoprolol Tartrate (Lopressor -) 25 mg PO BID [facility] Last Admin: 09/10/18 09:48 Dose: 25 mg Patient's Own Medication_ Glatiramer 40mg/Ml 0 each PO MoWeFr@1000 [facility] Last Admin: 09/09/18 10:08 Dose: 1 each Nystatin/Triamcinolone Acetonide (Mycolog Ii Ointment -) 1 applic TP BID [facility] Last Admin: 09/10/18 09:48 Dose: 1 applic Oxycodone HCl (Roxicodone -) 10 mg PO Q6H PRN PRN Reason: PAIN LEVEL 7 - 10 Last Admin: 09/10/18 12:32 Dose: 10 mg - Objective Vital Signs: Vital Signs Temperature 98.2 F 09/10/18 13:59 Pulse Rate 71 09/10/18 13:59 Respiratory Rate 17 09/10/18 13:59 Blood Pressure 128/72 09/10/18 13:59 O2 Sat by Pulse Oximetry (%) 100 09/10/18 09:00 Constitutional: Yes: No Distress, Calm Eyes: Yes: Conjunctiva Clear HENT: Yes: Atraumatic Cardiovascular: Yes: Regular Rate and Rhythm Respiratory: Yes: Regular, CTA Bilaterally Gastrointestinal: Yes: Normal Bowel Sounds, Soft, Other (non tender) Musculoskeletal: Yes: Muscle Weakness Extremities: Yes: WNL Edema: No Neurological: Yes: Alert, Oriented Psychiatric: Yes: Alert, Oriented Labs: CBC, BMP 09/07/18 08:00 09/07/18 08:00 Liberty Hawkins - Last Filed: 09/10/18 16:08> - Current Medication List Current Medications: Active Medications Apixaban (Eliquis -) 5 mg PO BID [facility] Last Admin: 09/10/18 21:02 Dose: 5 mg Atorvastatin Calcium (Lipitor -) 20 mg PO HS [facility] Last Admin: 09/10/18 21:02 Dose: 20 mg Clotrimazole (Lotrimin 1% Cream -) 1 applic TP BID [facility] Last Admin: 09/10/18 21:02 Dose: 1 applic Gabapentin (Neurontin -) 300 mg PO TID [facility] Last Admin: 09/11/18 05:48 Dose: 300 mg Metoprolol Tartrate (Lopressor -) 25 mg PO BID [facility] Last Admin: 09/10/18 21:02 Dose: 25 mg Patient's Own Medication_ Glatiramer 40mg/Ml 0 each PO MoWeFr@1000 [facility] Last Admin: 09/09/18 10:08 Dose: 1 each Nystatin/Triamcinolone Acetonide (Mycolog Ii Ointment -) 1 applic TP BID [facility] Last Admin: 09/10/18 21:05 Dose: 1 applic Oxycodone HCl (Roxicodone -) 10 mg PO Q6H PRN PRN Reason: PAIN LEVEL 7 - 10 Last Admin: 09/10/18 20:46 Dose: 10 mg - Objective Vital Signs: Vital Signs Temperature 98.6 F 09/11/18 06:00 Pulse Rate 75 09/11/18 06:00 Respiratory Rate 18 09/11/18 06:00 Blood Pressure 120/75 09/11/18 06:00 O2 Sat by Pulse Oximetry (%) 100 09/10/18 21:00 Labs: CBC, BMP 09/07/18 08:00 09/07/18 08:00 <Neftali Diaz - Last Filed: 09/11/18 08:59> Problem List - Problems (1) Multiple sclerosis exacerbation Assessment/Plan: -continue with copaxone -completed solumedrol course -discharge to SNF for PT Code(s): G35 - MULTIPLE SCLEROSIS (2) Rash Assessment/Plan: -continue with clotrimazole and mycolog -ID on board Code(s): R21 - RASH AND OTHER NONSPECIFIC SKIN ERUPTION (3) Factor V Leiden Assessment/Plan: -continue with eliquis Code(s): D68.51 - ACTIVATED PROTEIN C RESISTANCE <Liberty Miller - Last Filed: 09/10/18 16:08> Assessment/Plan see problem list dvt ppx <Liberty Miller - Last Filed: 09/10/18 16:08> PATIENT SEEN AND EXAMINED AND I AGREE WITH ABOVE NOTE <Neftali Diaz - Last Filed: 09/11/18 08:59>
[2018-09-10 16:31] LABS: PARV B19 IGG 3.8 index (0.0-0.8); PARV B19 IGM 0.2 index (0.0-0.8)
[2018-09-10] MEDS ORDERED: PT OWN MED DRAWER 7, Y5N ONE (20:56)
[2018-09-10] MEDS: ATORVASTATIN CA 20 MG TABLET (FP) PO SCH (21:02)
[2018-09-11] MEDS: GABAPENTIN 300 MG CAPSULE (FP) PO SCH (05:48)
[2018-09-11 07:18] VITALS: TEMP 98.6
--- NOTE | 2018-09-11 09:12 | PN ---
Progress Note (short form) - Note Progress Note: PATIENT HAS A BED AT [facility] FOR SNF HOWEVER HE REFUSES TO GO THERE. I CALLED HIS PRIMARY DOCTOR BOBBI CHU WHO RECOMMENDED [facility] AND PATIENT DECLINED THAT FACILITY ALSO. HE WANTS TO GO HOME WITH [facility]. F/U PMD TOMORROW
--- NOTE | 2018-09-11 09:13 | DS ---
Physical Examination Vital Signs: Vital Signs Temperature 98.6 F 09/11/18 06:00 Pulse Rate 75 09/11/18 06:00 Respiratory Rate 18 09/11/18 06:00 Blood Pressure 120/75 09/11/18 06:00 O2 Sat by Pulse Oximetry (%) 100 09/10/18 21:00 Findings/Remarks: REFUSING SNF WANTS TO GO HOME Constitutional: Yes: No Distress Cardiovascular: Yes: WNL Respiratory: Yes: WNL Gastrointestinal: Yes: WNL Renal/: Yes: WNL Musculoskeletal: Yes: Muscle Weakness (CHRONIC LEG WEAKNESS) Edema: No Labs: CBC, BMP 09/07/18 08:00 09/07/18 08:00 Discharge Summary Reason For Visit: FACTOR V LEIDEN MUTATION,MULTIPLE SCLEROSIS Current Active Problems Multiple sclerosis exacerbation (Acute) Rash (Acute) Sinus tachycardia (Acute) Condition: Stable - Instructions Diet, Activity, Other Instructions: SEE DR CHAPMAN IN [facility] 10AM TOMORROW RETURN TO ED IF YOU FEEL WEAKNESS INCREASES OR CHEST PAIN AND HEADACHES Referrals: Mohsen Chapman [Primary Care Provider] - Disposition: [facility]/HOME HEALTH CARE - Home Medications Comprehensive Discharge Medication List: Ambulatory Orders Gabapentin [Neurontin] 400 mg PO TID 10/14/17 Glatiramer Acetate [Copaxone (Nf) -] 40 mg SQ ASDIR 10/14/17 Apixaban [Eliquis -] 5 mg PO BID 08/29/18 Oxycodone HCl 10 mg PO QID PRN 08/29/18 Morphine *Sr* [Ms Contin -] 7.5 mg PO ASDIR PRN MDD 15 09/06/18 Clotrimazole [Lotrimin -] 1 applic TP BID #1 tube MDD 2 09/09/18 Nystatin/Triamcinolone Top Oin [Mycolog II -] 1 applic TP BID #1 tube MDD 2 05/20
[2018-09-11] MEDS: NYSTATIN/TRIAMCINOLONE TOPICAL OINTMENT 15 GM TUBE TP SCH (09:28)
[2018-09-11] MEDS: APIXABAN 5 MG TABLET PO SCH (09:28)
[2018-09-11] MEDS: METOPROLOL TARTRATE 25 MG TABLET (FP) PO SCH (09:28)
[2018-09-11] MEDS: CLOTRIMAZOLE 1% CREAM 15 GM TUBE TP SCH (09:28)
[2018-09-11 09:49] VITALS: BP 148/88; PULSE 80
== END 2018-09-11 10:10 | disposition home health service (06) | DRG 43 ==
LOC: JER 18:30 → JERBED 21:15 → J5S 09-06 01:51 → OBSVTOIN 09-09 08:02
PROVIDERS: ADMIT Family Medicine; ATTEND Family Medicine
DX: G35 Multiple sclerosis (principal); R21 Rash and other nonspecific skin eruption; F10.10 Alcohol abuse, uncomplicated; F14.10 Cocaine abuse, uncomplicated; F11.10 Opioid abuse, uncomplicated; F31.9 Bipolar disorder, unspecified; R00.0 Tachycardia, unspecified; D68.51 Activated protein C resistance; D68.2 Hereditary deficiency of other clotting factors; I25.10 Atherosclerotic heart disease of native coronary artery without angina pectoris; Z98.61 Coronary angioplasty status
CPT/HCPCS: 36415; 71046-TC-FY; 72193-TC; 80048; 80053; 80061; 80307; 81003; 82550; 84443; 84484; 85025; 85651; 86593; 86747; 87389; 93005; 93010; 93306-TC; 97116-GP; 97162-GP; 99282-25; G0378

== ENCOUNTER 2019-03-02 16:31 | Inpatient (IN) | payer OTHER ==
--- NOTE | 2019-03-02 17:07 | PDOC ---
History of Present Illness - General Chief Complaint: Pain Stated Complaint: CHEST PAINS/NECK PAINS Time Seen by Provider: 03/02/19 17:03 History Source: Patient - History of Present Illness Initial Comments: 53 y/o/m with PMHx of MS, factor V Leiden mutation here for chest and neck pain that started this morning. He states he woke up this morning with chest pain and numbness on his left side. He complains of associated palpitations, mild sweating, SOB, pain with deep breathes, and lightheadedness today. He states the chest pain is left sided and radiates to his left arm and up his neck. He had 2-3 episodes of diarrhea today. He states the numbness in left arm and leg are new onset today. He was hospitalized 2 weeks ago at [facility] in [place] for stroke symptoms and was kept there for 1 week. 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 He was previously on Elliquis for his Factor V Leiden mutation but as he was still clotting he was switched to Coumadin and Lovenox. He has been taking his Coumadin and his last INR was 1.1 two days ago but has not been able to take Lovenox due to insurance issues. He denies any nausea, vomiting, abd pain, headache, fever, cough, or dysuria. Medical Hx: MS, Factor V Leiden mutation Surgical Hx: surgery for a removal of a lipoma from his chest Medications: Coumadin, Percocet, Morphine, Neurontin Allergies: eggs Social Hx: admits to past alcohol and tobacco use, denies any current use. Denies any illicit substance use Past History - Past Medical History Allergies/Adverse Reactions: Allergies Allergy/AdvReac Type Severity Reaction Status Date / Time egg Allergy Unknown Hives Verified 03/02/19 16:41 No Known Drug Allergies Allergy Unknown Verified 03/02/19 16:41 LIVER Allergy Hives Uncoded 03/02/19 16:41 Home Medications: Ambulatory Orders RX: Gabapentin [Neurontin] 400 mg PO TID 10/14/17 RX: Oxycodone HCl 20 mg PO Q6H PRN 08/29/18 RX: Morphine *Sr* [Ms Contin -] 15 mg PO Q4H PRN MDD 15 09/06/18 Enoxaparin Sodium [Lovenox] 80 mg SQ ACHS 03/02/19 Warfarin Sodium [Coumadin] 5 mg PO HS 03/02/19 Anemia: No Asthma: No Cancer: No Cardiac Disorders: No CVA: Yes (2017, 01/2019) COPD: No CHF: No Dementia: No Diabetes: No GI Disorders: No Disorders: No HTN: Yes Hypercholesterolemia: No Kidney Stones: No Liver Disease: No Seizures: No Thyroid Disease: No Other medical history: multiple sclerosis, factor 5, clot in carodid - Surgical History Abdominal Surgery: No Appendectomy: No Cardiac Surgery: No Cholecystectomy: No Lung Surgery: No Neurologic Surgery: No Orthopedic Surgery: Yes (ARTHROSCOPIC SX R KNEE 09/2008 IN [facility]) - Reproductive History Testicular Surgery: No - Suicide/Smoking/Psychosocial Hx Smoking History: Never smoked Have you smoked in the past 12 months: No Number of Cigarettes Smoked Daily: 1 If you are a former smoker, when did you quit?: 1999 'Breaking Loose' booklet given: 05/04/17 Hx Alcohol Use: No Drug/Substance Use Hx: No Substance Use Type: None Hx Substance Use Treatment: Yes Review of Systems - Review of Systems Able to Perform ROS?: Yes Constitutional: Yes: Diaphoresis, Weakness HEENTM: No: Nose Congestion Respiratory: Yes: Shortness of Breath. No: Cough Cardiac (ROS): Yes: Chest Pain, Lightheadedness, Palpitations. No: Syncope ABD/GI: Yes: Diarrhea. No: Abdominal Distended, Constipated, Nausea, Vomiting : No: Dysuria, Hematuria Musculoskeletal: No: Back Pain Integumentary: No: Rash Neurological: Yes: Headache, Numbness. No: Seizure Psychiatric: No: Anxiety *Physical Exam - Vital Signs Last Vital Signs Temp Pulse Resp BP Pulse Ox 97.5 F L 93 H 18 155/89 97 03/02/19 16:33 03/02/19 16:33 03/02/19 16:33 03/02/19 16:33 03/02/19 16:33 - Physical Exam General Appearance: Yes: Nourished HEENT: positive: EOMI, Photophobia Neck: positive: Supple. negative: Carotid bruit Respiratory/Chest: positive: Chest Tender (tenderness to palpation along sternum ) Cardiovascular: positive: Regular Rhythm, Regular Rate, S1, S2. negative: JVD Gastrointestinal/Abdominal: positive: Normal Bowel Sounds, Soft. negative: Guarding Musculoskeletal: negative: CVA Tenderness Extremity: positive: Normal Capillary Refill. negative: Swelling Integumentary: positive: Normal Color, Dry. negative: Swelling Neurologic: positive: multi share program coordinator II-XII NML intact, Fully Oriented, Alert, Motor Strength 5/5, Other (ataxia noted on finger to nose movement. Decreased sensation on left face, arm, and leg. ) Heart Score/ECG Review #1 General ECG Interpretation: Sinus Rhythm 03/02/19 18:53 vent rate: 86 bpm UT interval: 170 ms QRS duration: 102 ms QT/QTc: 380/454 P-R-T axes: 42 58 23 Normal sinus rhythm No acute ischemic changes ED Treatment Course - LABORATORY CBC & Chemistry Diagram: 03/03/19 05:10 03/03/19 05:10 Medical Decision Making - Medical Decision Making 03/02/19 18:55 53 y/o/m with PMHx of MS, factor V Leiden mutation here for chest and neck pain that started this morning. He states he woke up this morning with chest pain and numbness on his left side. Patient was admitted at [facility] in [place] for stroke symptoms 2 weeks ago. d/c 1 week ago. Told he had a clot in his heart and 50% occlusion of an artery in his neck. Currently on Coumadin. Stroke vs. MS flare Stroke workup ordered. EKG reviewed, normal sinus rhythm, no acute ischemic changes. 03/02/19 19:08 CBC grossly normal. Waiting on CMP, coags, CT scan reads. Patient signed out to night team, Dr. Courtney. *DC/Admit/Observation/Transfer Diagnosis at time of Disposition: Chest pain - Referrals - Patient Instructions - Post Discharge Activity
--- NOTE | 2019-03-02 18:33 | PDOC ---
Documentation entered by Jean-Paul Norton SCRIBE, acting as scribe for Cookie Thomas MD. Cookie Thomas MD: This documentation has been prepared by the Cierra galdamez Nirvannie, SCRIBE, under my direction and personally reviewed by me in its entirety. I confirm that the documentation accurately reflects all work, treatment, procedures, and medical decision making performed by me. Attending Attestation - Resident Resident Name: Ayanna Alexander - ED Attending Attestation I have performed the following: I have examined & evaluated the patient, The case was reviewed & discussed with the resident, I agree w/resident's findings & plan - HPI HPI: 03/02/19 17:54 53-year-old male who presents with a complaint of left sided numbness to his arms and legs that is new since since waking up this morning. He also has complaint of chest and neck pain. Currently, the pain in his chest is 6 out of 10 histories hospitalization for stroke at [facility] on [place] His INR 2 days ago was 1.1 He was told that he had 50% occlusion of his carotid artery. He does have a history of factor Leiden V deficiency and recently was switched from eliquis to Coumadin - Physicial Exam PE: 03/02/19 17:57 03/02/19 18:09 wnwd 53 yo male head ncat eyes carmella eomi neck supple, no jvd, no appreciable bruits lungs cta b/l cvs [id number] abd protuberant,no rebound skin warm and dry neuro axox3, uses walker when walking ,has chronic weakness in both legs and on exam 3/5 strength, upper extremities 5/5,b/l, + dysmetria on LUE, dtr in legs +2,c/o chronic tingling and numbness finger tips and feet 03/02/19 18:33 - Medical Decision Making 03/02/19 18:[address] scan head/ekg/cxr/cbc/cmp/trop, admission 03/02/19 18:36 ekg is nsr with no ischemia, no chages in ekg compared to prior 09/09/18 study also he had an ECHO done here 09/09/18 with normal LV size and function,no regional wall motion abnormalities,EF 60-65% 03/02/19 19:21 labs reviewed and cbc is unremarkable negative troponin chemistries unremarkable sub therapeutic INR=1.63 03/02/19 21:29 ct scan brain no acute infarcts or bleed, findings c/w mutliple sclerosis 03/02/19 21:32 we will have the patient sign to give permission for release of his medical records from his recent hospitalization in [place] 03/02/19 21:34 pt will be admitted to telemetry for chest pain
[2019-03-02 18:44] LABS: BASO % 0.7 % (0-2.0); EOS % 2.4 % (0-4.5); LYMPH % 20.6 % (8-40); MCH 28.7 pg (25.7-33.7); MCHC 32.7 g/dl (32.0-35.9); MEAN CELL VOLUME 87.9 fl (80-96); MONO % 9.7 % (3.8-10.2); NEUT % 66.6 % (42.8-82.8); PLATELET COUNT 352 K/MM3 (134-434); RBC 4.55 M/mm3 (4.00-5.60); RDW 17.1 % (11.9-15.9); WHITE BLOOD COUNT 8.1 K/mm3 (4.0-10.0)
[2019-03-02 19:03] LABS: INR 1.62 (0.83-1.09); PROTHROMBIN TIME (PATIENT) 19.2 SEC (9.7-13.0)
[2019-03-02 19:12] LABS: ALBUMIN 3.7 g/dl (3.4-5.0); BILIRUBIN,TOTAL 0.5 mg/dL (0.2-1); BLOOD UREA NITROGEN 14.8 mg/dL (7-18); CALCIUM 9.1 mg/dL (8.5-10.1); CREATININE 0.8 mg/dL (0.55-1.3); TOT PROT 7.6 g/dl (6.4-8.2)
[2019-03-02] MEDS: SODIUM CHLORIDE 1,000 ML IV SCH (19:41)
--- NOTE | 2019-03-02 20:34 | PDOC ---
*Physical Exam - Vital Signs Last Vital Signs Temp Pulse Resp BP Pulse Ox 97.5 F L 93 H 18 155/89 96 03/02/19 16:33 03/02/19 16:33 03/02/19 16:33 03/02/19 16:33 03/02/19 17:51 - Physical Exam Comments: Patient was signed out to me by Dr. Alexander. From sign out, the patient is a 53 yo m with a hx of MS, factor V leiden mutation presenting to the emergency department for chest and neck pain that began this morning. At the time of sign out, labs were pending as well as CT scans. ED Treatment Course - LABORATORY CBC & Chemistry Diagram: 03/08/19 05:26 03/03/19 05:10 - ADDITIONAL ORDERS Additional order review: Laboratory Results 03/02/19 03/02/19 03/02/19 18:15 18:15 18:15 PT with INR 19.20 H INR 1.62 H Sodium 141 Potassium 4.0 Chloride 106 Carbon Dioxide 29 Anion Gap 6 L BUN 14.8 Creatinine 0.8 Est GFR (CKD-EPI)AfAm 118.20 Est GFR (CKD-EPI)NonAf 101.99 Random Glucose 82 Calcium 9.1 Total Bilirubin 0.5 AST 29 ALT 58 Alkaline Phosphatase 79 Creatine Kinase Troponin I Total Protein 7.6 Albumin 3.7 Triglycerides 140 Cholesterol 162 Total LDL Cholesterol 91 HDL Cholesterol 50 Blood Type A POSITIVE Antibody Screen Negative 03/02/19 18:15 PT with INR INR Sodium Potassium Chloride Carbon Dioxide Anion Gap BUN Creatinine Est GFR (CKD-EPI)AfAm Est GFR (CKD-EPI)NonAf Random Glucose Calcium Total Bilirubin AST ALT Alkaline Phosphatase Creatine Kinase 76 Troponin I < 0.02 Total Protein Albumin Triglycerides Cholesterol Total LDL Cholesterol HDL Cholesterol Blood Type Antibody Screen 03/02/19 18:15 RBC 4.55 MCV 87.9 MCHC 32.7 RDW 17.1 H MPV 8.0 Neutrophils % 66.6 D Lymphocytes % 20.6 D Monocytes % 9.7 D Eosinophils % 2.4 D Basophils % 0.7 D Medical Decision Making - Medical Decision Making 03/09/19 13:36 Laboratory Tests 03/02/19 03/02/19 03/02/19 18:15 18:15 18:15 WBC 8.1 RBC 4.55 Hgb 13.0 Hct 40.0 MCV 87.9 MCH 28.7 MCHC 32.7 RDW 17.1 H Plt Count 352 MPV 8.0 Absolute Neuts (auto) 5.4 Neutrophils % 66.6 D Lymphocytes % 20.6 D Monocytes % 9.7 D Eosinophils % 2.4 D Basophils % 0.7 D Nucleated RBC % 0 PT with INR INR Sodium 141 Potassium 4.0 Chloride 106 Carbon Dioxide 29 Anion Gap 6 L BUN 14.8 Creatinine 0.8 Est GFR (CKD-EPI)AfAm 118.20 Est GFR (CKD-EPI)NonAf 101.99 Random Glucose 82 Calcium 9.1 Total Bilirubin 0.5 AST 29 ALT 58 Alkaline Phosphatase 79 Creatine Kinase 76 Troponin I < 0.02 Total Protein 7.6 Albumin 3.7 Triglycerides 140 Cholesterol 162 Total LDL Cholesterol 91 HDL Cholesterol 50 Blood Type Antibody Screen 03/02/19 03/02/19 18:15 18:15 WBC RBC Hgb Hct MCV MCH MCHC RDW Plt Count MPV Absolute Neuts (auto) Neutrophils % Lymphocytes % Monocytes % Eosinophils % Basophils % Nucleated RBC % PT with INR 19.20 H INR 1.62 H Sodium Potassium Chloride Carbon Dioxide Anion Gap BUN Creatinine Est GFR (CKD-EPI)AfAm Est GFR (CKD-EPI)NonAf Random Glucose Calcium Total Bilirubin AST ALT Alkaline Phosphatase Creatine Kinase Troponin I Total Protein Albumin Triglycerides Cholesterol Total LDL Cholesterol HDL Cholesterol Blood Type A POSITIVE Antibody Screen Negative troponin was negative and INR is subtherapeutic. CT head was negative for acute infarcts or bleed. chronic findings consistent with MS. Patient to be admitted to [facility] for chest pain. Dispo; Admit *DC/Admit/Observation/Transfer Diagnosis at time of Disposition: Chest pain - Referrals - Patient Instructions - Post Discharge Activity
[2019-03-02] MEDS ORDERED: ASPIRIN 81 MG CHEWABLE TABLETS PO ONE (21:34)
[2019-03-02] MEDS ORDERED: ASPIRIN 325 MG TABLET ONE (22:59)
[2019-03-02] MEDS ORDERED: MORPHINE SULFATE 2 MG/ML VIAL IM ONE (23:36)
[2019-03-02] MEDS ORDERED: HEPARIN NA (PORCINE) 5,000 UNITS/ML 1ML VIAL IVPUSH PRN ×2 (23:37)
--- NOTE | 2019-03-02 23:58 | HP ---
CHIEF COMPLAINT: left sided chest pain with numbness to left upper arm and leg with decreased sensation PCP:Dr. Summers Neurologist: Dr. Pabon (in [place] HISTORY OF PRESENT ILLNESS: 53 year old male with history of multiple sclerosis for 18 years, factor 5 mutation and coronary artery disease with balloon angioplasty in 2017 who presents with symptoms of left sided chest pain with numbness to his left upper arm and lower leg and new decreased left leg sensation. He reports he was at [facility] in [place] and was hospitalized in the ICU setting for 3 days and found to have a stroke, carotid artery stenosis with a 50 % lesion to unknown side as per patient and by TTE with bubble study found to have a PFO and thrombus. He reports he was placed Eliquis but failed therapy due to him clotting and he was started on Coumadin therapy for INR goal of 3.0 as per patient. Upon evaluation in the ER he was found to have a normal troponin, EKG with a normal sinus rhythm, no signs of acute ischemia, no evidence of atrial fibrillation on telemetry.INR 1.67. Chest pain is reproducible on palpation. CT scan of head with no hemorrhage, stroke not excluded. Recent Travel: denies PAST MEDICAL HISTORY: multiple sclerosis for 18 years factor 5 mutation coronary artery disease with balloon angioplasty in 2017 carotid stenosis PAST SURGICAL HISTORY: denies Social History: Smoking:former smoker Alcohol:denied Drugs:denied Family History: noncontributory Allergies egg Allergy (Unknown, Verified 03/02/19 16:41) Hives pt reports allergy No Known Drug Allergies Allergy (Unknown, Verified 03/02/19 16:41) LIVER Allergy (Uncoded 03/02/19 16:41) Hives HOME MEDICATIONS: Home Medications Medication Instructions Recorded Gabapentin [Neurontin] 400 mg PO TID 10/14/17 Oxycodone HCl 20 mg PO Q6H PRN 08/29/18 Morphine *Sr* [Ms Contin -] 15 mg PO Q4H PRN MDD 15 09/06/18 Enoxaparin Sodium [Lovenox] 80 mg SQ ACHS 03/02/19 Warfarin Sodium [Coumadin] 5 mg PO HS 03/02/19 REVIEW OF SYSTEMS CONSTITUTIONAL: Absent: fever, chills, diaphoresis, generalized weakness, malaise, loss of appetite, weight change HEENT: Absent: rhinorrhea, nasal congestion, throat pain, throat swelling, difficulty swallowing, mouth swelling, ear pain, eye pain, visual changes CARDIOVASCULAR: Absent: chest pain, syncope, palpitations, irregular heart rate, lightheadedness , peripheral edema RESPIRATORY: Absent: cough, shortness of breath, dyspnea with exertion, orthopnea, wheezing, stridor, hemoptysis GASTROINTESTINAL: Absent: abdominal pain, abdominal distension, nausea, vomiting, diarrhea, constipation, melena, hematochezia GENITOURINARY: Absent: dysuria, frequency, urgency, hesitancy, hematuria, flank pain, genital pain MUSCULOSKELETAL: Absent: myalgia, arthralgia, joint swelling, back pain, neck pain SKIN: Absent: rash, itching, pallor HEMATOLOGIC/IMMUNOLOGIC: Absent: easy bleeding, easy bruising, lymphadenopathy, frequent infections ENDOCRINE: Absent: unexplained weight gain, unexplained weight loss, heat intolerance, cold intolerance NEUROLOGIC: Absent: headache, focal weakness left sided paresthesia, decreased sensation to LLE ,bilateral upper and lower extremity weakness, dizziness, unsteady gait , seizure, mental status changes, bladder or bowel incontinence PSYCHIATRIC: Absent: anxiety, depression, suicidal or homicidal ideation, hallucinations. PHYSICAL EXAMINATION Vital Signs - 24 hr 03/02/19 03/02/19 03/02/19 16:33 17:51 23:27 Temperature 97.5 F L Pulse Rate 93 H Pulse Rate [ 91 H Left Brachial] Respiratory 18 18 Rate Blood Pressure 155/89 Blood Pressure 146/81 [Left Arm] O2 Sat by Pulse 97 96 97 Oximetry (%) GENERAL: awake, alert, and fully oriented no acute distress HEAD: normal EYES: pupils equal, round and reactive to light, extraocular movements intact EARS, NOSE, THROAT: ears normal, nares patent, oropharynx clear without exudates moist mucous membranes NECK: normal range of motion, supple LUNGS: breath sounds equal and clear to auscultation bilaterally no wheezes and no crackles no accessory muscle use HEART: regular rate and rhythm normal S1 and S2 without ABDOMEN: soft nontender not distended normoactive bowel sounds MUSCULOSKELETAL: limited range of motion UPPER EXTREMITIES: 2+ pulses warm well-perfused no cyanosis no peripheral edema LOWER EXTREMITIES: 2+ pulses, warm, well-perfused. No calf tenderness. No peripheral edema. NEUROLOGICAL: decreased sensation to LLE, bilateral upper and lower extremity weakness normal speech no facial grimace or droop PSYCHIATRIC: cooperative good eye contact appropriate mood and affect SKIN: warm dry normal turgor no rashes or lesions noted normal capillary refill. Laboratory Results - last 24 hr 03/02/19 03/02/19 03/02/19 18:15 18:15 18:15 WBC 8.1 RBC 4.55 Hgb 13.0 Hct 40.0 MCV 87.9 MCH 28.7 MCHC 32.7 RDW 17.1 H Plt Count 352 MPV 8.0 Absolute Neuts (auto) 5.4 Neutrophils % 66.6 D Lymphocytes % 20.6 D Monocytes % 9.7 D Eosinophils % 2.4 D Basophils % 0.7 D Nucleated RBC % 0 PT with INR INR Sodium 141 Potassium 4.0 Chloride 106 Carbon Dioxide 29 Anion Gap 6 L BUN 14.8 Creatinine 0.8 Est GFR (CKD-EPI)AfAm 118.20 Est GFR (CKD-EPI)NonAf 101.99 Random Glucose 82 Calcium 9.1 Total Bilirubin 0.5 AST 29 ALT 58 Alkaline Phosphatase 79 Creatine Kinase 76 Troponin I < 0.02 Total Protein 7.6 Albumin 3.7 Triglycerides 140 Cholesterol 162 Total LDL Cholesterol 91 HDL Cholesterol 50 Blood Type Antibody Screen 03/02/19 03/02/19 18:15 18:15 WBC RBC Hgb Hct MCV MCH MCHC RDW Plt Count MPV Absolute Neuts (auto) Neutrophils % Lymphocytes % Monocytes % Eosinophils % Basophils % Nucleated RBC % PT with INR 19.20 H INR 1.62 H Sodium Potassium Chloride Carbon Dioxide Anion Gap BUN Creatinine Est GFR (CKD-EPI)AfAm Est GFR (CKD-EPI)NonAf Random Glucose Calcium Total Bilirubin AST ALT Alkaline Phosphatase Creatine Kinase Troponin I Total Protein Albumin Triglycerides Cholesterol Total LDL Cholesterol HDL Cholesterol Blood Type A POSITIVE Antibody Screen Negative ASSESSMENT/PLAN: 53 year old male with history of multiple sclerosis for 18 years, factor 5 mutation and coronary artery disease with balloon angioplasty in 2017 who presented with symptoms of left sided chest pain with numbness to his left upper arm and lower leg and new decreased left leg sensation. #1 Atypical Chest Pain/Hx of CAD Chest pain is reproducible on palpation. EKG with no signs of acute ischemia. First troponin is normal. Continue to trend troponins Asa and statin added Cardiology consulted for evaluation , had recent diagnosis of PFO and thrombus in setting of stroke #[address] scan of head with no hemorrhage, stroke not excluded. INR is subtherapeutic at 1.67. Patient with new decreased lower extremity sensation. Continuous IV heparin gtt initiated Added baby aspirin and atorvastatin MRA ordered Continue to monitor on telemetry , no evidence of atrial fibrillation noted Neurology consulted #3 Factor V Mutation Hematology consulted- Dr. Gan #4 Multiple Sclerosis Neurology consulted Continue gabapentin Visit type - Emergency Visit Emergency Visit: Yes ED Registration Date: 03/02/19 Care time: The patient presented to the Emergency Department on the above date and was hospitalized for further evaluation of their emergent condition. - New Patient This patient is new to me today: Yes Date on this admission: 03/03/19 - Critical Care Critical Care patient: No
[2019-03-03] MEDS ORDERED: MORPHINE SULFATE 2 MG/ML VIAL ONE (00:45)
[2019-03-03] MEDS ORDERED: HEPARIN INFUSION - 25,000 UNITS/500 ML INFUS.BAG IVPB ONE (00:45)
[2019-03-03 02:50] LABS: URINE APPEARANCE CLEAR; URINE BILIRUBIN NEGATIVE (NEGATIVE); URINE COLOR YELLOW; URINE GLUCOSE (UA) NEGATIVE (NEGATIVE); URINE KETONE NEGATIVE (NEGATIVE)
[2019-03-03 02:51] LABS: PH,URINE 6.5 (5.0-8.0); URINE LEUK ESTERASE NEGATIVE (NEGATIVE); URINE NITRITE NEGATIVE (NEGATIVE); URINE PROTEIN NEGATIVE (NEGATIVE)
[2019-03-03 02:52] LABS: EPI CELLS 0.2 /HPF (0-5/HPF); HYALINE CASTS 1.5 /lpf (0-8); URINE BACTERIA 1.7 /hpf (NEGATIVE); URINE RBC 0.5 /hpf (0-4); URINE WBC 0.2 /hpf (0-5)
[2019-03-03] MEDS: HEPARIN INFUSION - 25,000 UNITS/500 ML INFUS.BAG IVPB SCH (03:13)
[2019-03-03] MEDS ORDERED: oxyCODONE HCL 5 MG TABLET PO ONE ×2 (03:19→13:15)
[2019-03-03 04:04] VITALS: BMI 29.8
[2019-03-03] MEDS: GABAPENTIN 400 MG CAPSULE (FP) PO SCH ×3 (05:46→21:19)
[2019-03-03 06:45] LABS: HEMATOCRIT 34.6 % (35.4-49); HEMOGLOBIN 11.4 GM/dL (11.7-16.9); MCH 28.5 pg (25.7-33.7); MCHC 32.9 g/dl (32.0-35.9); MEAN CELL VOLUME 86.6 fl (80-96); PLATELET COUNT 295 K/MM3 (134-434); RDW 17.4 % (11.9-15.9); WHITE BLOOD COUNT 7.1 K/mm3 (4.0-10.0)
[2019-03-03 06:58] LABS: INR 1.5 (0.83-1.09); PROTHROMBIN TIME (PATIENT) 17.8 SEC (9.7-13.0)
[2019-03-03 07:16] LABS: ANION GAP 8 MMOL/L (8-16); BLOOD UREA NITROGEN 10.2 mg/dL (7-18); CALCIUM 8.5 mg/dL (8.5-10.1); CHLORIDE 106 mmol/L (98-107); CHOLESTEROL 140 mg/dL (50-200); CO2 27 mmol/L (21-32); CREATININE 0.7 mg/dL (0.55-1.3); GLUCOSE,RANDOM 80 mg/dL (74-106); POTASSIUM 3.8 mmol/L (3.5-5.1); SODIUM 141 mmol/L (136-145)
[2019-03-03 07:20] LABS: ACTIVATED PTT 49.2 SECONDS (25.2-36.5)
--- NOTE | 2019-03-03 09:08 | EKG ---
Test Reason : Blood Pressure : / mmHG Vent. Rate : 078 BPM Atrial Rate : 078 BPM P-R Int : 176 ms QRS Dur : 088 ms QT Int : 378 ms P-R-T Axes : 018 042 003 degrees QTc Int : 430 ms POOR DATA QUALITY, INTERPRETATION MAY BE ADVERSELY AFFECTED NORMAL SINUS RHYTHM MINIMAL VOLTAGE CRITERIA FOR LVH, MAY BE NORMAL VARIANT BORDERLINE ECG WHEN COMPARED WITH ECG OF 07-SEP-2018 15:18, NO SIGNIFICANT CHANGE WAS FOUND Confirmed by ANA ROSA GLOVER MD ([id number]) on 03/03/2019 9:08:13 AM Referred By: Confirmed By:ANA ROSA GLOVER MD
--- NOTE | 2019-03-03 09:26 | CON.CARD ---
Consult Consult Specialty:: Cardiology - History of Present Illness History of Present Illness: 53 year old male with history of multiple sclerosis for 18 years, factor 5 mutation and coronary artery disease with balloon angioplasty in 2017 who presents with symptoms of left sided chest pain with numbness to his left upper arm and lower leg and new decreased left leg sensation. He reports he was at [facility] in [place] and was hospitalized in the ICU setting for 3 days and found to have a stroke, carotid artery stenosis with a 50 % lesion to unknown side as per patient and by TTE with bubble study found to have a PFO and thrombus. He reports he was placed Eliquis but failed therapy due to him clotting and he was started on Coumadin therapy for INR goal of 3.0 as per patient. Upon evaluation in the ER he was found to have a normal troponin, EKG with a normal sinus rhythm, no signs of acute ischemia, no evidence of atrial fibrillation on telemetry.INR 1.67. Chest pain is reproducible on palpation. CT scan of head with no hemorrhage, stroke not excluded. - History Source History Provided By: Patient, Medical Record - Alcohol/Substance Use Hx Alcohol Use: No - Smoking History Smoking history: Never smoked Have you smoked in the past 12 months: No Aproximately how many cigarettes per day: 1 If you are a former smoker, when did you quit?: 1999 Home Medications - Allergies Allergies/Adverse Reactions: Allergies Allergy/AdvReac Type Severity Reaction Status Date / Time egg Allergy Unknown Hives Verified 03/02/19 16:41 No Known Drug Allergies Allergy Unknown Verified 03/02/19 16:41 LIVER Allergy Hives Uncoded 03/02/19 16:41 - Home Medications Home Medications: Ambulatory Orders RX: Gabapentin [Neurontin] 400 mg PO TID 10/14/17 RX: Oxycodone HCl 20 mg PO Q6H PRN 08/29/18 RX: Morphine *Sr* [Ms Contin -] 15 mg PO Q4H PRN MDD 15 09/06/18 Enoxaparin Sodium [Lovenox] 80 mg SQ ACHS 03/02/19 Warfarin Sodium [Coumadin] 5 mg PO HS 03/02/19 Family Disease History - Family Disease History Family Disease History: Diabetes: Mother, Heart Disease: Sister Review of Systems - Review of Systems Constitutional: reports: No Symptoms Eyes: reports: No Symptoms HENT: reports: No Symptoms Neck: reports: No Symptoms Cardiovascular: reports: No Symptoms Gastrointestinal: reports: No Symptoms Genitourinary: reports: No Symptoms Breasts: reports: No Symptoms Reported Musculoskeletal: reports: No Symptoms Integumentary: reports: No Symptoms Neurological: reports: No Symptoms Endocrine: reports: No Symptoms Hematology/Lymphatic: reports: No Symptoms Psychiatric: reports: No Symptoms Vital Signs: Vital Signs Temperature 97.9 F 03/03/19 06:00 Pulse Rate 80 03/03/19 06:00 Respiratory Rate 20 03/03/19 09:00 Blood Pressure 109/67 03/03/19 06:00 O2 Sat by Pulse Oximetry (%) 96 03/03/19 09:00 Constitutional: Yes: Well Nourished, No Distress, Calm Eyes: Yes: WNL, Conjunctiva Clear, EOM Intact HENT: Yes: WNL, Atraumatic, Normocephalic Neck: Yes: WNL, Supple, Trachea Midline Respiratory: Yes: WNL, Regular, CTA Bilaterally Gastrointestinal: Yes: WNL, Normal Bowel Sounds Renal/: Yes: WNL Cardiovascular: Yes: WNL, Regular Rate and Rhythm Musculoskeletal: Yes: WNL Extremities: Yes: WNL Integumentary: Yes: WNL Neurological: Yes: WNL, Alert, Oriented ...Motor Strength: WNL Psychiatric: Yes: WNL, Alert, Oriented - Other Data Labs, Other Data: CBC, BMP 03/03/19 05:10 03/03/19 05:10 INR, PTT INR 1.50 (0.83-1.09) H 03/03/19 05:10 Troponin, BNP 03/02/19 18:15 Troponin I < 0.02 Troponin, BNP 03/02/19 18:15 Troponin I < 0.02 Imaging - Results EKG: Image Reviewed (nsr lvh) Assessment/Plan multiple sclerosis for 18 years, factor 5 mutation and coronary artery disease with balloon angioplasty in 2017 who presents with symptoms of left sided chest pain with numbness to his left upper arm and lower leg and new decreased left leg sensation. r/o cva r/o tia Plan cont AC with heparin coumadin obtain old records from prior hospitalization and w/u of ASD/PFO
[2019-03-03] MEDS ORDERED: ACETAMINOPHEN 325 MG TABLET (FP) ONE (09:58)
[2019-03-03] MEDS: ASPIRIN 81 MG CHEWABLE TABLETS PO SCH ×2 (10:04→10:05)
--- NOTE | 2019-03-03 11:33 | PN ---
Progress Note, Physician History of Present Illness: 53 year old male with history of multiple sclerosis for 18 years, factor 5 mutation and coronary artery disease with balloon angioplasty in 2017 who presents with symptoms of left sided chest pain with numbness to his left upper arm and lower leg and new decreased left leg sensation. He reports he was at [facility] in [place] and was hospitalized in the ICU setting for 3 days and found to have a stroke, carotid artery stenosis with a 50 % lesion to unknown side as per patient and by TTE with bubble study found to have a PFO and thrombus. He reports he was placed Eliquis but failed therapy due to him clotting and he was started on Coumadin therapy for INR goal of 3.0 as per patient. Upon evaluation in the ER he was found to have a normal troponin, EKG with a normal sinus rhythm, no signs of acute ischemia, no evidence of atrial fibrillation on telemetry.INR 1.67. Chest pain is reproducible on palpation. CT scan of head with no hemorrhage, stroke not excluded. - Current Medication List Current Medications: Active Medications Aspirin (Asa -) 81 mg PO DAILY [facility] Last Admin: 03/03/19 10:05 Dose: Not Given Atorvastatin Calcium (Lipitor -) 40 mg PO HS AIYANA Gabapentin (Neurontin -) 400 mg PO TID [facility] Last Admin: 03/03/19 05:46 Dose: 400 mg Sodium Chloride (Normal Saline -) 1,000 mls @ 42 mls/hr IV ASDIR [facility] Last Admin: 03/02/19 19:41 Dose: 42 mls/hr Heparin Sodium/Dextrose (Heparin Infusion -) 25,000 units in 500 mls @ 20 mls/ hr IVPB TITR [facility]; Protocol Last Titration: 03/03/19 10:26 Dose: 1,100 units/hr, 22 mls/hr - Objective Vital Signs: Vital Signs Temperature 98.3 F 03/03/19 09:24 Pulse Rate 79 03/03/19 09:24 Respiratory Rate 20 03/03/19 09:24 Blood Pressure 149/82 03/03/19 09:24 O2 Sat by Pulse Oximetry (%) 96 03/03/19 09:00 Cardiovascular: Yes: Regular Rate and Rhythm, Murmur Respiratory: Yes: Regular, CTA Bilaterally Gastrointestinal: Yes: Normal Bowel Sounds, Soft Labs: CBC, BMP 03/03/19 05:10 03/03/19 05:10 INR, PTT INR 1.50 (0.83-1.09) H 03/03/19 05:10 Problem List - Problems (1) Thrombus in heart chamber Assessment/Plan: -OBTAIN RECORDS FROM [facility]PAR[facility] DRIP Code(s): I51.3 - INTRACARDIAC THROMBOSIS, NOT ELSEWHERE CLASSIFIED (2) CVA (cerebral vascular accident) Assessment/Plan: BY HISTORY OBTAIN RECORDS NEURO Code(s): I63.9 - CEREBRAL INFARCTION, UNSPECIFIED (3) Numbness and tingling in left arm Assessment/Plan: MRI OBTAIN OLD RECORDS HEPARIN DRIP Code(s): R20.0 - ANESTHESIA OF SKIN; R20.2 - PARESTHESIA OF SKIN (4) Chest pain Assessment/Plan: FOLLOW CE Code(s): R07.9 - CHEST PAIN, UNSPECIFIED
--- NOTE | 2019-03-03 13:40 | CON.NEURO ---
Consult - History of Present Illness History of Present Illness: 53 year old male with history of multiple sclerosis for 18 years (very poor outpt follow up ), factor 5 mutation and coronary artery disease with balloon angioplasty in 2017 who presents with symptoms of left sided chest pain with numbness to his left upper arm and lower leg and new decreased left leg sensation. He reports he was at [facility] in [place] and was hospitalized in the ICU setting for 3 days and found to have a "stroke"- -though states whole body was affected, carotid artery stenosis with a 50% lesion to unknown side as per patient and by TTE with bubble study found to have a PFO and thrombus. He reports he was placed Eliquis but failed therapy due to him clotting and he was started on Coumadin therapy for INR goal of 3.0 as per patient. Upon evaluation in the ER he was found to have a normal troponin, EKG with a normal sinus rhythm, no signs of acute ischemia, no evidence of atrial fibrillation on telemetry.INR 1.67. Chest pain is reproducible on palpation. CT scan of head with no hemorrhage, stroke not excluded. - Alcohol/Substance Use Hx Alcohol Use: No - Smoking History Smoking history: Never smoked Have you smoked in the past 12 months: No Aproximately how many cigarettes per day: 1 If you are a former smoker, when did you quit?: 1999 Home Medications - Allergies Allergies/Adverse Reactions: Allergies Allergy/AdvReac Type Severity Reaction Status Date / Time egg Allergy Unknown Hives Verified 03/02/19 16:41 No Known Drug Allergies Allergy Unknown Verified 03/02/19 16:41 LIVER Allergy Hives Uncoded 03/02/19 16:41 - Home Medications Home Medications: Ambulatory Orders Gabapentin [Neurontin] 400 mg PO TID 10/14/17 Oxycodone HCl 20 mg PO Q6H PRN 08/29/18 Morphine *Sr* [Ms Contin -] 15 mg PO Q4H PRN MDD 15 09/06/18 Enoxaparin Sodium [Lovenox] 80 mg SQ ACHS 03/02/19 Warfarin Sodium [Coumadin] 5 mg PO HS 03/02/19 Family Disease History - Family Disease History Family Disease History: Diabetes: Mother, Heart Disease: Sister Physical Exam-Neuro Vital Signs: Vital Signs Temperature 98.3 F 03/03/19 09:24 Pulse Rate 79 03/03/19 09:24 Respiratory Rate 20 03/03/19 09:24 Blood Pressure 149/82 03/03/19 09:24 O2 Sat by Pulse Oximetry (%) 96 03/03/19 09:00 Labs: CBC, BMP 03/03/19 05:10 03/03/19 05:10 INR, PTT INR 1.50 (0.83-1.09) H 03/03/19 05:10 - Neuro Exam Level Of Consciousness: Yes: Alert, Oriented to Person (EOMI, no facial, motor 5 /5, reflxes symmetric ) Problem List - Problems (1) CVA (cerebral vascular accident) Code(s): I63.9 - CEREBRAL INFARCTION, UNSPECIFIED Assessment/Plan ASSESSMENT/PLAN: 53 year old male with history of multiple sclerosis for 18 years (poor FU as outpt), factor 5 mutation and coronary artery disease with balloon angioplasty in 2017 who presented with symptoms of left sided chest pain with numbness to his left upper arm and lower leg and new decreased left leg sensation. He is poor HX and tangential with his complaints, unclear if he had stroke last week-- need to see records vs MS attack vs other ( ? opioid dependence the issue --as he visits many different hospitals) now comes in for left sided CP and numbness left arm and leg MRI BRAIN repeat FU records can restart copaxone carotid stenosis if has states 50%--NTD AC for factor V deficiency consider limiteding opioids --addiction medicine consult DR KILPATRICK
--- NOTE | 2019-03-03 14:48 | CONSULT ---
Consultation: REQUESTING PROVIDER: Dr. Granados CONSULT REQUEST: We have been asked to medically evaluate this patient for Factor V Leiden HISTORY OF PRESENT ILLNESS: 53 year old male with a reported history of multiple sclerosis diagnosed 18 years ago, factor V leiden, coronary artery disease s/p angioplasty in 2017 presented to the hospital for 1 day of left sided, pressure-like chest pain with associated numbness to the left upper arm and left leg and difficulty breathing. Patient is a poor historian and frequently changes his history throughout our conversation. He had been taking eliquis for factor V leiden up until around 1 week ago. He states that he was recently discharged from [facility] in [place] where he was seen in the ICU for stroke (reported his presenting symptoms were syncopal episodes). He was told he had a 50% stenosis of carotid arteries and was discharged on coumadin. States that he only took two doses since that discharge prior to arriving to our hospital. Currently reports weakness in b/l upper and lower extremities with mild chest pain and decreased sensation in his left leg. Denies any bleeding. Reports that he had multiple strokes in the past with PE in the [place] diagnosed in 2017. States that his typical MS flares include leg weakness, numbness and tingling in his fingers and right eye spasms. Also associated flares with blurry vision. Alcohol: denies Smoking: quit 30 years ago Drug use: none Surgeries: lipomas on chest and b/l arms resected Occupation: former [employer] employee Colonoscopy: 2017, found polyps, was told to get second colonoscopy within 3 years Family History: father with factor V Leiden and lupus, 5 children, 1 daughter with factor V Leiden, sister with "heart problem" REVIEW OF SYSTEMS: CONSTITUTIONAL: Absent: fever, chills, diaphoresis, generalized weakness, malaise, loss of appetite, weight change HEENT: Absent: rhinorrhea, nasal congestion, throat pain, throat swelling, difficulty swallowing, mouth swelling, ear pain, eye pain, visual changes CARDIOVASCULAR: chest pain Absent:syncope, palpitations, irregular heart rate, lightheadedness, peripheral edema RESPIRATORY: Absent: cough, shortness of breath, dyspnea with exertion, orthopnea, wheezing, stridor, hemoptysis GASTROINTESTINAL: Absent: abdominal pain, abdominal distension, nausea, vomiting, diarrhea, constipation, melena, hematochezia GENITOURINARY: Absent: dysuria, frequency, urgency, hesitancy, hematuria, flank pain, genital pain MUSCULOSKELETAL: Absent: myalgia, arthralgia, joint swelling, back pain, neck pain SKIN: Absent: rash, itching, pallor HEMATOLOGIC/IMMUNOLOGIC: Absent: easy bleeding, easy bruising, lymphadenopathy, frequent infections ENDOCRINE: Absent: unexplained weight gain, unexplained weight loss, heat intolerance, cold intolerance NEUROLOGIC: focal weakness or paresthesias Absent: headache, dizziness, unsteady gait, seizure, mental status changes, bladder or bowel incontinence PSYCHIATRIC: Absent: anxiety, depression, suicidal or homicidal ideation, hallucinations. PHYSICAL EXAMINATION Vital Signs - 24 hr 03/02/19 03/02/19 03/02/19 16:33 17:51 23:27 Temperature 97.5 F L Pulse Rate 93 H Pulse Rate [ 91 H Left Brachial] Respiratory 18 18 Rate Blood Pressure 155/89 Blood Pressure 146/81 [Left Arm] O2 Sat by Pulse 97 96 97 Oximetry (%) 03/03/19 03/03/19 03/03/19 03:44 06:00 09:00 Temperature 98.4 F 97.9 F Pulse Rate 79 80 Pulse Rate [ Left Brachial] Respiratory 20 20 20 Rate Blood Pressure 147/94 109/67 Blood Pressure [Left Arm] O2 Sat by Pulse 99 96 Oximetry (%) 03/03/19 03/03/19 09:24 14:03 Temperature 98.3 F 98.3 F Pulse Rate 79 90 Pulse Rate [ Left Brachial] Respiratory 20 20 Rate Blood Pressure 149/82 146/84 Blood Pressure [Left Arm] O2 Sat by Pulse Oximetry (%) GENERAL: A&Ox3 no acute distress HEAD: Normal with no signs of trauma. EYES: PERRL, EOMI ENT: Moist mucus membranes NECK: No JVD, no lymphadenopathy CHEST: breast exam without nodularity or masses, surgical site noted on mid- chest s/p lipoma resection LUNGS: CTA, no wheezes or rhonchi HEART: RRR no murmurs ABDOMEN: soft, nontender to palpation EXTREMITIES: 2+ pulses, no edema GENITOURINARY: testicular exam normal, no testicular lesions or masses noted NEUROLOGICAL: Motor strength 3/5 b/l upper and lower extremities, decreased sensation in LLE, CN II-XII intact, no dysmetria PSYCHIATRIC: Tangential thinking Laboratory Results - last 24 hr 03/02/19 03/02/19 03/02/19 18:15 18:15 18:15 WBC 8.1 RBC 4.55 Hgb 13.0 Hct 40.0 MCV 87.9 MCH 28.7 MCHC 32.7 RDW 17.1 H Plt Count 352 MPV 8.0 Absolute Neuts (auto) 5.4 Neutrophils % 66.6 D Lymphocytes % 20.6 D Monocytes % 9.7 D Eosinophils % 2.4 D Basophils % 0.7 D Nucleated RBC % 0 PT with INR INR PTT (Actin FS) Sodium 141 Potassium 4.0 Chloride 106 Carbon Dioxide 29 Anion Gap 6 L BUN 14.8 Creatinine 0.8 Est GFR (CKD-EPI)AfAm 118.20 Est GFR (CKD-EPI)NonAf 101.99 Random Glucose 82 Calcium 9.1 Total Bilirubin 0.5 AST 29 ALT 58 Alkaline Phosphatase 79 Creatine Kinase 76 Troponin I < 0.02 Total Protein 7.6 Albumin 3.7 Triglycerides 140 Cholesterol 162 Total LDL Cholesterol 91 HDL Cholesterol 50 Urine Color Urine Appearance Urine pH Ur Specific Keeler Urine Protein Urine Glucose (UA) Urine Ketones Urine Blood Urine Nitrite Urine Bilirubin Urine Urobilinogen Ur Leukocyte Esterase Urine WBC (Auto) Urine RBC (Auto) Urine Casts (Auto) U Epithel Cells (Auto) Urine Bacteria (Auto) Blood Type Antibody Screen 03/02/19 03/02/19 03/03/19 18:15 18:15 01:41 WBC RBC Hgb Hct MCV MCH MCHC RDW Plt Count MPV Absolute Neuts (auto) Neutrophils % Lymphocytes % Monocytes % Eosinophils % Basophils % Nucleated RBC % PT with INR 19.20 H INR 1.62 H PTT (Actin FS) Sodium Potassium Chloride Carbon Dioxide Anion Gap BUN Creatinine Est GFR (CKD-EPI)AfAm Est GFR (CKD-EPI)NonAf Random Glucose Calcium Total Bilirubin AST ALT Alkaline Phosphatase Creatine Kinase Troponin I Total Protein Albumin Triglycerides Cholesterol Total LDL Cholesterol HDL Cholesterol Urine Color Yellow Urine Appearance Clear Urine pH 6.5 Ur Specific Keeler 1.066 H Urine Protein Negative Urine Glucose (UA) Negative Urine Ketones Negative Urine Blood Negative Urine Nitrite Negative Urine Bilirubin Negative Urine Urobilinogen 1.0 Ur Leukocyte Esterase Negative Urine WBC (Auto) 0.2 Urine RBC (Auto) 0.5 Urine Casts (Auto) 1.5 U Epithel Cells (Auto) 0.2 Urine Bacteria (Auto) 1.7 Blood Type A POSITIVE Antibody Screen Negative 03/03/19 03/03/19 03/03/19 01:47 05:10 05:10 WBC 7.1 RBC 4.00 Hgb 11.4 L Hct 34.6 L MCV 86.6 MCH 28.5 MCHC 32.9 RDW 17.4 H Plt Count 295 MPV 8.0 Absolute Neuts (auto) Neutrophils % Lymphocytes % Monocytes % Eosinophils % Basophils % Nucleated RBC % PT with INR 17.80 H INR 1.50 H PTT (Actin FS) 36.6 H 49.2 H Sodium Potassium Chloride Carbon Dioxide Anion Gap BUN Creatinine Est GFR (CKD-EPI)AfAm Est GFR (CKD-EPI)NonAf Random Glucose Calcium Total Bilirubin AST ALT Alkaline Phosphatase Creatine Kinase Troponin I Total Protein Albumin Triglycerides Cholesterol Total LDL Cholesterol HDL Cholesterol Urine Color Urine Appearance Urine pH Ur Specific Keeler Urine Protein Urine Glucose (UA) Urine Ketones Urine Blood Urine Nitrite Urine Bilirubin Urine Urobilinogen Ur Leukocyte Esterase Urine WBC (Auto) Urine RBC (Auto) Urine Casts (Auto) U Epithel Cells (Auto) Urine Bacteria (Auto) Blood Type Antibody Screen 03/03/19 05:10 WBC RBC Hgb Hct MCV MCH MCHC RDW Plt Count MPV Absolute Neuts (auto) Neutrophils % Lymphocytes % Monocytes % Eosinophils % Basophils % Nucleated RBC % PT with INR INR PTT (Actin FS) Sodium 141 Potassium 3.8 Chloride 106 Carbon Dioxide 27 Anion Gap 8 BUN 10.2 Creatinine 0.7 Est GFR (CKD-EPI)AfAm 124.87 Est GFR (CKD-EPI)NonAf 107.74 Random Glucose 80 Calcium 8.5 Total Bilirubin AST ALT Alkaline Phosphatase Creatine Kinase Troponin I < 0.02 Total Protein Albumin Triglycerides Cholesterol 140 Total LDL Cholesterol HDL Cholesterol Urine Color Urine Appearance Urine pH Ur Specific Keeler Urine Protein Urine Glucose (UA) Urine Ketones Urine Blood Urine Nitrite Urine Bilirubin Urine Urobilinogen Ur Leukocyte Esterase Urine WBC (Auto) Urine RBC (Auto) Urine Casts (Auto) U Epithel Cells (Auto) Urine Bacteria (Auto) Blood Type Antibody Screen Active Medications Generic Name Dose Route Start Last Admin Trade Name Freq PRN Reason Stop Dose Admin Aspirin 81 mg 03/03/19 10:00 03/03/19 10:05 Asa - PO Not Given DAILY [facility] Atorvastatin Calcium 40 mg 03/03/19 22:00 Lipitor - PO HS AIYANA Gabapentin 400 mg 03/03/19 06:00 03/03/19 13:05 Neurontin - PO 400 mg TID AIYANA Administration Sodium Chloride 1,000 mls @ 42 mls/hr 03/02/19 18:00 03/02/19 19:41 Normal Saline - IV 42 mls/hr ASDIR AIYANA Administration Heparin Sodium/Dextrose 25,000 units in 500 mls @ 20 mls/hr 03/02/19 23:45 10:26 Heparin Infusion - IVPB 1,100 units/hr TITR AIYANA 22 mls/hr Titration Protocol 1,000 UNITS/HR ASSESSMENT/PLAN: 53 year old male with a reported history of multiple sclerosis diagnosed 18 years ago, factor V leiden, coronary artery disease s/p angioplasty in 2017 presented to the hospital for 1 day of left sided, pressure-like chest pain with associated numbness to the left upper arm and left leg and difficulty breathing #Factor V Leiden: patient had previously been on eliquis and was allegedly transitioned to warfarin recently at [facility]; patient presented to the hospital with a subtherapeutic INR. It is unclear to me based on the patient's history about the certainty of his diagnosis and the reasons behind his multiple hospital admissions. Doubt coumadin failure, low INR likely a result of non-compliance vs. short duration of therapy -would repeat INR in the morning -currently on heparin ggt, transition to coumadin. Will need lifelong anticoagulation -would get pharmacist to appropriately dose patient's coumadin and likely restart the coumadin in the morning Buddy Neville D.O., PGY-[address] Gan Visit type - Emergency Visit Emergency Visit: No - New Patient This patient is new to me today: Yes Date on this admission: 03/03/19 - Critical Care Critical Care patient: No ATTENDING PHYSICIAN STATEMENT I saw and evaluated the patient. I reviewed the resident's note and discussed the case with the resident. I agree with the resident's findings and plan as documented. SUBJECTIVE: OBJECTIVE: ASSESSMENT AND PLAN:
--- NOTE | 2019-03-03 14:49 | EKG ---
Test Reason : Blood Pressure : / mmHG Vent. Rate : 073 BPM Atrial Rate : 073 BPM P-R Int : 196 ms QRS Dur : 094 ms QT Int : 384 ms P-R-T Axes : 036 048 011 degrees QTc Int : 423 ms NORMAL SINUS RHYTHM NORMAL ECG WHEN COMPARED WITH ECG OF 02-MAR-2019 23:48, NO SIGNIFICANT CHANGE WAS FOUND Confirmed by ANA ROSA GLOVER MD ([id number]) on 03/03/2019 2:49:24 PM Referred By: Elaine HALEY Confirmed By:ANA ROSA GLOVER MD
--- NOTE | 2019-03-03 15:33 | PN ---
Teaching Attending Note Name of Resident: Buddy Neville ATTENDING PHYSICIAN STATEMENT I saw and evaluated the patient. I reviewed the resident's note and discussed the case with the resident. I agree with the resident's findings and plan as documented. SUBJECTIVE: Patient seen and examined Discussed with Dr. Neville OBJECTIVE: 53 year old presented with chest pains. Complicated history . 2017 - pulmonary emboli in [place] . 2017 balloon angioplasty in [place]. Told of Factor V Leyden deficiency. Placed on eliquis. Recent hospitilization in [place] where work up revealed stroke, carotid stenosis of 50%, cardiac thrombus and patent foramen ovale. Patient begun on coumadin. States he was given lovenox upon discharge to take with coumadin, but could not fill prescription because of day holiday. Presented with sub-therapeutic INR. 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 Last Vital Signs Temp Pulse Resp BP Pulse Ox 98.3 F 90 20 146/84 96 03/03/19 14:03 03/03/19 14:03 03/03/19 14:03 03/03/19 14:03 03/03/19 09:00 HEENT: AJ, EOM Intact Oropharynx: No thrush, No mucositis, upper and lower dentures Neck: Supple Nodes: Without adenopathy Breasts: Without masses Cor: RSR, No murmurs, No gallops Lungs: Clear to P&A testes descended , circumcised Abd: Soft, Normal bowel sounds, No organomegaly Ext:No significant edema Skin: No rashes, Integument intact CBC, BMP 03/03/19 05:10 03/03/19 05:10 Current Medications Generic Name Dose Route Start Last Admin Trade Name Freq PRN Reason Stop Dose Admin Aspirin 81 mg 03/03/19 10:00 03/03/19 10:05 Asa - PO Not Given DAILY [facility] Atorvastatin Calcium 40 mg 03/03/19 22:00 Lipitor - PO HS AIYANA Gabapentin 400 mg 03/03/19 06:00 03/03/19 13:05 Neurontin - PO 400 mg TID AIYANA Administration Sodium Chloride 1,000 mls @ 42 mls/hr 03/02/19 18:00 03/02/19 19:41 Normal Saline - IV 42 mls/hr ASDIR AIYANA Administration Heparin Sodium/Dextrose 25,000 units in 500 mls @ 20 mls/hr 03/02/19 23:45 10:26 Heparin Infusion - IVPB 1,100 units/hr TITR AIYANA 22 mls/hr Titration Protocol 1,000 UNITS/HR ASSESSMENT AND PLAN: Impression: With history of Factor V Leyden deficiency , prior pulmonary embolism, coronary thrombosis, patient requires life long anticoagulation. If there is a question of failure of eliquis then a/c with coumadin . Can bridge heparin to coumadin Additional problems MS Stroke Carotid stenosis Colonic polyps Bleeding ulcer FVL deficiency
[2019-03-03] MEDS ORDERED: COPAXONE 40 MG SQ ONE (16:00)
[2019-03-03] MEDS: SODIUM CHLORIDE 1,000 ML IV SCH (18:00)
[2019-03-03] MEDS: ATORVASTATIN CA 40 MG TABLET (FP) PO SCH (21:19)
[2019-03-04] MEDS: HEPARIN INFUSION - 25,000 UNITS/500 ML INFUS.BAG IVPB SCH ×2 (02:40→23:59)
[2019-03-04] MEDS: GABAPENTIN 400 MG CAPSULE (FP) PO SCH ×3 (06:51→21:37)
[2019-03-04 06:53] LABS: HEMATOCRIT 35.4 % (35.4-49); HEMOGLOBIN 11.6 GM/dL (11.7-16.9); MCH 28.5 pg (25.7-33.7); MCHC 32.8 g/dl (32.0-35.9); MEAN PLT VOLUME 8.1 fl (7.5-11.1); PLATELET COUNT 305 K/MM3 (134-434); RBC 4.07 M/mm3 (4.00-5.60); WHITE BLOOD COUNT 7.2 K/mm3 (4.0-10.0)
--- NOTE | 2019-03-04 09:13 | PN ---
Progress Note, Physician - Current Medication List Current Medications: Active Medications Aspirin (Asa -) 81 mg PO DAILY [facility] Last Admin: 03/03/19 10:05 Dose: Not Given Atorvastatin Calcium (Lipitor -) 40 mg PO HS [facility] Last Admin: 03/03/19 21:19 Dose: 40 mg Gabapentin (Neurontin -) 400 mg PO TID [facility] Last Admin: 03/04/19 06:51 Dose: 400 mg Sodium Chloride (Normal Saline -) 1,000 mls @ 42 mls/hr IV ASDIR [facility] Last Admin: 03/03/19 18:00 Dose: 42 mls/hr Heparin Sodium/Dextrose (Heparin Infusion -) 25,000 units in 500 mls @ 20 mls/ hr IVPB TITR AIYANA; Protocol Last Admin: 03/04/19 02:40 Dose: 1,100 units/hr, 22 mls/hr Copaxone 40mg Inj 1 each SQ ONCE ONE Stop: 03/03/19 16:01 - Objective Vital Signs: Vital Signs Temperature 97.9 F 03/04/19 06:45 Pulse Rate 69 03/04/19 06:45 Respiratory Rate 20 03/04/19 06:45 Blood Pressure 115/66 03/04/19 06:45 O2 Sat by Pulse Oximetry (%) 97 03/03/19 21:00 Cardiovascular: Yes: S1, S2 Respiratory: Yes: Regular, CTA Bilaterally Gastrointestinal: Yes: Normal Bowel Sounds, Soft Labs: CBC, BMP 03/04/19 05:20 03/03/19 05:10 INR, PTT INR 1.50 (0.83-1.09) H 03/03/19 05:10 Problem List - Problems (1) Thrombus in heart chamber Assessment/Plan: -OBTAIN RECORDS FROM [facility] CARDIO HEPARIN DRIP Code(s): I51.3 - INTRACARDIAC THROMBOSIS, NOT ELSEWHERE CLASSIFIED (2) CVA (cerebral vascular accident) Assessment/Plan: BY HISTORY OBTAIN RECORDS NEURO Code(s): I63.9 - CEREBRAL INFARCTION, UNSPECIFIED (3) Numbness and tingling in left arm Assessment/Plan: MRI OBTAIN OLD RECORDS HEPARIN DRIP Code(s): R20.0 - ANESTHESIA OF SKIN; R20.2 - PARESTHESIA OF SKIN (4) Chest pain Assessment/Plan: FOLLOW CE Code(s): R07.9 - CHEST PAIN, UNSPECIFIED (5) multiple sclerosis Assessment/Plan: per neuro
[2019-03-04] MEDS: ASPIRIN 81 MG CHEWABLE TABLETS PO SCH (10:40)
--- NOTE | 2019-03-04 15:05 | PN ---
Progress Note, Physician Chief Complaint: Pt A&OX3; sitting up at bedside. Denies chest duong, SOB; still with left-sided weakness/numbness. History of Present Illness: 53-year-old male with hx Factor 5 Leiden deficiency, multiple sclerosis for nearly 20 years, who presents with a complaint of left sided numbness to his arms and legs that is new since since waking up this morning. He also has complaint of chest and neck pain. Currently, the pain in his chest is 6 out of 10 histories hospitalization for stroke about 10 days ago at [facility]; was in ICU for a few days. His INR 2 days ago was 1.1 He was told that he had 50% occlusion of his carotid artery. Gives hx of having two ECHOs while in the hospital, and was told of having "a clot and a hole in the heart (?ASD/PFO). He does have a history of factor Leiden V deficiency (as did his father), and recently was switched from eliquis to Coumadin Denies cigarettes. - Current Medication List Current Medications: Active Medications Aspirin (Asa -) 81 mg PO DAILY [facility] Last Admin: 03/04/19 10:40 Dose: 81 mg Atorvastatin Calcium (Lipitor -) 40 mg PO HS [facility] Last Admin: 03/03/19 21:19 Dose: 40 mg Gabapentin (Neurontin -) 400 mg PO TID [facility] Last Admin: 03/04/19 13:54 Dose: 400 mg Sodium Chloride (Normal Saline -) 1,000 mls @ 42 mls/hr IV ASDIR [facility] Last Admin: 03/03/19 18:00 Dose: 42 mls/hr Heparin Sodium/Dextrose (Heparin Infusion -) 25,000 units in 500 mls @ 20 mls/ hr IVPB TITR AIYANA; Protocol Last Admin: 03/04/19 02:40 Dose: 1,100 units/hr, 22 mls/hr Copaxone 40mg Inj 1 each SQ ONCE ONE Stop: 03/03/19 16:01 - Objective Vital Signs: Vital Signs Temperature 98.2 F 03/04/19 09:00 Pulse Rate 99 H 03/04/19 09:00 Respiratory Rate 20 03/04/19 09:00 Blood Pressure 129/73 03/04/19 09:00 O2 Sat by Pulse Oximetry (%) 97 03/04/19 09:00 Constitutional: Yes: No Distress Eyes: Yes: WNL HENT: Yes: WNL Neck: Yes: WNL Cardiovascular: Yes: S1, S2 Respiratory: Yes: WNL Gastrointestinal: Yes: Soft ...Rectal Exam: Yes: Deferred Genitourinary: No: Anuria Breast(s): Yes: WNL Musculoskeletal: Yes: WNL Extremities: Yes: WNL Edema: No Peripheral Pulses WNL: Yes Integumentary: Yes: WNL Neurological: Yes: WNL ...Motor Strength: WNL Psychiatric: Yes: Alert, Oriented Labs: CBC, BMP 03/04/19 05:20 03/03/19 05:10 INR, PTT INR 1.50 (0.83-1.09) H 03/03/19 05:10 Abnormal Lab Results 03/06/19 03/06/19 05:22 05:22 RDW 16.7 H PTT (Actin FS) 45.1 H Problem List - Problems (1) CVA (cerebral vascular accident) Code(s): I63.9 - CEREBRAL INFARCTION, UNSPECIFIED (2) Thrombus in heart chamber Assessment/Plan: onb anticoagulation Code(s): I51.3 - INTRACARDIAC THROMBOSIS, NOT ELSEWHERE CLASSIFIED (3) Alcohol dependence Code(s): F10.20 - ALCOHOL DEPENDENCE, UNCOMPLICATED (4) Cocaine dependence Code(s): F14.20 - COCAINE DEPENDENCE, UNCOMPLICATED (5) Opioid abuse Code(s): F11.10 - OPIOID ABUSE, UNCOMPLICATED (7) Factor V Leiden Assessment/Plan: Pt was on apixaban for ?ASD/thrombus in cardiac chamber; it was changed to warfarin, apparently because he "failed" apixaban (?compliance), and due to Factor 5 Leiden deficiency. Await records from [facility] in [place] for clarification. Code(s): D68.51 - ACTIVATED PROTEIN C RESISTANCE (8) [place] cardiac risk 10-20% in next 10 years Assessment/Plan: ? hx coronary angiogram/angioplasty. Await records from [place]. On atorvastatin. Code(s): Z91.89 - OTH PERSONAL RISK FACTORS, NOT ELSEWHERE CLASSIFIED
--- NOTE | 2019-03-04 16:34 | PN ---
Progress Note (short form) - Note Progress Note: 53 year old male with history of multiple sclerosis for 18 years (very poor outpt follow up ), factor 5 mutation and coronary artery disease with balloon angioplasty in 2017 who presents with symptoms of left sided chest pain with numbness to his left upper arm and lower leg and new decreased left leg sensation. He reports he was at [facility] in [place] and was hospitalized in the ICU setting for 3 days and found to have a "stroke"- -though states whole body was affected, carotid artery stenosis with a 50% lesion to unknown side as per patient and by TTE with bubble study found to have a PFO and thrombus. He reports he was placed Eliquis but failed therapy due to him clotting and he was started on Coumadin therapy for INR goal of 3.0 as per patient. Upon evaluation in the ER he was found to have a normal troponin, EKG with a normal sinus rhythm, no signs of acute ischemia, no evidence of atrial fibrillation on telemetry.INR 1.67. Chest pain is reproducible on palpation. CT scan of head with no hemorrhage, stroke not excluded. FU : no new issues - Alcohol/Substance Use Hx Alcohol Use: No - Smoking History Smoking history: Never smoked Have you smoked in the past 12 months: No Aproximately how many cigarettes per day: 1 If you are a former smoker, when did you quit?: 1999 Home Medications - Allergies Allergies/Adverse Reactions: Allergies Allergy/AdvReac Type Severity Reaction Status Date / Time egg Allergy Unknown Hives Verified 03/02/19 16:41 No Known Drug Allergies Allergy Unknown Verified 03/02/19 16:41 LIVER Allergy Hives Uncoded 03/02/19 16:41 - Home Medications Home Medications: Ambulatory Orders Gabapentin [Neurontin] 400 mg PO TID 10/14/17 Oxycodone HCl 20 mg PO Q6H PRN 08/29/18 Morphine *Sr* [Ms Contin -] 15 mg PO Q4H PRN MDD 15 09/06/18 Enoxaparin Sodium [Lovenox] 80 mg SQ ACHS 03/02/19 Warfarin Sodium [Coumadin] 5 mg PO HS 03/02/19 Family Disease History - Family Disease History Family Disease History: Diabetes: Mother, Heart Disease: Sister Physical Exam-Neuro Vital Signs: Vital Signs Temperature 97.8 F 03/04/19 14:00 Pulse Rate 84 03/04/19 14:00 Respiratory Rate 20 03/04/19 09:00 Blood Pressure 119/96 03/04/19 14:00 O2 Sat by Pulse Oximetry (%) 97 03/04/19 09:00 Labs: CBC, BMP 03/03/19 05:10 03/03/19 05:10 INR, PTT INR 1.50 (0.83-1.09) H 03/03/19 05:10 - Neuro Exam Level Of Consciousness: Yes: Alert, Oriented to Person (EOMI, no facial, motor 5 /5, reflxes symmetric ) Problem List - Problems (1) CVA (cerebral vascular accident) Code(s): I63.9 - CEREBRAL INFARCTION, UNSPECIFIED Assessment/Plan ASSESSMENT/PLAN: 53 year old male with history of multiple sclerosis for 18 years (poor FU as outpt), factor 5 mutation and coronary artery disease with balloon angioplasty in 2017 who presented with symptoms of left sided chest pain with numbness to his left upper arm and lower leg and new decreased left leg sensation. He is poor HX and tangential with his complaints, unclear if he had stroke last week-- need to see records vs MS attack vs other ( ? opioid dependence the issue --as he visits many different hospitals) now comes in for left sided CP and numbness left arm and leg MRI BRAIN repeat -P ; he is unable to get closed scan --will have to be done outpt FU records can restart copaxone carotid stenosis if has states 50%--NTD AC for factor V deficiency consider limiting opioids --addiction medicine consult neurologically stable DR KILPATRICK Problem List - Problems (1) CVA (cerebral vascular accident) Code(s): I63.9 - CEREBRAL INFARCTION, UNSPECIFIED
[2019-03-04] MEDS: SODIUM CHLORIDE 1,000 ML IV SCH (19:56)
[2019-03-04] MEDS: ATORVASTATIN CA 40 MG TABLET (FP) PO SCH (21:38)
[2019-03-05] MEDS: GABAPENTIN 400 MG CAPSULE (FP) PO SCH ×3 (05:56→21:25)
[2019-03-05] MEDS ORDERED: oxyCODONE HCL 5 MG TABLET PO ONE (06:23)
--- NOTE | 2019-03-05 07:03 | ECHO ---
Version: 1 Name: MARLO MARIA Exam: Adult Echocardiogram Study Date: 03/04/2019, 10:05 AM Age: 53 Years MMode/2D Measurements & Calculations IVSd: 0.88 cm LVIDs: 3.2 cm LVIDd: 5.1 cm LVPWd: 0.92 cm ACS: 2.04 cm Ao root diam: 3.4 cm LA dimension: 3.2 cm Doppler Measurements & Calculations MV E max mario: 54.1 cm/sec Med E/e': 7.1 MV A max mario: 54.0 cm/sec Med Peak E' Mario: 7.7 cm/sec MV E/A: 1.00 Lat E/e': 6.0 Lat Peak E' Mario: 9.0 cm/sec Ao max P.7 mmHg Ao V2 max: 119.4 cm/sec TR max mario: 202.2 cm/sec TR max P.4 mmHg Procedure A complete two-dimensional transthoracic echocardiogram was performed (2D, M-mode, Doppler and color flow Doppler). Left Ventricle The left ventricular size, thickness and function are normal. Ejection Fraction = 60%. The transmitr al spectral Doppler flow pattern is normal for age. The left ventricular wall motion is normal. Right Ventricle The right ventricle is normal in size and function. Atria Normal left and right atrial size and function. Mitral Valve The mitral valve is normal in structure and function. There is trace mitral regurgitation. Tricuspid Valve The tricuspid valve is normal in structure and function. There is trace tricuspid regurgitation. Rig ht ventricular systolic pressure is 20 mmhg. Aortic Valve There is mild aortic valve thickening. Pulmonic Valve The pulmonic valve is not well visualized. Great Vessels The aortic root is normal size. Pericardium/Pleura There is no pericardial effusion. There is no pleural effusion. Summary Statements The left ventricular size, thickness and function are normal Ejection Fraction = 60%. The right ventricle is normal in size and function. There is trace mitral regurgitation. There is trace tricuspid regurgitation. Right ventricular systolic pressure is 20 mmhg. There is mild aortic valve thickening. MD Dave Rosenberg 03/04/2019, 3:25 PM Ordering Physician: Candi Andersen Performed By: Cady Hodges
[2019-03-05 08:10] LABS: HEMATOCRIT 37.5 % (35.4-49); HEMOGLOBIN 12.3 GM/dL (11.7-16.9); MCH 28.8 pg (25.7-33.7); MCHC 32.7 g/dl (32.0-35.9); MEAN PLT VOLUME 8.3 fl (7.5-11.1); PLATELET COUNT 331 K/MM3 (134-434); RBC 4.26 M/mm3 (4.00-5.60); WHITE BLOOD COUNT 6.7 K/mm3 (4.0-10.0)
--- NOTE | 2019-03-05 08:59 | PN ---
Progress Note, Physician History of Present Illness: 53 year old male with history of multiple sclerosis for 18 years, factor 5 mutation and coronary artery disease with balloon angioplasty in 2017 who presents with symptoms of left sided chest pain with numbness to his left upper arm and lower leg and new decreased left leg sensation. He reports he was at [facility] in [place] and was hospitalized in the ICU setting for 3 days and found to have a stroke, carotid artery stenosis with a 50 % lesion to unknown side as per patient and by TTE with bubble study found to have a PFO and thrombus. He reports he was placed Eliquis but failed therapy due to him clotting and he was started on Coumadin therapy for INR goal of 3.0 as per patient. Upon evaluation in the ER he was found to have a normal troponin, EKG with a normal sinus rhythm, no signs of acute ischemia, no evidence of atrial fibrillation on telemetry.INR 1.67. Chest pain is reproducible on palpation. CT scan of head with no hemorrhage, stroke not excluded. - Current Medication List Current Medications: Active Medications Aspirin (Asa -) 81 mg PO DAILY [facility] Last Admin: 03/04/19 10:40 Dose: 81 mg Atorvastatin Calcium (Lipitor -) 40 mg PO HS [facility] Last Admin: 03/04/19 21:38 Dose: 40 mg Gabapentin (Neurontin -) 400 mg PO TID [facility] Last Admin: 03/05/19 05:56 Dose: 400 mg Sodium Chloride (Normal Saline -) 1,000 mls @ 42 mls/hr IV ASDIR [facility] Last Admin: 03/04/19 19:56 Dose: 42 mls/hr Heparin Sodium/Dextrose (Heparin Infusion -) 25,000 units in 500 mls @ 20 mls/ hr IVPB TITR [facility]YANA; Protocol Last Admin: 03/04/19 23:59 Dose: 1,100 units/hr, 22 mls/hr Copaxone 40mg Inj 1 each SQ ONCE ONE Stop: 03/03/19 16:01 - Objective Vital Signs: Vital Signs Temperature 98.2 F 03/05/19 05:52 Pulse Rate 75 03/05/19 05:52 Respiratory Rate 18 03/05/19 05:52 Blood Pressure 154/87 03/05/19 05:52 O2 Sat by Pulse Oximetry (%) 98 03/04/19 20:45 Eyes: Yes: WNL, Conjunctiva Clear, EOM Intact HENT: Yes: WNL, Atraumatic, Normocephalic Neck: Yes: WNL, Supple, Trachea Midline Cardiovascular: Yes: WNL, Regular Rate and Rhythm Respiratory: Yes: WNL, Regular, CTA Bilaterally Gastrointestinal: Yes: WNL, Normal Bowel Sounds Genitourinary: Yes: WNL Musculoskeletal: Yes: WNL Extremities: Yes: WNL Edema: No Integumentary: Yes: WNL Neurological: Yes: Alert, Oriented ...Motor Strength: WNL Psychiatric: Yes: WNL Labs: CBC, BMP 03/05/19 06:16 03/03/19 05:10 INR, PTT INR 1.50 (0.83-1.09) H 03/03/19 05:10 Assessment/Plan - Problems (1) CVA (cerebral vascular accident) Code(s): I63.9 - CEREBRAL INFARCTION, UNSPECIFIED (2) Thrombus in heart chamber Code(s): I51.3 - INTRACARDIAC THROMBOSIS, NOT ELSEWHERE CLASSIFIED (3) Alcohol dependence Code(s): F10.20 - ALCOHOL DEPENDENCE, UNCOMPLICATED (4) Cocaine dependence Code(s): F14.20 - COCAINE DEPENDENCE, UNCOMPLICATED (5) Opioid abuse Code(s): F11.10 - OPIOID ABUSE, UNCOMPLICATED (7) Factor V Leiden Assessment/Plan: Pt was on apixaban for ?ASD/thrombus in cardiac chamber; it was changed to warfarin, apparently because he "failed" apixaban (?compliance), and due to Factor 5 Leiden deficiency. Await records from [facility] in [place] for clarification. Code(s): D68.51 - ACTIVATED PROTEIN C RESISTANCE (8) [place] cardiac risk 10-20% in next 10 years Assessment/Plan: ? hx coronary angiogram/angioplasty. Await records from [place]. On atorvastatin. Code(s): Z91.89 - OTH PERSONAL RISK FACTORS, NOT ELSEWHERE CLASSIFIED
--- NOTE | 2019-03-05 09:48 | PN ---
Progress Note, Physician - Current Medication List Current Medications: Active Medications Aspirin (Asa -) 81 mg PO DAILY [facility] Last Admin: 03/04/19 10:40 Dose: 81 mg Atorvastatin Calcium (Lipitor -) 40 mg PO HS [facility] Last Admin: 03/04/19 21:38 Dose: 40 mg Gabapentin (Neurontin -) 400 mg PO TID [facility] Last Admin: 03/05/19 05:56 Dose: 400 mg Sodium Chloride (Normal Saline -) 1,000 mls @ 42 mls/hr IV ASDIR [facility] Last Admin: 03/04/19 19:56 Dose: 42 mls/hr Heparin Sodium/Dextrose (Heparin Infusion -) 25,000 units in 500 mls @ 20 mls/ hr IVPB TITR [facility]; Protocol Last Admin: 03/04/19 23:59 Dose: 1,100 units/hr, 22 mls/hr Copaxone 40mg Inj 1 each SQ ONCE ONE Stop: 03/03/19 16:01 - Objective Vital Signs: Vital Signs Temperature 98.2 F 03/05/19 05:52 Pulse Rate 75 03/05/19 05:52 Respiratory Rate 18 03/05/19 05:52 Blood Pressure 154/87 03/05/19 05:52 O2 Sat by Pulse Oximetry (%) 98 03/04/19 20:45 Cardiovascular: Yes: S1, S2 Respiratory: Yes: Regular, CTA Bilaterally Gastrointestinal: Yes: Normal Bowel Sounds, Soft Labs: CBC, BMP 03/05/19 06:16 03/03/19 05:10 INR, PTT INR 1.50 (0.83-1.09) H 03/03/19 05:10 Problem List - Problems (1) Thrombus in heart chamber Assessment/Plan: -OBTAIN RECORDS FROM [facility] [place] CARDIO HEPARIN DRIP Code(s): I51.3 - INTRACARDIAC THROMBOSIS, NOT ELSEWHERE CLASSIFIED (2) CVA (cerebral vascular accident) Assessment/Plan: BY HISTORY OBTAIN RECORDS NEURO Code(s): I63.9 - CEREBRAL INFARCTION, UNSPECIFIED (3) Numbness and tingling in left arm Assessment/Plan: MRI OBTAIN OLD RECORDS HEPARIN DRIP Code(s): R20.0 - ANESTHESIA OF SKIN; R20.2 - PARESTHESIA OF SKIN (4) Chest pain Assessment/Plan: Resolved\ cardio on board Code(s): R07.9 - CHEST PAIN, UNSPECIFIED (5) multiple sclerosis Assessment/Plan: per neuro
[2019-03-05] MEDS: ASPIRIN 81 MG CHEWABLE TABLETS PO SCH (10:12)
[2019-03-05] MEDS: SODIUM CHLORIDE 1,000 ML IV SCH (20:30)
[2019-03-05] MEDS: ATORVASTATIN CA 40 MG TABLET (FP) PO SCH (21:25)
[2019-03-06] MEDS: HEPARIN INFUSION - 25,000 UNITS/500 ML INFUS.BAG IVPB SCH ×4 (00:40→23:30)
[2019-03-06] MEDS: GABAPENTIN 400 MG CAPSULE (FP) PO SCH ×3 (06:16→21:43)
[2019-03-06 07:38] LABS: HEMATOCRIT 38.7 % (35.4-49); HEMOGLOBIN 12.6 GM/dL (11.7-16.9); MCH 28.5 pg (25.7-33.7); MCHC 32.5 g/dl (32.0-35.9); MEAN CELL VOLUME 87.9 fl (80-96); MEAN PLT VOLUME 8.2 fl (7.5-11.1); PLATELET COUNT 303 K/MM3 (134-434); RBC 4.41 M/mm3 (4.00-5.60); RDW 16.7 % (11.9-15.9); WHITE BLOOD COUNT 6.7 K/mm3 (4.0-10.0)
--- NOTE | 2019-03-06 10:22 | PN ---
Progress Note (short form) - Note Progress Note: 53 year old male with history of multiple sclerosis for 18 years (very poor outpt follow up ), factor 5 mutation and coronary artery disease with balloon angioplasty in 2017 who presents with symptoms of left sided chest pain with numbness to his left upper arm and lower leg and new decreased left leg sensation. He reports he was at [facility] in [place] and was hospitalized in the ICU setting for 3 days and found to have a "stroke"- -though states whole body was affected, carotid artery stenosis with a 50% lesion to unknown side as per patient and by TTE with bubble study found to have a PFO and thrombus. He reports he was placed Eliquis but failed therapy due to him clotting and he was started on Coumadin therapy for INR goal of 3.0 as per patient. Upon evaluation in the ER he was found to have a normal troponin, EKG with a normal sinus rhythm, no signs of acute ischemia, no evidence of atrial fibrillation on telemetry.INR 1.67. Chest pain is reproducible on palpation. CT scan of head with no hemorrhage, stroke not excluded. FU : no new issues - Alcohol/Substance Use Hx Alcohol Use: No - Smoking History Smoking history: Never smoked Have you smoked in the past 12 months: No Aproximately how many cigarettes per day: 1 If you are a former smoker, when did you quit?: 1999 Home Medications - Allergies Allergies/Adverse Reactions: Allergies Allergy/AdvReac Type Severity Reaction Status Date / Time egg Allergy Unknown Hives Verified 03/02/19 16:41 No Known Drug Allergies Allergy Unknown Verified 03/02/19 16:41 LIVER Allergy Hives Uncoded 03/02/19 16:41 - Home Medications Home Medications: Ambulatory Orders Gabapentin [Neurontin] 400 mg PO TID 10/14/17 Oxycodone HCl 20 mg PO Q6H PRN 08/29/18 Morphine *Sr* [Ms Contin -] 15 mg PO Q4H PRN MDD 15 09/06/18 Enoxaparin Sodium [Lovenox] 80 mg SQ ACHS 03/02/19 Warfarin Sodium [Coumadin] 5 mg PO HS 03/02/19 Family Disease History - Family Disease History Family Disease History: Diabetes: Mother, Heart Disease: Sister Physical Exam-Neuro Vital Signs: Vital Signs Temperature 97.8 F 03/06/19 06:30 Pulse Rate 70 03/06/19 06:30 Respiratory Rate 18 03/06/19 06:30 Blood Pressure 121/77 03/06/19 06:30 O2 Sat by Pulse Oximetry (%) 96 03/05/19 21:00 Labs: CBCD WBC 6.7 K/mm3 (4.0-10.0) 03/06/19 05:22 RBC 4.41 M/mm3 (4.00-5.60) 03/06/19 05:22 Hgb 12.6 GM/dL (11.7-16.9) 03/06/19 05:22 Hct 38.7 % (35.4-49) 03/06/19 05:22 MCV 87.9 fl (80-96) 03/06/19 05:22 MCHC 32.5 g/dl (32.0-35.9) 03/06/19 05:22 RDW 16.7 % (11.9-15.9) H 03/06/19 05:22 Plt Count 303 K/MM3 (134-434) 03/06/19 05:22 MPV 8.2 fl (7.5-11.1) 03/06/19 05:22 CMP Sodium 141 mmol/L (136-145) 03/03/19 05:10 Potassium 3.8 mmol/L (3.5-5.1) 03/03/19 05:10 Chloride 106 mmol/L (98-107) 03/03/19 05:10 Carbon Dioxide 27 mmol/L (21-32) 03/03/19 05:10 Anion Gap 8 MMOL/L (8-16) 03/03/19 05:10 BUN 10.2 mg/dL (7-18) 03/03/19 05:10 Creatinine 0.7 mg/dL (0.55-1.3) 03/03/19 05:10 Calcium 8.5 mg/dL (8.5-10.1) 03/03/19 05:10 Total Bilirubin 0.5 mg/dL (0.2-1) 03/02/19 18:15 AST 29 U/L (15-37) 03/02/19 18:15 ALT 58 U/L (13-61) 03/02/19 18:15 Alkaline Phosphatase 79 U/L (45-117) 03/02/19 18:15 Total Protein 7.6 g/dl (6.4-8.2) 03/02/19 18:15 Albumin 3.7 g/dl (3.4-5.0) 03/02/19 18:15 - Neuro Exam Level Of Consciousness: Yes: Alert, Oriented to Person (EOMI, no facial, motor 5 /5, reflxes symmetric ) Problem List - Problems (1) CVA (cerebral vascular accident) Code(s): I63.9 - CEREBRAL INFARCTION, UNSPECIFIED Assessment/Plan ASSESSMENT/PLAN: 53 year old male with history of multiple sclerosis for 18 years (poor FU as outpt), factor 5 mutation and coronary artery disease with balloon angioplasty in 2017 who presented with symptoms of left sided chest pain with numbness to his left upper arm and lower leg and new decreased left leg sensation. He is poor HX and tangential with his complaints unclear if he had stroke last week-- need to see records vs MS attack vs other ( ? opioid dependence the issue --as he visits many different hospitals) now comes in for left sided CP and numbness left arm and leg --no clear evidence of MS relapse MRI BRAIN repeat -P ; he is unable to get closed scan --will have to be done outpt can restart copaxone AN OUTPT carotid stenosis if has states 50%--NTD AC for factor V deficiency consider limiting opioids --addiction medicine consult neurologically stable and can Dc form neuro standpoint DR KILPATRICK Problem List - Problems (1) CVA (cerebral vascular accident) Code(s): I63.9 - CEREBRAL INFARCTION, UNSPECIFIED
[2019-03-06] MEDS: ASPIRIN 81 MG CHEWABLE TABLETS PO SCH (11:07)
--- NOTE | 2019-03-06 12:09 | PN ---
Progress Note, Physician Chief Complaint: pateint khushbu norton on hepatrin drip had intermittent chest pain [facility] papers seen thrombus noted in lateral aspect of left ventricle 0.6cm by 0.6 cm - Current Medication List Current Medications: Active Medications Aspirin (Asa -) 81 mg PO DAILY [facility] Last Admin: 03/06/19 11:07 Dose: 81 mg Atorvastatin Calcium (Lipitor -) 40 mg PO HS [facility] Last Admin: 03/05/19 21:25 Dose: 40 mg Gabapentin (Neurontin -) 400 mg PO TID [facility] Last Admin: 03/06/19 06:16 Dose: 400 mg Sodium Chloride (Normal Saline -) 1,000 mls @ 42 mls/hr IV ASDIR [facility] Last Admin: 03/05/19 20:30 Dose: 42 mls/hr Heparin Sodium/Dextrose (Heparin Infusion -) 25,000 units in 500 mls @ 20 mls/ hr IVPB TITR [facility]; Protocol Last Admin: 03/06/19 07:57 Dose: 1,200 units/hr, 24 mls/hr Copaxone 40mg Inj 1 each SQ ONCE ONE Stop: 03/03/19 16:01 - Objective Vital Signs: Vital Signs Temperature 97.8 F 03/06/19 06:30 Pulse Rate 70 03/06/19 06:30 Respiratory Rate 18 03/06/19 06:30 Blood Pressure 121/77 03/06/19 06:30 O2 Sat by Pulse Oximetry (%) 96 03/05/19 21:00 Constitutional: Yes: Calm Cardiovascular: Yes: Regular Rate and Rhythm, S1, S2 Respiratory: Yes: CTA Bilaterally Gastrointestinal: Yes: Normal Bowel Sounds, Soft Edema: No Neurological: Yes: Alert, Oriented Labs: CBC, BMP 03/06/19 05:22 03/03/19 05:10 INR, PTT INR 1.50 (0.83-1.09) H 03/03/19 05:10 Problem List - Problems (1) CVA (cerebral vascular accident) Assessment/Plan: h/o cva on heparin drip will need coumadin was on eliquis before but was stopped becasue he had stroke CTA of headd and neck noted neruology recomends outpatinet folow up Code(s): I63.9 - CEREBRAL INFARCTION, UNSPECIFIED (2) Chest pain Assessment/Plan: iv heparin echo noted echo done at outside hospital last month showed thrombus in left ventricle Code(s): R07.9 - CHEST PAIN, UNSPECIFIED (3) Thrombus in heart chamber Assessment/Plan: iv heparin alexandra martha to bridge to coumadin prior to discharge will await cardiology recommendations will need STEPHANIE to be done at outside hospital Code(s): I51.3 - INTRACARDIAC THROMBOSIS, NOT ELSEWHERE CLASSIFIED
--- NOTE | 2019-03-06 13:24 | PN ---
Progress Note, Physician Chief Complaint: Pt A&OX3; asymptomatic. He says he awaits going to rehabilitation. History of Present Illness: 53-year-old male with hx Factor 5 Leiden deficiency, multiple sclerosis for nearly 20 years, who presents with a complaint of left sided numbness to his arms and legs that is new since since waking up this morning. He also has complaint of chest and neck pain. Currently, the pain in his chest is 6 out of 10 histories hospitalization for stroke about 10 days ago at [facility] [place] on [address]; was in ICU for a few days. His INR 2 days ago was 1.1 He was told that he had 50% occlusion of his carotid artery. Gives hx of having two ECHOs while in the hospital, and was told of having "a clot and a hole in the heart (?ASD/PFO). He does have a history of factor Leiden V deficiency (as did his father), and recently was switched from eliquis to Coumadin Denies cigarettes. - Current Medication List Current Medications: Active Medications Aspirin (Asa -) 81 mg PO DAILY [facility] Last Admin: 03/06/19 11:07 Dose: 81 mg Atorvastatin Calcium (Lipitor -) 40 mg PO HS [facility] Last Admin: 03/05/19 21:25 Dose: 40 mg Gabapentin (Neurontin -) 400 mg PO TID [facility] Last Admin: 03/06/19 06:16 Dose: 400 mg Sodium Chloride (Normal Saline -) 1,000 mls @ 42 mls/hr IV ASDIR [facility] Last Admin: 03/05/19 20:30 Dose: 42 mls/hr Heparin Sodium/Dextrose (Heparin Infusion -) 25,000 units in 500 mls @ 20 mls/ hr IVPB TITR [facility]; Protocol Last Admin: 03/06/19 07:57 Dose: 1,200 units/hr, 24 mls/hr Copaxone 40mg Inj 1 each SQ ONCE ONE Stop: 03/03/19 16:01 - Objective Vital Signs: Vital Signs Temperature 97.8 F 03/06/19 06:30 Pulse Rate 70 03/06/19 06:30 Respiratory Rate 18 03/06/19 06:30 Blood Pressure 121/77 03/06/19 06:30 O2 Sat by Pulse Oximetry (%) 96 03/05/19 21:00 Constitutional: Yes: Well Nourished, Calm Eyes: Yes: WNL HENT: Yes: WNL Neck: Yes: WNL Cardiovascular: Yes: S1, S2 Respiratory: Yes: WNL Gastrointestinal: Yes: WNL ...Rectal Exam: Yes: Deferred Genitourinary: No: Anuria Breast(s): Yes: WNL Edema: No Peripheral Pulses WNL: Yes Integumentary: Yes: WNL Neurological: Yes: WNL ...Motor Strength: WNL Psychiatric: Yes: WNL Labs: CBC, BMP 03/06/19 05:22 03/03/19 05:10 INR, PTT INR 1.50 (0.83-1.09) H 03/03/19 05:10 Abnormal Lab Results 03/07/19 03/07/19 05:18 05:18 RDW 16.8 H PTT (Actin FS) 71.7 H - ....Imaging EKG: Image Reviewed Problem List - Problems (1) CVA (cerebral vascular accident) Code(s): I63.9 - CEREBRAL INFARCTION, UNSPECIFIED (2) Thrombus in heart chamber Assessment/Plan: on anticoagulation (IV heparin until warfain-->INR level 2-3 for at least 24 hours). Code(s): I51.3 - INTRACARDIAC THROMBOSIS, NOT ELSEWHERE CLASSIFIED (3) Alcohol dependence Code(s): F10.20 - ALCOHOL DEPENDENCE, UNCOMPLICATED (4) Cocaine dependence Code(s): F14.20 - COCAINE DEPENDENCE, UNCOMPLICATED (5) Opioid abuse Code(s): F11.10 - OPIOID ABUSE, UNCOMPLICATED (7) Factor V Leiden Assessment/Plan: Pt was on apixaban for ?ASD/thrombus in cardiac chamber; it was changed to warfarin, apparently because he "failed" apixaban (?compliance), and due to Factor 5 Leiden deficiency. Pt says he was first diagnosed with this deficiency while undergoing a stress test in [place]: "I failed it because they found a blood clot in my lung". Code(s): D68.51 - ACTIVATED PROTEIN C RESISTANCE (8) [place] cardiac risk 10-20% in next 10 years Assessment/Plan: Pt had stress test done in [facility] 03/2018: f/u results. TNI < 0.02 x 2. No chest pain presently. EKG: NSR; ?LVH. Would treat LV thrombus (on IV heparin; warfarin started), investigation for etiology of clots (before further coronary artery evaluation (if necessary), which may be done as outpatient). Code(s): Z91.89 - OTH PERSONAL RISK FACTORS, NOT ELSEWHERE CLASSIFIED
[2019-03-06] MEDS: WARFARIN NA 5 MG TABLET (UD) PO SCH ×2 (16:28→17:01)
[2019-03-06] MEDS: SODIUM CHLORIDE 1,000 ML IV SCH (17:00)
[2019-03-06] MEDS: ATORVASTATIN CA 40 MG TABLET (FP) PO SCH (21:43)
[2019-03-07] MEDS: GABAPENTIN 400 MG CAPSULE (FP) PO SCH ×3 (06:13→21:53)
[2019-03-07 06:43] LABS: HEMATOCRIT 36.7 % (35.4-49); HEMOGLOBIN 11.9 GM/dL (11.7-16.9); MCH 28.7 pg (25.7-33.7); MCHC 32.4 g/dl (32.0-35.9); MEAN CELL VOLUME 88.6 fl (80-96); PLATELET COUNT 337 K/MM3 (134-434); RBC 4.14 M/mm3 (4.00-5.60); RDW 16.8 % (11.9-15.9); WHITE BLOOD COUNT 6.4 K/mm3 (4.0-10.0)
[2019-03-07 07:12] LABS: PROTHROMBIN TIME (PATIENT) 11.8 SEC (9.7-13.0)
[2019-03-07] MEDS ORDERED: WARFARIN NA 5 MG TABLET (UD) PO SCH (10:38)
[2019-03-07] MEDS: ASPIRIN 81 MG CHEWABLE TABLETS PO SCH (10:39)
--- NOTE | 2019-03-07 15:12 | PN ---
Progress Note, Physician Chief Complaint: patient seen and examined inr subtherapeutic - Current Medication List Current Medications: Active Medications Aspirin (Asa -) 81 mg PO DAILY [facility] Last Admin: 03/07/19 10:39 Dose: 81 mg Atorvastatin Calcium (Lipitor -) 40 mg PO HS [facility] Last Admin: 03/06/19 21:43 Dose: 40 mg Gabapentin (Neurontin -) 400 mg PO TID [facility] Last Admin: 03/07/19 13:57 Dose: 400 mg Sodium Chloride (Normal Saline -) 1,000 mls @ 42 mls/hr IV ASDIR [facility] Last Admin: 03/06/19 17:00 Dose: 42 mls/hr Heparin Sodium/Dextrose (Heparin Infusion -) 25,000 units in 500 mls @ 20 mls/ hr IVPB TITR [facility]; Protocol Last Admin: 03/06/19 23:30 Dose: 1,200 units/hr, 24 mls/hr Copaxone 40mg Inj 1 each SQ ONCE ONE Stop: 03/03/19 16:01 Warfarin Sodium 2 mg/ Warfarin (Sodium 5 mg) 7 mg PO DAILY@1800 [facility] - Objective Vital Signs: Vital Signs Temperature 98.6 F 03/07/19 10:00 Pulse Rate 95 H 03/07/19 10:00 Respiratory Rate 18 03/07/19 10:00 Blood Pressure 136/86 03/07/19 10:00 O2 Sat by Pulse Oximetry (%) 92 L 03/07/19 09:00 Constitutional: Yes: Calm Cardiovascular: Yes: Regular Rate and Rhythm, S1, S2 Respiratory: Yes: CTA Bilaterally Gastrointestinal: Yes: Normal Bowel Sounds, Soft Labs: CBC, BMP 03/07/19 05:18 03/03/19 05:10 INR, PTT INR 1.00 (0.83-1.09) 03/07/19 05:10 Problem List - Problems (1) CVA (cerebral vascular accident) Assessment/Plan: h/o cva on heparin drip bride to coumadin was on eliquis before but was stopped because he had stroke CTA of head and neck noted neurology recomends [facility] Code(s): I63.9 - CEREBRAL INFARCTION, UNSPECIFIED (2) Chest pain Assessment/Plan: iv heparin to coumadin echo noted echo done at outside hospital last month showed thrombus in left ventricle Code(s): R07.9 - CHEST PAIN, UNSPECIFIED (3) Thrombus in heart chamber Assessment/Plan: iv heparin alexandra martha to bridge to coumadin prior to discharge will await cardiology recommendations will need STEPHANIE to be done at outside hospital Code(s): I51.3 - INTRACARDIAC THROMBOSIS, NOT ELSEWHERE CLASSIFIED Assessment/Plan will go to SNF and follow up with cardiology as outpatient for STEPHANIE/ INR check MWF goal 2-3
[2019-03-07] MEDS ORDERED: WARFARIN NA 2 MG TABLET (UD) ONE (17:08)
[2019-03-07] MEDS ORDERED: WARFARIN NA 5 MG TABLET (UD) ONE (17:08)
[2019-03-07] MEDS: WARFARIN NA 2 MG, WARFARIN NA 5 MG PO SCH (17:18)
[2019-03-07] MEDS: SODIUM CHLORIDE 1,000 ML IV SCH (19:30)
[2019-03-07] MEDS: ATORVASTATIN CA 40 MG TABLET (FP) PO SCH (21:53)
[2019-03-07] MEDS: HEPARIN INFUSION - 25,000 UNITS/500 ML INFUS.BAG IVPB SCH (23:30)
--- NOTE | 2019-03-08 05:32 | PN ---
Progress Note, Physician Chief Complaint: Pt A&OX3; remains asymptomatic. History of Present Illness: 53-year-old male with hx Factor 5 Leiden deficiency, multiple sclerosis for nearly 20 years, who presents with a complaint of left sided numbness to his arms and legs that is new since since waking up this morning. He also has complaint of chest and neck pain. Currently, the pain in his chest is 6 out of 10 histories hospitalization for stroke about 10 days ago at [facility] on [place]; was in ICU for a few days. His INR 2 days ago was 1.1 He was told that he had 50% occlusion of his carotid artery. Gives hx of having two ECHOs while in the hospital, and was told of having "a clot and a hole in the heart (?ASD/PFO). He does have a history of factor Leiden V deficiency (as did his father), and recently was switched from eliquis to Coumadin Denies cigarettes. - Current Medication List Current Medications: Active Medications Aspirin (Asa -) 81 mg PO DAILY [facility] Last Admin: 03/07/19 10:39 Dose: 81 mg Atorvastatin Calcium (Lipitor -) 40 mg PO HS [facility] Last Admin: 03/07/19 21:53 Dose: 40 mg Gabapentin (Neurontin -) 400 mg PO TID [facility] Last Admin: 03/07/19 21:53 Dose: 400 mg Sodium Chloride (Normal Saline -) 1,000 mls @ 42 mls/hr IV ASDIR [facility] Last Admin: 03/07/19 19:30 Dose: 42 mls/hr Heparin Sodium/Dextrose (Heparin Infusion -) 25,000 units in 500 mls @ 20 mls/ hr IVPB TITR [facility]; Protocol Last Admin: 03/06/19 23:30 Dose: 1,200 units/hr, 24 mls/hr Copaxone 40mg Inj 1 each SQ ONCE ONE Stop: 03/03/19 16:01 Warfarin Sodium 2 mg/ Warfarin (Sodium 5 mg) 7 mg PO DAILY@1800 [facility] Last Admin: 03/07/19 17:18 Dose: 7 mg - Objective Vital Signs: Vital Signs Temperature 97.8 F 03/08/19 02:12 Pulse Rate 78 03/08/19 02:12 Respiratory Rate 18 03/08/19 02:12 Blood Pressure 117/65 03/08/19 02:12 O2 Sat by Pulse Oximetry (%) 98 03/07/19 21:00 Constitutional: Yes: Well Nourished, No Distress Eyes: Yes: WNL HENT: Yes: WNL Neck: Yes: WNL Cardiovascular: Yes: WNL Respiratory: Yes: WNL Gastrointestinal: Yes: WNL ...Rectal Exam: Yes: Deferred Genitourinary: Yes: Anuria Breast(s): Yes: WNL Musculoskeletal: Yes: WNL Extremities: Yes: WNL Edema: No Peripheral Pulses WNL: Yes Integumentary: Yes: WNL Neurological: Yes: WNL ...Motor Strength: WNL Psychiatric: Yes: WNL Labs: CBC, BMP 03/07/19 05:18 03/03/19 05:10 INR, PTT INR 1.00 (0.83-1.09) 03/07/19 05:10 - ....Imaging Chest X-ray: Image Reviewed Cat Scan: Image Reviewed EKG: Image Reviewed Problem List - Problems (1) CVA (cerebral vascular accident) Code(s): I63.9 - CEREBRAL INFARCTION, UNSPECIFIED (2) Thrombus in heart chamber Assessment/Plan: on anticoagulation (IV heparin until warfain-->INR level 2-3 for at least 24 hours). Hx Factor 5 Leiden deficiency. Further evaluation for etiology of cerebral infarct, cardiac thrombus, which may include STEPHANIE to r/o ASD/PFO, to be done on return to [place] or other [facility] Code(s): I51.3 - INTRACARDIAC THROMBOSIS, NOT ELSEWHERE CLASSIFIED (3) Alcohol dependence Code(s): F10.20 - ALCOHOL DEPENDENCE, UNCOMPLICATED (4) Cocaine dependence Code(s): F14.20 - COCAINE DEPENDENCE, UNCOMPLICATED (5) Opioid abuse Code(s): F11.10 - OPIOID ABUSE, UNCOMPLICATED (7) Factor V Leiden Assessment/Plan: Pt was on apixaban for ?ASD/thrombus in cardiac chamber; it was changed to warfarin, apparently because he "failed" apixaban (?compliance), and due to Factor 5 Leiden deficiency. Pt says he was first diagnosed with this deficiency while undergoing a stress test in [place]: "I failed it because they found a blood clot in my lung". Code(s): D68.51 - ACTIVATED PROTEIN C RESISTANCE (8) [place] cardiac risk 10-20% in next 10 years Assessment/Plan: Pt had stress test done in [facility] 03/2018: f/u results. TNI < 0.02 x 2. No chest pain presently. EKG: NSR; ?LVH. Would treat LV thrombus (on IV heparin; warfarin started), investigation for etiology of clots (before further coronary artery evaluation (if necessary), which may be done as outpatient). On atorvastatin for aggressive lipid control (LDL 90s; moderate bilateral caroid artery plaque without stenoses). Code(s): Z91.89 - OTH PERSONAL RISK FACTORS, NOT ELSEWHERE CLASSIFIED
[2019-03-08] MEDS: GABAPENTIN 400 MG CAPSULE (FP) PO SCH ×3 (05:54→22:53)
[2019-03-08 07:09] LABS: HEMATOCRIT 34.7 % (35.4-49); HEMOGLOBIN 11.5 GM/dL (11.7-16.9); MCH 28.9 pg (25.7-33.7); MCHC 33.1 g/dl (32.0-35.9); MEAN CELL VOLUME 87.2 fl (80-96); PLATELET COUNT 343 K/MM3 (134-434); RBC 3.98 M/mm3 (4.00-5.60); WHITE BLOOD COUNT 5.9 K/mm3 (4.0-10.0)
[2019-03-08 07:11] LABS: INR 1.08 (0.83-1.09); PROTHROMBIN TIME (PATIENT) 12.7 SEC (9.7-13.0)
[2019-03-08 07:14] LABS: ACTIVATED PTT 74.6 SECONDS (25.2-36.5)
[2019-03-08] MEDS: ASPIRIN 81 MG CHEWABLE TABLETS PO SCH (09:00)
--- NOTE | 2019-03-08 10:08 | PN ---
Progress Note, Physician Chief Complaint: Events noted Not in distress History of Present Illness: Patient was seen and examined. Awake and alert. Chart was reviewed Denies chest pain, SOB or palpitations - Current Medication List Current Medications: Active Medications Aspirin (Asa -) 81 mg PO DAILY [facility] Last Admin: 03/08/19 09:00 Dose: 81 mg Atorvastatin Calcium (Lipitor -) 40 mg PO HS [facility] Last Admin: 03/07/19 21:53 Dose: 40 mg Gabapentin (Neurontin -) 400 mg PO TID [facility] Last Admin: 03/08/19 05:54 Dose: 400 mg Sodium Chloride (Normal Saline -) 1,000 mls @ 42 mls/hr IV ASDIR [facility] Last Admin: 03/07/19 19:30 Dose: 42 mls/hr Heparin Sodium/Dextrose (Heparin Infusion -) 25,000 units in 500 mls @ 20 mls/ hr IVPB TITR [facility]; Protocol Last Admin: 03/07/19 23:30 Dose: 1,200 units/hr, 24 mls/hr Copaxone 40mg Inj 1 each SQ ONCE ONE Stop: 03/03/19 16:01 Warfarin Sodium 2 mg/ Warfarin (Sodium 5 mg) 7 mg PO DAILY@1800 [facility] Last Admin: 03/07/19 17:18 Dose: 7 mg - Objective Vital Signs: Vital Signs Temperature 98.3 F 03/08/19 06:00 Pulse Rate 73 03/08/19 06:00 Respiratory Rate 17 03/08/19 06:00 Blood Pressure 111/67 03/08/19 06:00 O2 Sat by Pulse Oximetry (%) 98 03/07/19 21:00 Eyes: Yes: PERRL HENT: Yes: Atraumatic Neck: Yes: Supple Cardiovascular: Yes: Regular Rate and Rhythm Respiratory: Yes: Regular, CTA Bilaterally Gastrointestinal: Yes: Normal Bowel Sounds, Soft. No: Tenderness Edema: No Additional Findings/Remarks: - Review of Systems Constitutional: denies: Chills, Fever Cardiovascular: denies Shortness of Breath. denies: Chest Pain, Palpitations Respiratory: denies Cough, SOB. denies: Hemoptysis, Orthopnea, PND Gastrointestinal: denies: Abdominal Pain, Constipation, Melena, Nausea, Vomiting Musculoskeletal: denies: Joint Pain Neurological: denies: Dizziness, Headache, Seizure, Syncope Labs: CBC, BMP 03/08/19 05:26 03/03/19 05:10 INR, PTT INR 1.08 (0.83-1.09) 03/08/19 05:26 Problem List - Problems (1) CVA (cerebral vascular accident) Code(s): I63.9 - CEREBRAL INFARCTION, UNSPECIFIED (2) Thrombus in heart chamber Code(s): I51.3 - INTRACARDIAC THROMBOSIS, NOT ELSEWHERE CLASSIFIED (3) Alcohol dependence Code(s): F10.20 - ALCOHOL DEPENDENCE, UNCOMPLICATED (4) Cocaine dependence Code(s): F14.20 - COCAINE DEPENDENCE, UNCOMPLICATED (5) Opioid abuse Code(s): F11.10 - OPIOID ABUSE, UNCOMPLICATED (6) Factor V Leiden Code(s): D68.51 - ACTIVATED PROTEIN C RESISTANCE Assessment/Plan 1. Factor V Leiden on chronic anticoagulation 2. Cerebrovascular disease 3. Polysubstance abuse with ETOH , Opioid and Cocaine 4. LV thrombus PLAN: 1. Continue Heparin drip and bridge to Coumadin. INR 2-3 2. ASA 3. Statin 4. Further surveillance of LV thrombus can be done as outpatient Dr. Solorio to resume care next week Claude Jorge MD
--- NOTE | 2019-03-08 11:24 | PN ---
Progress Note, Physician - Current Medication List Current Medications: Active Medications Aspirin (Asa -) 81 mg PO DAILY [facility] Last Admin: 03/08/19 09:00 Dose: 81 mg Atorvastatin Calcium (Lipitor -) 40 mg PO HS [facility] Last Admin: 03/07/19 21:53 Dose: 40 mg Gabapentin (Neurontin -) 400 mg PO TID [facility] Last Admin: 03/08/19 05:54 Dose: 400 mg Sodium Chloride (Normal Saline -) 1,000 mls @ 42 mls/hr IV ASDIR [facility] Last Admin: 03/07/19 19:30 Dose: 42 mls/hr Heparin Sodium/Dextrose (Heparin Infusion -) 25,000 units in 500 mls @ 20 mls/ hr IVPB TITR [facility]; Protocol Last Admin: 03/07/19 23:30 Dose: 1,200 units/hr, 24 mls/hr Copaxone 40mg Inj 1 each SQ ONCE ONE Stop: 03/03/19 16:01 Warfarin Sodium 2 mg/ Warfarin (Sodium 5 mg) 7 mg PO DAILY@1800 [facility] Last Admin: 03/07/19 17:18 Dose: 7 mg - Objective Vital Signs: Vital Signs Temperature 97.2 F L 03/08/19 10:00 Pulse Rate 96 H 03/08/19 10:00 Respiratory Rate 22 H 03/08/19 10:00 Blood Pressure 139/100 03/08/19 10:00 O2 Sat by Pulse Oximetry (%) 100 03/08/19 09:00 Cardiovascular: Yes: S1, S2 Respiratory: Yes: Regular, CTA Bilaterally Gastrointestinal: Yes: Normal Bowel Sounds, Soft Labs: CBC, BMP 03/08/19 05:26 03/03/19 05:10 INR, PTT INR 1.08 (0.83-1.09) 03/08/19 05:26 Problem List - Problems (1) Thrombus in heart chamber Code(s): I51.3 - INTRACARDIAC THROMBOSIS, NOT ELSEWHERE CLASSIFIED (2) CVA (cerebral vascular accident) Code(s): I63.9 - CEREBRAL INFARCTION, UNSPECIFIED (3) Numbness and tingling in left arm Code(s): R20.0 - ANESTHESIA OF SKIN; R20.2 - PARESTHESIA OF SKIN (4) Chest pain Code(s): R07.9 - CHEST PAIN, UNSPECIFIED Assessment/Plan - Problems (1) CVA (cerebral vascular accident) Assessment/Plan: h/o cva on heparin drip bride to coumadin was on eliquis before but was stopped because he had stroke CTA of head and neck noted neurology recomends [facility] Code(s): I63.9 - CEREBRAL INFARCTION, UNSPECIFIED (2) Chest pain Assessment/Plan: iv heparin to coumadin echo noted echo done at outside hospital last month showed thrombus in left ventricle Code(s): R07.9 - CHEST PAIN, UNSPECIFIED (3) Thrombus in heart chamber Assessment/Plan: iv heparin alexandra martha to bridge to coumadin prior to discharge will await cardiology recommendations will need STEPHANIE to be done at outside hospital Code(s): I51.3 - INTRACARDIAC THROMBOSIS, NOT ELSEWHERE CLASSIFIED Assessment/Plan will go to SNF and follow up with cardiology as outpatient for STEPHANIE/ INR check MWF goal 2-3
[2019-03-08] MEDS ORDERED: WARFARIN NA 2 MG TABLET (UD) ONE (17:51)
[2019-03-08] MEDS ORDERED: WARFARIN NA 5 MG TABLET (UD) ONE (17:51)
[2019-03-08] MEDS: SODIUM CHLORIDE 1,000 ML IV SCH (18:16)
[2019-03-08] MEDS: WARFARIN NA 2 MG, WARFARIN NA 5 MG PO SCH (18:16)
[2019-03-08] MEDS: ATORVASTATIN CA 40 MG TABLET (FP) PO SCH (22:53)
[2019-03-09] MEDS: GABAPENTIN 400 MG CAPSULE (FP) PO SCH ×3 (05:54→21:26)
[2019-03-09 07:30] LABS: INR 1.34 (0.83-1.09); PROTHROMBIN TIME (PATIENT) 15.9 SEC (9.7-13.0)
[2019-03-09] MEDS: ASPIRIN 81 MG CHEWABLE TABLETS PO SCH (09:18)
[2019-03-09] MEDS: HEPARIN INFUSION - 25,000 UNITS/500 ML INFUS.BAG IVPB SCH (09:18)
--- NOTE | 2019-03-09 10:13 | PN ---
Progress Note, Physician Chief Complaint: Events noted Not in distress History of Present Illness: Patient was seen and examined. Awake and alert. Chart was reviewed Denies chest pain, SOB or palpitations - Current Medication List Current Medications: Active Medications Aspirin (Asa -) [address] [facility] Last Admin: 03/09/19 09:18 Dose: 81 mg Atorvastatin Calcium (Lipitor -) [address] [facility] Last Admin: 03/08/19 22:53 Dose: 40 mg Gabapentin (Neurontin -) [address] [facility] Last Admin: 03/09/19 05:54 Dose: 400 mg Sodium Chloride (Normal Saline -) 1,000 mls @ 42 mls/hr IV ASDIR [facility] Last Admin: 03/08/19 18:16 Dose: 42 mls/hr Heparin Sodium/Dextrose (Heparin Infusion -) 25,000 units in 500 mls @ 20 mls/ hr IVPB TITR [facility]; Protocol Last Admin: 03/09/19 09:18 Dose: 1,100 units/hr, 22 mls/hr Copaxone 40mg Inj 1 each SQ ONCE ONE Stop: 03/03/19 16:01 Warfarin Sodium 2 mg/ Warfarin (Sodium 5 mg) 7 mg PO DAILY@1800 [facility] Last Admin: 03/08/19 18:16 Dose: 7 mg - Objective Vital Signs: Vital Signs Temperature 97.8 F 03/09/19 06:00 Pulse Rate 75 03/09/19 06:00 Respiratory Rate 20 03/09/19 06:00 Blood Pressure 121/84 03/09/19 06:00 O2 Sat by Pulse Oximetry (%) 97 03/08/19 21:00 Eyes: Yes: PERRL HENT: Yes: Atraumatic Neck: Yes: Supple Cardiovascular: Yes: Regular Rate and Rhythm, S1, S2 Respiratory: Yes: CTA Bilaterally Gastrointestinal: Yes: Normal Bowel Sounds, Soft. No: Tenderness Edema: No Additional Findings/Remarks: - Review of Systems Constitutional: denies: Chills, Fever Cardiovascular: denies Shortness of Breath. denies: Chest Pain, Palpitations Respiratory: denies Cough, SOB. denies: Hemoptysis, Orthopnea, PND Gastrointestinal: denies: Abdominal Pain, Constipation, Melena, Nausea, Vomiting Musculoskeletal: denies: Joint Pain Neurological: denies: Dizziness, Headache, Seizure, Syncope Labs: INR, PTT INR 1.34 (0.83-1.09) H 03/09/19 05:10 Problem List - Problems (1) CVA (cerebral vascular accident) Code(s): I63.9 - CEREBRAL INFARCTION, UNSPECIFIED (2) Thrombus in heart chamber Code(s): I51.3 - INTRACARDIAC THROMBOSIS, NOT ELSEWHERE CLASSIFIED (3) Alcohol dependence Code(s): F10.20 - ALCOHOL DEPENDENCE, UNCOMPLICATED (4) Cocaine dependence Code(s): F14.20 - COCAINE DEPENDENCE, UNCOMPLICATED (5) Opioid abuse Code(s): F11.10 - OPIOID ABUSE, UNCOMPLICATED (6) Factor V Leiden Code(s): D68.51 - ACTIVATED PROTEIN C RESISTANCE Assessment/Plan 1. Factor V Leiden on chronic anticoagulation 2. Cerebrovascular disease 3. Polysubstance abuse with ETOH , Opioid and Cocaine 4. LV thrombus PLAN: 1. Continue Heparin drip and bridge to Coumadin. INR 2-3 2. ASA 3. Statin 4. Further surveillance of LV thrombus can be done as outpatient Dr. Solorio to resume care tomorrow Claude Jorge MD
[2019-03-09] MEDS ORDERED: WARFARIN NA 2 MG TABLET (UD) PO SCH (11:25)
--- NOTE | 2019-03-09 11:26 | PN ---
Progress Note, Physician - Current Medication List Current Medications: Active Medications Aspirin (Asa -) 81 mg PO DAILY [facility] Last Admin: 03/09/19 09:18 Dose: 81 mg Atorvastatin Calcium (Lipitor -) 40 mg PO HS [facility] Last Admin: 03/08/19 22:53 Dose: 40 mg Gabapentin (Neurontin -) 400 mg PO TID [facility] Last Admin: 03/09/19 05:54 Dose: 400 mg Sodium Chloride (Normal Saline -) 1,000 mls @ 42 mls/hr IV ASDIR [facility] Last Admin: 03/08/19 18:16 Dose: 42 mls/hr Heparin Sodium/Dextrose (Heparin Infusion -) 25,000 units in 500 mls @ 20 mls/ hr IVPB TITR [facility]; Protocol Last Admin: 03/09/19 09:18 Dose: 1,100 units/hr, 22 mls/hr Copaxone 40mg Inj 1 each SQ ONCE ONE Stop: 03/03/19 16:01 Warfarin Sodium 2 mg/ Warfarin (Sodium 5 mg) 7 mg PO DAILY@1800 [facility] Last Admin: 03/08/19 18:16 Dose: 7 mg - Objective Vital Signs: Vital Signs Temperature 98 F 03/09/19 10:00 Pulse Rate 80 03/09/19 10:00 Respiratory Rate 18 03/09/19 10:00 Blood Pressure 138/90 03/09/19 10:00 O2 Sat by Pulse Oximetry (%) 97 03/08/19 21:00 Cardiovascular: Yes: Regular Rate and Rhythm Respiratory: Yes: Regular, CTA Bilaterally Gastrointestinal: Yes: Normal Bowel Sounds, Soft Labs: CBC, BMP 03/08/19 05:26 03/03/19 05:10 INR, PTT INR 1.34 (0.83-1.09) H 03/09/19 05:10 Problem List - Problems (1) Thrombus in heart chamber Code(s): I51.3 - INTRACARDIAC THROMBOSIS, NOT ELSEWHERE CLASSIFIED (2) CVA (cerebral vascular accident) Code(s): I63.9 - CEREBRAL INFARCTION, UNSPECIFIED (3) Numbness and tingling in left arm Code(s): R20.0 - ANESTHESIA OF SKIN; R20.2 - PARESTHESIA OF SKIN (4) Chest pain Code(s): R07.9 - CHEST PAIN, UNSPECIFIED Assessment/Plan - Problems (1) CVA (cerebral vascular accident) Assessment/Plan: h/o cva on heparin drip bride to coumadin was on eliquis before but was stopped because he had stroke CTA of head and neck [facility] Code(s): I63.9 - CEREBRAL INFARCTION, UNSPECIFIED (2) Chest pain Assessment/Plan: iv heparin to coumadin echo noted echo done at outside hospital last month showed thrombus in left ventricle Code(s): R07.9 - CHEST PAIN, UNSPECIFIED (3) Thrombus in heart chamber Assessment/Plan: iv heparin alexandra martha to bridge to coumadin --inr 1.38--coumadin 8mg will await cardiology recommendations will need STEPHANIE to be done at outside hospital Code(s): I51.3 - INTRACARDIAC THROMBOSIS, NOT ELSEWHERE CLASSIFIED Assessment/Plan will go to SNF and follow up with cardiology as outpatient for STEPHANIE/ INR check MWF goal 2-3
[2019-03-09] MEDS ORDERED: PT OWN MED DRAWER 7, Y5N ONE (13:25)
[2019-03-09] MEDS ORDERED: HEPARIN INFUSION - 25,000 UNITS/500 ML INFUS.BAG IVPB SCH (14:15)
[2019-03-09] MEDS ORDERED: WARFARIN NA 5 MG TABLET (UD) ONE (16:56)
[2019-03-09] MEDS ORDERED: WARFARIN NA 3 MG TABLET ONE (16:56)
[2019-03-09] MEDS ORDERED: WARFARIN NA 5 MG, WARFARIN NA 3 MG PO SCH (18:00)
[2019-03-09] MEDS: ATORVASTATIN CA 40 MG TABLET (FP) PO SCH (21:26)
[2019-03-09] MEDS: ENOXAPARIN NA (PORCINE) 80 MG/0.8 ML DISP.SYRIN SQ SCH (21:28)
[2019-03-10] MEDS: GABAPENTIN 400 MG CAPSULE (FP) PO SCH ×2 (05:49→13:56)
[2019-03-10 06:48] LABS: INR 2.09 (0.83-1.09); PROTHROMBIN TIME (PATIENT) 24.9 SEC (9.7-13.0)
[2019-03-10] MEDS: ENOXAPARIN NA (PORCINE) 80 MG/0.8 ML DISP.SYRIN SQ SCH (09:15)
[2019-03-10] MEDS: ASPIRIN 81 MG CHEWABLE TABLETS PO SCH (09:15)
--- NOTE | 2019-03-10 12:58 | PN ---
Progress Note, Physician Chief Complaint: patient wants to go to [facility] for rehab because his daughter works there - Current Medication List Current Medications: Active Medications Aspirin (Asa -) 81 mg PO DAILY [facility] Last Admin: 03/10/19 09:15 Dose: 81 mg Atorvastatin Calcium (Lipitor -) 40 mg PO HS [facility] Last Admin: 03/09/19 21:26 Dose: 40 mg Enoxaparin Sodium (Lovenox -) 80 mg SQ BID [facility] Last Admin: 03/10/19 09:15 Dose: 80 mg Gabapentin (Neurontin -) 400 mg PO TID [facility] Last Admin: 03/10/19 05:49 Dose: 400 mg Copaxone 40mg Inj 1 each SQ ONCE ONE Stop: 03/03/19 16:01 Warfarin Sodium 5 mg/ Warfarin (Sodium 3 mg) 8 mg PO DAILY@1800 [facility] Last Admin: 03/09/19 17:17 Dose: 8 mg - Objective Vital Signs: Vital Signs Temperature 97.6 F 03/10/19 08:17 Pulse Rate 82 03/10/19 08:17 Respiratory Rate 18 03/10/19 08:22 Blood Pressure 117/63 03/10/19 08:17 O2 Sat by Pulse Oximetry (%) 96 03/10/19 08:22 Constitutional: Yes: Calm Cardiovascular: Yes: Regular Rate and Rhythm, S1, S2 Respiratory: Yes: CTA Bilaterally Gastrointestinal: Yes: Normal Bowel Sounds, Soft Edema: No Neurological: Yes: Alert, Oriented Labs: CBC, BMP 03/08/19 05:26 03/03/19 05:10 INR, PTT INR 2.09 (0.83-1.09) H 03/10/19 05:08 Problem List - Problems (1) CVA (cerebral vascular accident) Assessment/Plan: h/o cva on heparin drip bridge to coumadin- now therapeutic was on eliquis before but was stopped because he had stroke CTA of head and neck noted [facility] Code(s): I63.9 - CEREBRAL INFARCTION, UNSPECIFIED (2) Chest pain Assessment/Plan: iv heparin to coumadin now therapeutic echo noted echo done at outside hospital last month showed thrombus in left ventricle Code(s): R07.9 - CHEST PAIN, UNSPECIFIED (3) Thrombus in heart chamber Assessment/Plan: iv heparin alexandra martha to bridge to coumadin prior to discharge will await cardiology recommendations will need STEPHANIE to be done at outside hospital Code(s): I51.3 - INTRACARDIAC THROMBOSIS, NOT ELSEWHERE CLASSIFIED Assessment/Plan dc to [facility] INR check [facility]
--- NOTE | 2019-03-10 13:03 | DS ---
Physical Examination Vital Signs: Vital Signs Temperature 97.6 F 03/10/19 08:17 Pulse Rate 82 03/10/19 08:17 Respiratory Rate 18 03/10/19 08:22 Blood Pressure 117/63 03/10/19 08:17 O2 Sat by Pulse Oximetry (%) 96 03/10/19 08:22 patient seen and examined wants to go to rehab Constitutional: Yes: Calm Cardiovascular: Yes: Regular Rate and Rhythm, S1, S2 Respiratory: Yes: CTA Bilaterally Gastrointestinal: Yes: Normal Bowel Sounds, Soft Edema: No Neurological: Yes: Alert, Oriented Labs: CBC, BMP 03/08/19 05:26 03/03/19 05:10 Discharge Summary Reason For Visit: CHEST PAIN Current Active Problems CVA (cerebral vascular accident) (Acute) Chest pain (Acute) [place] cardiac risk 10-20% in next 10 years (Acute) Numbness and tingling in left arm (Acute) Thrombus in heart chamber (Acute) Other Procedures: neck CTA no large vessel stenosis seen Hospital Course: left sided chest pain with numbness to left upper arm and leg with decreased sensation PCP:Dr. Summers Neurologist: Dr. Pabon (in [place] HISTORY OF PRESENT ILLNESS: 53 year old male with history of multiple sclerosis for 18 years, factor 5 mutation and coronary artery disease with balloon angioplasty in 2017 who presents with symptoms of left sided chest pain with numbness to his left upper arm and lower leg and new decreased left leg sensation. He reports he was at [facility] in [place] and was hospitalized in the ICU setting for 3 days and found to have a stroke, carotid artery stenosis with a 50 % lesion to unknown side as per patient and by TTE with bubble study found to have a PFO and thrombus. He reports he was placed Eliquis but failed therapy due to him clotting and he was started on Coumadin therapy for INR goal of 3.0 as per patient. Upon evaluation in the ER he was found to have a normal troponin, EKG with a normal sinus rhythm, no signs of acute ischemia, no evidence of atrial fibrillation on telemetry.INR 1.67. Chest pain is reproducible on palpation. CT scan of head with no hemorrhage, stroke not excluded. started on heparin to boni had echo done seen by cardiology as well AC for factor V deficiency - Instructions Diet, Activity, Other Instructions: check INR MWF goal inr 2-3 Disposition: [facility]ARE [facility]ACILITY - Home Medications Comprehensive Discharge Medication List: Ambulatory Orders Gabapentin [Neurontin] 400 mg PO TID 10/14/17 Oxycodone HCl 20 mg PO Q6H PRN 08/29/18 Morphine *Sr* [Ms Contin -] 15 mg PO Q4H PRN MDD 15 09/06/18 Enoxaparin Sodium [Lovenox] 80 mg SQ ACHS 03/02/19 Warfarin Sodium [Coumadin] 5 mg PO HS 03/02/19
[2019-03-10 15:57] VITALS: BP 129/90; PULSE 112; TEMP 97.9
== END 2019-03-10 16:14 | DRG 45 ==
LOC: JER 16:31 → JERBED 23:02 → J4W 03-03 02:41
PROVIDERS: ADMIT Family Medicine; ATTEND Family Medicine
DX: I63.9 Cerebral infarction, unspecified (principal); G35 Multiple sclerosis; D68.51 Activated protein C resistance; I65.29 Occlusion and stenosis of unspecified carotid artery; F10.20 Alcohol dependence, uncomplicated; F11.10 Opioid abuse, uncomplicated; R07.89 Other chest pain; I51.3 Intracardiac thrombosis, not elsewhere classified; F14.20 Cocaine dependence, uncomplicated; R20.2 Paresthesia of skin; I25.10 Atherosclerotic heart disease of native coronary artery without angina pectoris; Z95.5 Presence of coronary angioplasty implant and graft; Z91.89 Other specified personal risk factors, not elsewhere classified; Z79.01 Long term (current) use of anticoagulants
CPT/HCPCS: 36415; 70450-TC; 70496-TC; 70498-TC; 80048; 80053; 81003; 82465; 82550; 83718; 83721; 84439; 84478; 84484; 85025; 85027; 85610; 85730; 86850; 86900; 86901; 93005; 93010; 93306-TC; 93880-TC; 97116-GP; 97162-GP; 99282-25; J1644; J7030